=== PATIENT | female | born 1975 | race Caucasian/White ===

== ENCOUNTER 2019-06-14 11:20 | Emergency (ER) | payer MEDICAID ==
--- NOTE | 2019-06-14 12:04 | EDM.PDOC ---
ED HPI GENERAL MEDICAL PROBLEM - General Chief Complaint: Fever Stated Complaint: COUGH,FEVER,RIGHT RIB PAIN Time Seen by Provider: 06/14/19 11:50 Source of Information: Reports: Patient, RN History Limitations: Reports: No Limitations - History of Present Illness INITIAL COMMENTS - FREE TEXT/NARRATIVE: 44 yo female presents with a cough and rib pain. Reports low grade fevers intermittently for about a week. Has clear rhinorrhea. Was given prednisone and azithromycin recently without much benefit. Has a nebulizer for her wheezing. Was apparently told by a small lot operator that she has asthma. Rib pain on R ant/ lateral chest catarina bad with coughing. Is currently taking acetaminophen and ibuprofen. Onset: Gradual Duration: Day(s):, Constant Location: Reports: Chest (R ant/lat.) Quality: Reports: Sharp, Stabbing Severity: Moderate Improves with: Reports: Rest (and not coughing or deep breathing.) Worsens with: Reports: Movement Context: Reports: Other (see HPI) Associated Symptoms: Reports: Cough, Fever/Chills. Denies: Shortness of Breath Treatments NURSING HOME ASSISTANT: Reports: Acetaminophen, NSAIDS Right Lower Chest Pain Score (Numeric/FACES): 9 - Related Data Allergies Allergy/AdvReac Type Severity Reaction Status Date / Time blue dye Allergy Anaphylactic Verified 06/14/19 11:38 Shock dofetilide Allergy Cannot Verified 06/14/19 11:38 Remember flecainide Allergy Anaphylactic Verified 06/14/19 11:38 Shock latex Allergy Hives Verified 06/14/19 11:38 Penicillins Allergy Anaphylactic Verified 06/14/19 11:38 Shock propafenone Allergy Anaphylactic Verified 06/14/19 11:38 Shock Sulfa (Sulfonamide Allergy Anaphylactic Verified 06/14/19 11:38 Antibiotics) Shock yellow dye Allergy Anaphylactic Verified 06/14/19 11:38 Shock codeine AdvReac Vomiting Verified 06/14/19 11:38 Home Meds: Home Meds Albuterol Sulfate 2.5 mg IH Q4HR 06/14/19 [History] Albuterol [Ventolin HFA] 1 puff .XX ASDIRECTED 06/14/19 [History] Estrogens, Conjugated [Premarin] 0.625 mg PO DAILY 06/14/19 [History] Fluticasone Propionate [Flovent HFA] 1 puff INH BID 06/14/19 [History] Levothyroxine Sodium [Synthroid] 175 mcg PO ACBREAKFAST 06/14/19 [History] Topiramate [Topamax] 50 mg PO DAILY 06/14/19 [History] buPROPion HCl [Bupropion Xl] 450 mg PO DAILY 06/14/19 [History] Past Medical History Cardiovascular History: Reports: Automatic Implantable Cardioverter Defibrillators, Pacemaker Other Cardiovascular History: chronic v-fib. 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: Endocrine/Metabolic History: Reports: Other (See Below) Other Endocrine/Metabolic History: thyroid cancer Oncologic (Cancer) History: Reports: Ovarian, Thyroid - Past Surgical History HEENT Surgical History: Reports: Adenoidectomy, Tonsillectomy Cardiovascular Surgical History: Reports: AICD, Other (See Below) Other Cardiovascular Surgeries/Procedures: cardiac surgery GI Surgical History: Reports: Appendectomy, Cholecystectomy Female Surgical History: Reports: Hysterectomy, Salpingo-Oophorectomy Social & Family History - Tobacco Use Smoking Status *Q: Never Smoker - Caffeine Use Caffeine Use: Reports: None - Recreational Drug Use Recreational Drug Use: No ED ROS GENERAL - Review of Systems Review Of Systems: See Below Constitutional: Reports: Fever, Chills HEENT: Reports: Rhinitis. Denies: Ear Pain, Throat Pain Respiratory: Reports: Wheezing, Pleuritic Chest Pain, Cough. Denies: Shortness of Breath, Sputum, Hemoptysis Cardiovascular: Reports: No Symptoms GI/Abdominal: Reports: No Symptoms : Reports: No Symptoms Skin: Reports: No Symptoms Neurological: Reports: No Symptoms Psychiatric: Reports: No Symptoms ED EXAM, GENERAL - Physical Exam Exam: See Below Exam Limited By: No Limitations General Appearance: Alert, WD/WN, No Apparent Distress Eye Exam: Bilateral Eye: Normal Inspection Ears: Normal External Exam, Normal Canal, Hearing Grossly Normal, Normal TMs Ear Exam: Bilateral Ear: Auricle Normal, Canal Normal, TM normal Nose: Clear Rhinorrhea Throat/Mouth: Normal Inspection, Normal Lips, Normal Oropharynx, Normal Voice, No Airway Compromise Head: Atraumatic, Normocephalic Neck: Normal Inspection Respiratory/Chest: No Respiratory Distress, No Accessory Muscle Use, Wheezing ( faint). No: Respiratory Distress, Crackles, Rales, Rhonchi, Retractions Cardiovascular: Regular Rate, Rhythm, No Edema Extremities: Normal Inspection Neurological: Alert, Oriented, CN II-XII Intact, Normal Cognition, No Motor/ Sensory Deficits Psychiatric: Normal Affect, Normal Mood Skin Exam: Warm, Dry, Intact, Normal Color, No Rash Course - Vital Signs Last Recorded V/S: Last Vital Signs Temp 36.9 C 06/14/19 11:48 Pulse 82 06/14/19 11:48 Resp 16 06/14/19 11:34 BP 133/80 06/14/19 11:48 Pulse Ox 96 06/14/19 11:48 - Orders/Labs/Meds Labs: Laboratory Tests 06/14/19 Range/Units 12:01 WBC 9.7 (4.5-11.0) K/uL RBC 4.56 (3.30-5.50) M/uL Hgb 14.0 (12.0-15.0) g/dL Hct 42.1 (36.0-48.0) % MCV 92 (80-98) fL MCH 31 (27-31) pg MCHC 33 (32-36) % Plt Count 326 (150-400) K/uL Departure - Departure Time of Disposition: 12:33 Disposition: Home, Self-Care 01 Condition: Good Clinical Impression: Bronchospasm, Rib pain on right side, Cough - Discharge Information *PRESCRIPTION DRUG MONITORING PROGRAM REVIEWED*: No *COPY OF PRESCRIPTION DRUG MONITORING REPORT IN PATIENT JAG: No Instructions: Chest Wall Pain, [id number] Referrals: PCP,None [Primary Care Provider] - Forms: ED Department Discharge Additional Instructions: Add budesonide twice daily to your nebulizer. Use your albuterol every 4 hrs until you are over your current illness. Continue acetaminophen up to 1000 mg every 6 hrs for pain relief. Add ibuprofen 600 mg every 6 hrs as needed for added relief. Use Delsym for cough, follow package instructions. Consider use of a rib belt for rib support. Seek our allergy testing if able to find out what is causing your wheezing, you may be able to get allergy shots to reduce your sensitivity to agents you have become allergic to. Recheck as needed.
== END 2019-06-14 12:55 | disposition home or self-care (01) ==
LOC: JP.ED 11:20
DX: J98.01 Acute bronchospasm (principal); R07.81 Pleurodynia; Z88.0 Allergy status to penicillin; Z88.2 Allergy status to sulfonamides; Z88.5 Allergy status to narcotic agent; Z88.8 Allergy status to other drugs, medicaments and biological substances; Z91.040 Latex allergy status; Z91.048 Other nonmedicinal substance allergy status; Z79.899 Other long term (current) drug therapy
CPT/HCPCS: 36415; 85027; 99283

== ENCOUNTER 2019-07-10 12:47 | Emergency (ER) | payer MEDICAID ==
--- NOTE | 2019-07-10 13:21 | EDM.PDOC ---
ED HPI GENERAL MEDICAL PROBLEM - General Chief Complaint: Allergic Reaction Stated Complaint: MED REACTION Time Seen by Provider: 07/10/19 13:15 Source of Information: Reports: Patient History Limitations: Reports: No Limitations - History of Present Illness INITIAL COMMENTS - FREE TEXT/NARRATIVE: 44-year-old female who has a history of multiple allergies, took her first dose of Macrobid this morning for a recently diagnosed UTI. Within 2 hours she had a widespread erythematous very itchy rash, nasal congestion and mild shortness of breath. She took an EpiPen dose, is feeling better but called her primary provider and they recommended she come in to be checked. She still has "numb lips", still has itchy arms and stomach but the rash has improved. Shortness of breath has improved as well. Onset: Sudden Duration: Hour(s): (2 hours ago) Location: Reports: Generalized Associated Symptoms: Reports: Shortness of Breath. Denies: Confusion, Chest Pain, Fever/Chills, Nausea/Vomiting - Related Data Allergies Allergy/AdvReac Type Severity Reaction Status Date / Time blue dye Allergy Anaphylactic Verified 07/10/19 13:02 Shock dofetilide Allergy Cannot Verified 07/10/19 13:02 Remember flecainide Allergy Anaphylactic Verified 07/10/19 13:02 Shock latex Allergy Hives Verified 07/10/19 13:02 nitrofurantoin Allergy Hives Verified 07/10/19 13:02 [From Macrobid] Penicillins Allergy Anaphylactic Verified 07/10/19 13:02 Shock propafenone Allergy Anaphylactic Verified 07/10/19 13:02 Shock Sulfa (Sulfonamide Allergy Anaphylactic Verified 07/10/19 13:02 Antibiotics) Shock yellow dye Allergy Anaphylactic Verified 07/10/19 13:02 Shock codeine AdvReac Vomiting Verified 07/10/19 13:02 Home Meds: Home Meds Albuterol Sulfate 2.5 mg IH Q4HR 06/14/19 [History] Albuterol [Ventolin HFA] 1 puff .XX ASDIRECTED 06/14/19 [History] Budesonide [Pulmicort] 0.25 mg .XX BID #60 neb 06/14/19 [Rx] Estrogens, Conjugated [Premarin] 0.625 mg PO DAILY 06/14/19 [History] Fluticasone Propionate [Flovent HFA] 1 puff INH BID 06/14/19 [History] Levothyroxine Sodium [Synthroid] 175 mcg PO ACBREAKFAST 06/14/19 [History] Topiramate [Topamax] 50 mg PO DAILY 06/14/19 [History] buPROPion HCl [Bupropion Xl] 450 mg PO DAILY 06/14/19 [History] Past Medical History Cardiovascular History: Reports: Automatic Implantable Cardioverter Defibrillators, Pacemaker Other Cardiovascular History: chronic v-fib. 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: Endocrine/Metabolic History: Reports: Other (See Below) Other Endocrine/Metabolic History: thyroid cancer Oncologic (Cancer) History: Reports: Ovarian, Thyroid - Past Surgical History HEENT Surgical History: Reports: Adenoidectomy, Tonsillectomy Cardiovascular Surgical History: Reports: AICD, Other (See Below) Other Cardiovascular Surgeries/Procedures: cardiac surgery GI Surgical History: Reports: Appendectomy, Cholecystectomy Female Surgical History: Reports: Hysterectomy, Salpingo-Oophorectomy Social & Family History - Tobacco Use Smoking Status *Q: Never Smoker - Caffeine Use Caffeine Use: Reports: None ED ROS ALLERGIC REACTION - Review of Systems Review Of Systems: See Below Constitutional: Reports: Malaise. Denies: Fever, Chills HEENT: Reports: Rhinitis Respiratory: Reports: Shortness of Breath, Wheezing Cardiovascular: Denies: Chest Pain GI/Abdominal: Denies: Abdominal Pain, Nausea, Vomiting Skin: Reports: Rash ED EXAM GENERAL NO PERIP PULSE - Physical Exam Exam: See Below Exam Limited By: No Limitations General Appearance: Alert, No Apparent Distress, Anxious Throat/Mouth: Normal Inspection Head: Atraumatic Respiratory/Chest: No Respiratory Distress, Lungs Clear Cardiovascular: Regular Rate, Rhythm. No: Tachycardia Extremities: No: Pedal Edema Neurological: Alert, Oriented Psychiatric: Anxious Skin Exam: Warm, Dry, Other (Some scattered blanching erythema on the chest, cheeks and upper arms, no urticaria) Course - Vital Signs Last Recorded V/S: Last Vital Signs Temp 95.7 F 07/10/19 13:07 Pulse 91 07/10/19 13:07 Resp 17 07/10/19 13:07 BP 150/65 H 07/10/19 13:07 Pulse Ox 96 07/10/19 13:07 - Orders/Labs/Meds Meds: Medications Discontinued Medications Generic Name Dose Route Start Last Admin Trade Name [place] PRN Reason Stop Dose Admin Diphenhydramine HCl 50 mg 07/10/19 13:27 07/10/19 13:44 Benadryl IM 07/10/19 13:28 50 mg ONETIME ONE Administration - Re-Assessments/Exams Free Text/Narrative Re-Assessment/Exam: 07/10/19 13:51 Patient was given 50 mg of IM Benadryl and will be observed. 07/10/19 14:09 Patient continued to improve and stabilize. She'll be continued on 40 mg of prednisone daily for the next 2-5 days, and she can start cephalexin tomorrow 3 times daily for the UTI. I also refilled her prescription for EpiPen's for future use. She can return anytime if worsening despite treatment. Departure - Departure Time of Disposition: 14:16 Disposition: Home, Self-Care 01 Clinical Impression: Allergic reaction caused by a drug Qualifiers: Encounter type: initial encounter Qualified Code(s): T78.40XA - Allergy, unspecified, initial encounter - Discharge Information Instructions: Allergies, Adult, [id number] Referrals: PCP,None [Primary Care Provider] - Forms: ED Department Discharge Care Plan Goals: Take 4 pills of prednisone with food daily for the next 2-5 days. Start antibiotic tomorrow, take 3 times daily for 10 doses. Continue with Benadryl as needed for rash and itching, and felt EpiPen prescription for further use. Return anytime if worsening despite treatment. Inform your primary doctor of the allergic reaction to Macrobid.
[2019-07-10] MEDS: diphenhydrAMINE 50 MG/ML SDV IM ONE (13:44)
== END 2019-07-10 14:16 | disposition home or self-care (01) ==
LOC: JP.ED 12:47
DX: L29.9 Pruritus, unspecified (principal); T37.8X5A Adverse effect of other specified systemic anti-infectives and antiparasitics, initial encounter; J45.909 Unspecified asthma, uncomplicated; Z91.041 Radiographic dye allergy status; Z91.040 Latex allergy status; Z88.8 Allergy status to other drugs, medicaments and biological substances; Z88.0 Allergy status to penicillin; Z88.2 Allergy status to sulfonamides; Z88.5 Allergy status to narcotic agent; Z79.899 Other long term (current) drug therapy
CPT/HCPCS: 96372; 99284-25; J1200

== ENCOUNTER 2019-10-13 18:26 | Emergency (ER) | payer MEDICAID, OTHER ==
--- NOTE | 2019-10-13 19:08 | EDM.PDOC ---
ED HPI GENERAL MEDICAL PROBLEM - General Chief Complaint: ENT Problem Stated Complaint: PAIN POST SURGERY Time Seen by Provider: 10/13/19 18:58 Source of Information: Reports: Patient History Limitations: Reports: No Limitations - History of Present Illness INITIAL COMMENTS - FREE TEXT/NARRATIVE: Patient presents for evaluation of retro-ocular pain which has come up and stayed over the last 2 days. On Thursday, 11 October, she underwent bilateral septoplasty and sinus surgery with ENT surgeons at the [facility]. Surgery originally was scheduled for approximately 2.5 hours but ended up going 5 hours because of difficulties completing the procedure. She has a plastic splint in place in the nostrils since the surgery. She is doing irrigation of the nostrils and sinus region. She gets some blood in the irrigant fluid but no hai bleeding. A forehead thermometer at home read 102. She has taken a couple doses of Tylenol in the last 24 hours but the retro-ocular pain, which is bilateral, is unchanged. No new symptoms apart from this area she was given a prescription for hydrocodone but does not like how narcotics make her feel and hasn't used anything for pain apart from Tylenol. 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: Acetaminophen - Related Data Allergies Allergy/AdvReac Type Severity Reaction Status Date / Time blue dye Allergy Anaphylactic Verified 10/13/19 19:03 Shock dofetilide Allergy Cannot Verified 10/13/19 19:03 Remember flecainide Allergy Anaphylactic Verified 10/13/19 19:03 Shock latex Allergy Hives Verified 10/13/19 19:03 nitrofurantoin Allergy Hives Verified 10/13/19 19:03 [From Macrobid] Penicillins Allergy Anaphylactic Verified 10/13/19 19:03 Shock propafenone Allergy Anaphylactic Verified 10/13/19 19:03 Shock Sulfa (Sulfonamide Allergy Anaphylactic Verified 10/13/19 19:03 Antibiotics) Shock yellow dye Allergy Anaphylactic Verified 10/13/19 19:03 Shock codeine AdvReac Vomiting Verified 10/13/19 19:03 Home Meds: Home Meds Albuterol Sulfate 2.5 mg IH Q4HR 06/14/19 [History] Albuterol [Ventolin HFA] 1 puff .XX ASDIRECTED 06/14/19 [History] Budesonide [Pulmicort] 0.25 mg .XX BID #60 neb 06/14/19 [Rx] Estrogens, Conjugated [Premarin] 0.625 mg PO DAILY 06/14/19 [History] Fluticasone Propionate [Flovent HFA] 1 puff INH BID 06/14/19 [History] Levothyroxine Sodium [Synthroid] 175 mcg PO ACBREAKFAST 06/14/19 [History] buPROPion HCl [Bupropion Xl] 450 mg PO DAILY 06/14/19 [History] Acetaminophen [Tylenol] 325 mg PO DAILY 10/13/19 [History] Aspirin [Halfprin] 81 mg PO DAILY 10/13/19 [History] EPINEPHrine [Epinephrine] 0.3 mg IM ASDIRECTED 10/13/19 [History] Fluticasone Propion/Salmeterol [Wixela 250-50 Inhub] 1 dose IN ASDIRECTED [History] Ibuprofen 800 mg PO DAILY 10/13/19 [History] Omeprazole 40 mg PO DAILY 10/13/19 [History] Past Medical History Cardiovascular History: Reports: Automatic Implantable Cardioverter Defibrillators, Pacemaker Other Cardiovascular History: chronic v-fib. 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: Endocrine/Metabolic History: Reports: Other (See Below) Other Endocrine/Metabolic History: thyroid cancer Oncologic (Cancer) History: Reports: Ovarian, Thyroid - Past Surgical History HEENT Surgical History: Reports: Adenoidectomy, Naso-Sinus Surgery, Tonsillectomy Cardiovascular Surgical History: Reports: AICD, Other (See Below) Other Cardiovascular Surgeries/Procedures: cardiac surgery GI Surgical History: Reports: Appendectomy, Cholecystectomy Female Surgical History: Reports: Hysterectomy, Salpingo-Oophorectomy Social & Family History - Caffeine Use Caffeine Use: Reports: None ED ROS ENT - Review of Systems Review Of Systems: Comprehensive ROS is negative, except as noted in HPI. ED EXAM, ENT - Physical Exam Exam: See Below Exam Limited By: No Limitations General Appearance: Alert, Moderate Distress Nose: Clear Rhinorrhea, Nasal Swelling, Nasal Tenderness, Other (There is a translucent nasal splint in place in each of the nostrils.). No: Septal Hematoma, Active Bleeding, Dried Blood Neck: Normal Inspection Respiratory/Chest: No Respiratory Distress, Lungs Clear Course - Vital Signs Last Recorded V/S: Last Vital Signs Temp 35.2 C 10/13/19 19:02 Pulse 79 10/13/19 19:02 Resp 16 10/13/19 19:02 BP 113/66 10/13/19 19:02 Pulse Ox 96 10/13/19 19:02 - Re-Assessments/Exams Free Text/Narrative Re-Assessment/Exam: 10/13/19 19:30 I put a call into the answering service for her surgical group at [phone]. They will contact the on-call surgeon and have them contact us here. 10/13/19 19:52 I reviewed her case with Dr. Geronimo, the on-call surgeon from their group. He recommends using Afrin nasal spray as part of her irrigation regimen along with some stronger pain medication. When I discussed this with the patient, she is adamant against using hydrocodone as she has a daughter that was addicted to it. We settled in stand on using tramadol. A prescription was sent with her for tramadol 50 mg, 12 tablets; one half or 1 tablet up to 3 times a day as needed. She should contact her surgeon tomorrow and update them on how she did overnight. Departure - Departure Time of Disposition: 19:53 Disposition: Home, Self-Care 01 Condition: Good Clinical Impression: Sinus pain, H/O sinus surgery - Discharge Information *PRESCRIPTION DRUG MONITORING PROGRAM REVIEWED*: Not Applicable *COPY OF PRESCRIPTION DRUG MONITORING REPORT IN PATIENT JAG: Not Applicable Instructions: Tramadol tablets, Sinus Endoscopy, Care After, How to Perform a Sinus Rinse Referrals: Pat Funes PA-C [Primary Care Provider] - Forms: ED Department Discharge Additional Instructions: Pickup tramadol tablets and use as prescribed for your pain. Also get some Afrin (oxymetazoline) nasal spray to use as part of your irrigation plan. Contact your surgeon's office tomorrow and let them know how you feel with these changes. You should continue your antibiotic. Sepsis Event Note - Focused Exam Vital Signs: Vital Signs Temp Pulse Resp BP Pulse Ox 10/13/19 19:02 35.2 C 79 16 113/66 96 10/13/19 18:40 35.2 C 79 16 113/66 96 Date Exam was Performed: 10/13/19 Time Exam was Performed: 21:47
== END 2019-10-13 20:04 | disposition home or self-care (01) ==
LOC: JP.ED 18:26
DX: J34.89 Other specified disorders of nose and nasal sinuses (principal); J45.909 Unspecified asthma, uncomplicated; Z98.890 Other specified postprocedural states; Z91.041 Radiographic dye allergy status; Z91.040 Latex allergy status; Z88.1 Allergy status to other antibiotic agents; Z88.2 Allergy status to sulfonamides; Z88.5 Allergy status to narcotic agent; Z88.8 Allergy status to other drugs, medicaments and biological substances; Z79.51 Long term (current) use of inhaled steroids; Z79.82 Long term (current) use of aspirin
CPT/HCPCS: 99283

== ENCOUNTER 2019-11-06 10:58 | Emergency (ER) | payer MEDICAID ==
--- NOTE | 2019-11-06 12:08 | EDM.PDOC ---
ED HPI GENERAL MEDICAL PROBLEM - General Chief Complaint: Genitourinary Problem Stated Complaint: BLADDER INFECTION Time Seen by Provider: 11/06/19 12:09 Source of Information: Reports: Patient History Limitations: Reports: No Limitations - History of Present Illness INITIAL COMMENTS - FREE TEXT/NARRATIVE: pt has had 3 UTIs in the last 2 monthes. She was in Sep. She has also been off of her premarin due to insurance reasons. She is working to get back on this. She sees herself as mcfarlane and now she is having hot flashes Onset: Gradual, Other ( Her urine symptoms started about 1.5 weeks ago. ) Duration: Hour(s): Location: Reports: Generalized Left Flank Pain Score (Numeric/FACES): 5 - Related Data Allergies Allergy/AdvReac Type Severity Reaction Status Date / Time blue dye Allergy Anaphylactic Verified 11/06/19 11:23 Shock dofetilide Allergy Cannot Verified 11/06/19 11:23 Remember flecainide Allergy Anaphylactic Verified 11/06/19 11:23 Shock Penicillins Allergy Anaphylactic Verified 11/06/19 11:23 Shock propafenone Allergy Anaphylactic Verified 11/06/19 11:23 Shock Sulfa (Sulfonamide Allergy Anaphylactic Verified 11/06/19 11:23 Antibiotics) Shock yellow dye Allergy Anaphylactic Verified 11/06/19 11:23 Shock codeine AdvReac Vomiting Verified 11/06/19 11:23 Home Meds: Home Meds Albuterol Sulfate 2.5 mg IH Q4HR 06/14/19 [History] Albuterol [Ventolin HFA] 1 puff .XX ASDIRECTED 06/14/19 [History] Budesonide [Pulmicort] 0.25 mg .XX BID #60 neb 06/14/19 [Rx] Estrogens, Conjugated [Premarin] 0.625 mg PO DAILY 06/14/19 [History] Levothyroxine Sodium [Synthroid] 175 mcg PO ACBREAKFAST 06/14/19 [History] buPROPion HCl [Bupropion Xl] 450 mg PO DAILY 06/14/19 [History] Acetaminophen [Tylenol] 325 mg PO DAILY 10/13/19 [History] Aspirin [Halfprin] 81 mg PO DAILY 10/13/19 [History] EPINEPHrine [Epinephrine] 0.3 mg IM ASDIRECTED 01/30/20 [History] Fluticasone Propion/Salmeterol [Wixela 250-50 Inhub] 1 dose IN ASDIRECTED [History] Ibuprofen 800 mg PO DAILY 10/13/19 [History] Omeprazole 40 mg PO DAILY 10/13/19 [History] Past Medical History Cardiovascular History: Reports: [place], Pacemaker, Prior Cardiac Arrest Other Cardiovascular History: chronic v-fib. 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: Endocrine/Metabolic History: Reports: Other (See Below) Other Endocrine/Metabolic History: thyroid removed Oncologic (Cancer) History: Reports: Ovarian - Past Surgical History HEENT Surgical History: Reports: Adenoidectomy, Naso-Sinus Surgery, Tonsillectomy Cardiovascular Surgical History: Reports: Cardiac Ablation, Pacer, Other (See Below) Other Cardiovascular Surgeries/Procedures: cardiac surgery GI Surgical History: Reports: Appendectomy, Cholecystectomy Female Surgical History: Reports: Hysterectomy, Salpingo-Oophorectomy Social & Family History - Tobacco Use Smoking Status *Q: Never Smoker - Caffeine Use Caffeine Use: Reports: Soda Other Caffeine Use: 1 per day - Recreational Drug Use Recreational Drug Use: No ED ROS GENERAL - Review of Systems Review Of Systems: See Below Constitutional: Reports: Chills HEENT: Reports: No Symptoms Respiratory: Reports: No Symptoms Cardiovascular: Reports: No Symptoms Endocrine: Reports: No Symptoms GI/Abdominal: Reports: Other (pt does have some flank pain. ) : Reports: Dysuria, Frequency, Other ( urine is very foul in nature) Musculoskeletal: Reports: No Symptoms Neurological: Reports: No Symptoms ED EXAM, GI/ABD - Physical Exam Exam: See Below Text/Narrative:: pt arrived with a history of urionary frquency and foul smelling urione. She does drink alot of water. Exam Limited By: No Limitations General Appearance: Alert, Anxious Ears: Normal TMs Nose: Normal Inspection Throat/Mouth: Normal Inspection Head: Atraumatic Neck: Normal Inspection Respiratory/Chest: No Respiratory Distress Cardiovascular: Regular Rate, Rhythm GI/Abdominal Exam: Non-Tender Rectal (Female) Exam: Deferred Back Exam: Normal Inspection Extremities: Normal Inspection Neurological: Alert, Oriented, Normal Cognition Course - Vital Signs Last Recorded V/S: Last Vital Signs Temp 36.3 C 11/06/19 11:14 Pulse 79 11/06/19 11:14 Resp 16 11/06/19 11:14 BP 134/74 11/06/19 11:14 Pulse Ox 96 11/06/19 11:14 - Orders/Labs/Meds Orders: Active Orders 24 hr Category Date Time Status CULTURE URINE [RM] Stat Lab 11/06/19 11:55 Received Labs: Laboratory Tests 11/06/19 Range/Units 11:01 Urine Color Yellow (YELLOW) Urine Appearance Cloudy A (CLEAR) Urine pH 6.5 (5.0-8.0) Ur Specific [place] 1.020 (1.008-1.030) Urine Protein Negative (NEGATIVE) mg/dL Urine Glucose (UA) Negative (NEGATIVE) mg/dL Urine Ketones Negative (NEGATIVE) mg/dL Urine Occult Blood Negative (NEGATIVE) Urine Nitrite Positive H (NEGATIVE) Urine Bilirubin Negative (NEGATIVE) Urine Urobilinogen 0.2 (0.2-1.0) EU/dL Ur Leukocyte Esterase Trace H (NEGATIVE) Urine RBC 0-5 (0-5) Urine WBC 10-20 H (0-5) Ur Epithelial Cells Moderate Amorphous Sediment Not seen Urine Bacteria Many Urine Mucus Not seen - Re-Assessments/Exams Free Text/Narrative Re-Assessment/Exam: 11/06/19 12:14 urine has a positive nitrite, and does look infected. A culture was set up. Departure - Departure Time of Disposition: 12:04 Disposition: Home, Self-Care 01 Condition: Fair Clinical Impression: UTI (urinary tract infection) - Discharge Information Referrals: Pat Funes PA-C [Primary Care Provider] - Forms: ED Department Discharge Care Plan Goals: push fluids, cipro 500mg bid,--for 10 days, appt with regular provider to recheck urine to see if it completely clears. Also the provider need to help faciltate getting her back on her premarin and follow if she has had an acute kidney injury. Sepsis Event Note - Evaluation Sepsis Screening Result: No Definite Risk - Focused Exam Vital Signs: Vital Signs Temp Pulse Resp BP Pulse Ox 11/06/19 11:14 36.3 C 79 16 134/74 96 Date Exam was Performed: 11/06/19 Time Exam was Performed: 12:09 - My Orders Last 24 Hours: My Active Orders 11/06/19 11:55 CULTURE URINE [RM] Stat - Assessment/Plan Last 24 Hours: My Active Orders 11/06/19 11:55 CULTURE URINE [] Stat
== END 2019-11-06 12:15 | disposition home or self-care (01) ==
LOC: JP.ED 10:58
DX: N39.0 Urinary tract infection, site not specified (principal); J45.909 Unspecified asthma, uncomplicated; Z79.82 Long term (current) use of aspirin; Z79.899 Other long term (current) drug therapy; Z88.5 Allergy status to narcotic agent; Z88.2 Allergy status to sulfonamides; Z91.09 Other allergy status, other than to drugs and biological substances; Z88.0 Allergy status to penicillin; Z88.8 Allergy status to other drugs, medicaments and biological substances
CPT/HCPCS: 81001; 87086; 87088; 87186; 99283

== ENCOUNTER 2019-12-09 10:33 | Observation (INO) | payer MEDICAID ==
[2019-12-09] MEDS: Dextrose 5%-Lactated Ringers 1,000 ML IV SCH ×2 (12:18→19:46)
[2019-12-09] MEDS ORDERED: Lidocaine 2% Viscous Solution 15 ML Cup ONE (12:30)
[2019-12-09] MEDS ORDERED: Lidocaine 4% Top Soln 50 ML Bottle ONE (12:30)
[2019-12-09] MEDS ORDERED: Propofol 200 MG/20 ML SDV ONE (12:41)
[2019-12-09] MEDS ORDERED: fentaNYL 100 MCG/2 ML SDV ONE (12:42)
[2019-12-09] MEDS ORDERED: Midazolam 1 MG/ML 2 ML SDV ONE (12:42)
[2019-12-09] MEDS ORDERED: Lidocaine 4% Top Soln LTA 4 ML Syringe Kit ONE (12:43)
[2019-12-09] MEDS ORDERED: Albuterol 0.083% 2.5 MG/3 ML Neb Soln NEB ONE (16:21)
[2019-12-09] MEDS ORDERED: Ondansetron 4 MG Tab.DIS PO PRN (16:48)
[2019-12-09] MEDS ORDERED: Ondansetron 4 MG/2 ML SDV IV PRN (16:48)
[2019-12-09] MEDS ORDERED: LORazepam 2 MG/ML SDV IVPUSH PRN (16:48)
[2019-12-09] MEDS ORDERED: Magnesium Hydroxide 400 MG/5 ML Susp 30 ML Cup PO PRN (16:48)
[2019-12-09] MEDS ORDERED: Sodium Chloride 0.9% 10 ML Syringe FLUSH PRN (16:48)
[2019-12-09] MEDS ORDERED: Acetaminophen 325 MG Tab PO PRN (16:48)
[2019-12-09] MEDS ORDERED: Ibuprofen 600 MG Tab PO PRN (16:48)
[2019-12-09] MEDS ORDERED: Albuterol 0.083% 2.5 MG/3 ML Neb Soln NEB PRN (16:48)
[2019-12-09] MEDS ORDERED: Benzonatate 100 MG Cap PO PRN (16:50)
[2019-12-09] MEDS ORDERED: Pantoprazole 40 MG Tab.CR PO PRN (16:51)
--- NOTE | 2019-12-09 16:54 | PCM.HP.2 ---
H&P History of Present Illness - General Date of Service: 12/09/19 Admit Problem/Dx: Admission Diagnosis/Problem Admission Diagnosis/Problem Acute bronchitis Source of Information: Patient, Family, Provider History Limitations: Reports: No Limitations - History of Present Illness Initial Comments - Free Text/Narative: CC: I keep coughing HPI: Taisha presented to [facility] today for a bronchoscopy to help further diagnose a chronic cough and suspicion for pulmonary aspergillosis. After the bronchoscopy she has been hypoxic, coughing and wheezing. She reports that she has been dealing with a cough for about 1 year. She has seen multiple specialists and had an extensive work-up. Recently she had serology testing and was positive for Aspergillus. Treatment with itraconazole was recommended but this medication is quite expensive and she is unable to afford it. Over the past 3 days she has had an increase in her cough as well as some intermittent sputum production. She has had fevers to 102 at home but reports this has been going on almost daily for a year. She feels more short of breath than usual. She has some tightness in her chest with coughing. She does not have any pleuritic pain. Appetite and energy have been slightly decreased from baseline. She has been using a variety of different inhalers at home but none have provided much benefit. No complaints of nausea or abdominal pain. No change in bowel or bladder habits. No skin rashes. No recent travel and she has been sequestered at home for the past 2 weeks. Review of the microbiology from the bronchoscopy reveals no fungal elements were seen. Rare gram-positive cocci were noted on the Gram stain. She continues to require 1 L of supplemental oxygen and will be admitted for observation with the suspicion that she has an acute bronchitis on top of her chronic pulmonary aspergillosis. - Related Data Allergies/Adverse Reactions: Allergies Allergy/AdvReac Type Severity Reaction Status Date / Time blue dye Allergy Anaphylactic Verified 12/09/19 11:07 Shock dofetilide Allergy Cannot Verified 12/09/19 11:07 Remember flecainide Allergy Anaphylactic Verified 12/09/19 11:07 Shock Penicillins Allergy Anaphylactic Verified 12/09/19 11:07 Shock propafenone Allergy Anaphylactic Verified 12/09/19 11:07 Shock Sulfa (Sulfonamide Allergy Anaphylactic Verified 12/09/19 11:07 Antibiotics) Shock yellow dye Allergy Anaphylactic Verified 12/09/19 11:07 Shock codeine AdvReac Vomiting Verified 12/09/19 11:07 Home Medications: Home Meds Albuterol Sulfate 2.5 mg IH Q4HR 06/14/19 [History] Albuterol [Ventolin HFA] 1 puff .XX ASDIRECTED 06/14/19 [History] Budesonide [Pulmicort] 0.25 mg .XX BID #60 neb 06/14/19 [Rx] Estrogens, Conjugated [Premarin] 0.625 mg PO DAILY 06/14/19 [History] Levothyroxine Sodium [Synthroid] 175 mcg PO ACBREAKFAST 06/14/19 [History] buPROPion HCl [Bupropion Xl] 450 mg PO DAILY 06/14/19 [History] Acetaminophen [Tylenol] 325 mg PO DAILY 10/13/19 [History] Aspirin [Halfprin] 81 mg PO DAILY 10/13/19 [History] EPINEPHrine [Epinephrine] 0.3 mg IM ASDIRECTED 10/13/19 [History] Ibuprofen 800 mg PO DAILY 10/13/19 [History] Omeprazole 40 mg PO DAILY PRN 10/13/19 [History] Gabapentin [Neurontin] 300 mg PO DAILY 12/09/19 [History] Ipratropium [Atrovent] 1 inh INH DAILY 12/09/19 [History] Past Medical History HEENT History: Reports: None Cardiovascular History: Reports: Afib, [place], Pacemaker, Prior Cardiac Arrest Other Cardiovascular History: chronic v-fib. 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 - Past Surgical History HEENT Surgical History: Reports: Adenoidectomy, Naso-Sinus Surgery, Tonsillectomy Cardiovascular Surgical History: Reports: Cardiac Ablation, Pacer, Other (See Below) Other Cardiovascular Surgeries/Procedures: cardiac surgery Respiratory Surgical History: Reports: None GI Surgical History: Reports: Appendectomy, Cholecystectomy Female Surgical History: Reports: Hysterectomy, Salpingo-Oophorectomy Endocrine Surgical History: Reports: Thyroidectomy Neurological Surgical History: Reports: Lumbar Spine, Spinal Fusion Musculoskeletal Surgical History: Reports: Other (See Below) Other Musculoskeletal Surgeries/Procedures:: foot surgery Oncologic Surgical History: Reports: None Dermatological Surgical History: Reports: Other (See Below) Social & Family History - Family History Cardiac: Reports: CAD Oncologic: Reports: Lung - Tobacco Use Smoking Status *Q: Never Smoker Second Hand Smoke Exposure: No - Caffeine Use Caffeine Use: Reports: Soda Other Caffeine Use: 1 per day - Recreational Drug Use Recreational Drug Use: No H&P Review of Systems - Review of Systems: Review Of Systems: See Below Free Text/Narrative: A complete 12 point review of systems was obtained. Pertinent positives and negatives are noted in the history of present illness. All other systems were reviewed and were negative except as noted. Exam - Exam Exam: See Below - Vital Signs Vital Signs: Last Vital Signs Temp 37.2 C 12/09/19 13:30 Pulse 93 12/09/19 15:30 Resp 16 12/09/19 16:20 BP 138/78 12/09/19 15:30 Pulse Ox 95 12/09/19 16:20 Weight: 70.987 kg - Exam Quality Assessment: Supplemental Oxygen General: Alert, Oriented, Cooperative, Mild Distress HEENT: Conjunctiva Clear, Mucosa Moist & [place]. No: Scleral Icterus Neck: Supple, Trachea Midline. No: Lymphadenopathy Lungs: Wheezing (Mild to moderate diffuse expiratory). No: Normal Respiratory Effort (Increased work of breathing), Crackles, Rhonchi Cardiovascular: Regular Rate, Regular Rhythm GI/Abdominal Exam: Normal Bowel Sounds, Soft, Non-Tender, No Distention, No Mass Back Exam: Normal Inspection, Full Range of Motion Extremities: No Pedal Edema. No: Increased Warmth Peripheral Pulses: 2+: Dorsalis Pedis (L), Dorsalis Pedis (R) Skin: Warm, Dry. No: Rash Neuro Extensive - Mental Status: Alert, Oriented x3, Nl Response to Commands Neuro Extensive - Motor, Sensory, Reflexes: No: Dysarthria, Abnormal Motor, Tremor Psychiatric: Alert, Normal Affect - Patient Data Liam Results Last 24 hrs: Microbiology 12/09/19 12:56 LYNN Preparation - Final Other - Lung, Left 12/09/19 12:56 Gram Stain - Final Bronchial Alveolar Lavage - Left Upper Lobe 12/09/19 12:53 Gram Stain - Final Trachea 12/09/19 12:57 LYNN Preparation - Final Other - Lung, Left 12/09/19 12:57 Gram Stain - Final Bronchial Alveolar Lavage - Lung, Left 12/09/19 12:53 LYNN Preparation - Final Other - Lung, Unspecified Imaging Impressions Last 24 hrs: Chest x-ray-this was completed at the [facility] today but images are not available for review-report is that her lungs are clear with no mass, infiltrate or effusion. Sepsis Event Note - Focused Exam Vital Signs: Vital Signs Temp Pulse Resp BP Pulse Ox 12/09/19 16:20 16 95 12/09/19 15:30 93 16 138/78 93 L 12/09/19 15:00 91 16 118/73 91 L 12/09/19 14:30 91 16 132/57 L 91 L 12/09/19 14:00 87 16 94/49 L 91 L 12/09/19 13:45 87 16 119/78 91 L 12/09/19 13:30 37.2 C 87 16 129/70 92 L 12/09/19 13:20 36.3 C 84 18 117/83 95 12/09/19 13:15 88 18 118/86 95 12/09/19 13:10 86 18 117/70 94 L 12/09/19 13:05 93 18 125/78 97 12/09/19 13:00 36.1 C 92 18 124/74 96 12/09/19 11:05 35.0 C L 81 16 133/76 95 Date Exam was Performed: 12/09/19 Time Exam was Performed: 17:07 *Q Meaningful Use (ADM) - VTE Risk Assess *Q Each Risk Factor Represents 1 Point: Age 41 - 59 years, Serious lung disease including pneumonia Total Score 1 Point Risk Factors: 2 Each Risk Factor Represents 2 Points: Malignancy (present or previous) Total Score 2 Point Risk Factors: 2 Each Risk Factor Represents 3 Points: None Total Score 3 Point Risk Factors: 0 Each Risk Factor Represents 5 Points: None Total Score 5 Point Risk Factors: 0 Venous Thromboembolism Risk Factor Score *Q: 4 - Problem List (1) Acute bronchitis SNOMED Code(s): 82487382 ICD Code: J20.9 - ACUTE BRONCHITIS, UNSPECIFIED Status: Acute Current Visit: Yes Qualifiers: Bronchitis organism: unspecified organism Qualified Code(s): J20.9 - Acute bronchitis, unspecified (2) Acute respiratory failure with hypoxia SNOMED Code(s): 71017634, 328188930 ICD Code: J96.01 - ACUTE RESPIRATORY FAILURE WITH HYPOXIA Status: Acute Current Visit: Yes (3) Pulmonary aspergillosis SNOMED Code(s): 2052085 ICD Code: B44.1 - OTHER PULMONARY ASPERGILLOSIS Status: Acute Current Visit: Yes Problem List Initiated/Reviewed/Updated: Yes Orders Last 24hrs: Active Orders 24 hr Category Date Time Status Patient Status [ADT] Routine ADT 12/09/19 16:48 Ordered Antiembolic Devices [RC] .Routine Care 12/09/19 16:48 Ordered Intake and Output [RC] QSHIFT Care 12/09/19 16:48 Ordered Notify Provider Vital Signs [RC] ASDIRECTED Care 12/09/19 16:48 Ordered Oxygen Therapy [RC] PRN Care 12/09/19 16:48 Ordered RT Aerosol Therapy [RC] ASDIRECTED Care 12/09/19 16:21 Active RT Aerosol Therapy [RC] ASDIRECTED Care 12/09/19 16:50 Ordered Up ad Bertha [RC] ASDIRECTED Care 12/09/19 16:48 Ordered VTE/DVT Education [RC] Per Unit Routine Care 12/09/19 16:48 Ordered Vital Signs [RC] Q4H Care 12/09/19 16:48 Ordered Regular Diet [DIET] Diet 12/09/19 Dinner Ordered ACID FAST SMEAR+CULTURE W/RFLX Routine Lab 12/09/19 12:53 Received ACID FAST SMEAR+CULTURE W/RFLX Routine Lab 12/09/19 12:56 Received ACID FAST SMEAR+CULTURE W/RFLX Routine Lab 12/09/19 12:57 Received BASIC METABOLIC PANEL,BMP [CHEM] Routine Lab 12/09/19 16:48 Ordered CBC WITH AUTO DIFF [HEME] Routine Lab 12/09/19 16:48 Ordered CRP [C-REACTIVE PROTEIN] [CHEM] Routine Lab 12/09/19 16:51 Ordered CULTURE FUNGAL [MYC] Stat Lab 12/09/19 12:53 Received CULTURE FUNGAL [MYC] Stat Lab 12/09/19 12:56 Received CULTURE FUNGAL [MYC] Stat Lab 12/09/19 12:57 Received CULTURE RESPIRATORY + SMEAR [RM] Routine Lab 12/09/19 12:53 Results CULTURE RESPIRATORY + SMEAR [RM] Routine Lab 12/09/19 12:57 Results CULTURE RESPIRATORY + SMEAR [RM] Stat Lab 12/09/19 12:56 Results PROCALCITONIN [CHEM] Routine Lab 12/09/19 16:51 Ordered Acetaminophen [Tylenol] Med 12/09/19 16:48 Ordered 650 mg PO Q4H PRN Albuterol [Proventil Neb Soln] Med 12/09/19 16:48 Ordered 2.5 mg NEB Q4H PRN Albuterol/Ipratropium [DuoNeb 3.0-0.5 MG/3 ML] Med 12/09/19 22:00 Ordered 3 ml NEB QID Aspirin [Halfprin] Med 12/10/19 09:00 Ordered 81 mg PO DAILY Benzonatate [Tessalon Perles] Med 12/09/19 16:50 Ordered 100 mg PO TID PRN Budesonide [Pulmicort] Med 12/09/19 21:00 Ordered 0.25 mg INH BID Dextrose 5%-Lactated Ringers 1,000 ml Med 12/09/19 12:00 Active IV ASDIRECTED Docusate Sodium/Sennosides [Senna Plus] Med 12/09/19 16:48 Ordered 1 tab PO BID PRN Doxycycline [Vibramycin] 100 mg Med 12/09/19 18:00 Ordered Sodium Chloride 0.9% [Normal Saline] 100 ml IV Q12H Estrogens, Conjugated [Premarin] Med 12/10/19 09:00 Ordered 0.625 mg PO DAILY Gabapentin [Neurontin] Med 12/10/19 09:00 Ordered 300 mg PO DAILY Ibuprofen [Motrin] Med 12/09/19 16:48 Ordered 600 mg PO Q6H PRN LORazepam [Ativan] Med 12/09/19 16:48 Ordered 0.5 mg IVPUSH Q4H PRN Levothyroxine Sodium [Synthroid] Med 12/10/19 07:30 Ordered 175 mcg PO ACBREAKFAST Magnesium Hydroxide [Milk of Magnesia] Med 12/09/19 16:48 Ordered 30 ml PO Q12H PRN Omeprazole [Omeprazole] Med 12/09/19 16:51 Ordered 40 mg PO DAILY PRN Ondansetron [Zofran ODT] Med 12/09/19 16:48 Ordered 4 mg PO Q6H PRN Ondansetron [Zofran] Med 12/09/19 16:48 Ordered 4 mg IV Q6H PRN Sodium Chloride 0.9% [Saline Flush] Med 12/09/19 16:48 Ordered 10 ml FLUSH ASDIRECTED PRN buPROPion HCl [Bupropion Xl] Med 12/10/19 09:00 Ordered 450 mg PO DAILY Saline Lock Insert [OM.PC] Urgent Oth 12/09/19 16:48 Ordered Sequential Compression Device [OM.PC] Routine Oth 12/09/19 16:48 Ordered Resuscitation Status Routine Resus Stat 12/09/19 16:48 Ordered Medication Orders Dextrose/Lactated Ringer's (Dextrose 5%-Lactated Ringers) 1,000 mls @ 100 mls/ hr IV ASDIRECTED ALFREDO Last Admin: 12/09/19 12:18 Dose: 100 mls/hr Assessment/Plan Comment:: ASSESSMENT AND PLAN - Acute bronchitis, suspected-complicated by acute respiratory failure with hypoxia. She has had an increase in symptoms recently and gram-positive cocci were noted on the bronchoscopy. She does have fevers but this is chronic. Laboratory studies are pending. -CBC with differential and CRP as well as procalcitonin -Doxycycline -Supplement oxygen as needed -Scheduled and as needed nebulizers -Continue home inhalers -Follow-up culture from bronchoscopy Chronic pulmonary aspergillosis-recently diagnosed but unable to afford treatment. -I encouraged her to continue working with the clinic folks to see if they can find some way to make the medication affordable -Follow-up with Dr. Moss Maintenance issues - - DVT prophylaxis -mechanical - GI prophylaxis -PPI - Nutrition -regular - Pantoja catheter -not indicated CODE STATUS -full code Admission justification -patient will be referred observation status to initiate antibiotics Disposition -I would anticipate discharge home after the hospital stay Primary care physician - Pat Monaco M.D. - Mortality Measure Prognosis:: Good
[2019-12-09] MEDS ORDERED: Doxycycline 100 MG in Sodium Chloride 0.9% 100 ML IV SCH (18:00)
[2019-12-09] MEDS: Doxycycline 100 MG in Sodium Chloride 0.9% 100 ML IV SCH (19:42)
[2019-12-09] MEDS ORDERED: Gabapentin 300 MG Cap PO SCH (21:00)
[2019-12-09] MEDS ORDERED: ESTROGENS CONJUGATED 0.625 MG PO SCH (21:00)
[2019-12-09] MEDS: Budesonide 0.25 MG/2 ML Neb Susp INH SCH (21:04)
[2019-12-09] MEDS: Albuterol/Ipratropium 3.0-0.5 MG/3 ML Neb Soln NEB SCH (21:15)
[2019-12-10] MEDS: Dextrose 5%-Lactated Ringers 1,000 ML IV SCH (06:09)
[2019-12-10] MEDS: Doxycycline 100 MG in Sodium Chloride 0.9% 100 ML IV SCH (06:10)
[2019-12-10] MEDS: Albuterol/Ipratropium 3.0-0.5 MG/3 ML Neb Soln NEB SCH (06:42)
[2019-12-10] MEDS ORDERED: Albuterol/Ipratropium 3.0-0.5 MG/3 ML Neb Soln NEB SCH (07:15)
[2019-12-10] MEDS: Budesonide 0.25 MG/2 ML Neb Susp INH SCH (07:20)
[2019-12-10] MEDS ORDERED: Non-Formulary Medication 1 Each (Levothyroxine Sodium [Synthroid] 175 MCG) PO SCH (07:30)
[2019-12-10] MEDS ORDERED: Levothyroxine 100 MCG, Levothyroxine 50 MCG, Levothyroxine 25 MCG PO SCH ×3 (07:30)
[2019-12-10] MEDS ORDERED: buPROPion 150 MG Tab.ER PO SCH (09:00)
[2019-12-10] MEDS ORDERED: Aspirin 81 MG Tab.EC PO SCH (09:00)
[2019-12-10] MEDS ORDERED: Gabapentin 300 MG Cap PO SCH (09:00)
--- NOTE | 2019-12-10 11:23 | PCM.DCSUM1 ---
Discharge Summary - Hospital Course Brief History: With recent diagnosis of pulmonary aspergillosis who was in the wound care physician unit for a bronchoscopy. After the procedure she was hypoxic and had significant difficulty with coughing so she was admitted for observation. Diagnosis: Stroke: No - Discharge Data Discharge Date: 12/10/19 Discharge Disposition: Home, Self-Care 01 Condition: Good - Referral to Home Health Primary Care Physician: Pat Funes PA-C - Discharge Diagnosis/Problem(s) (1) Acute bronchitis SNOMED Code(s): 15253067 ICD Code: J20.9 - ACUTE BRONCHITIS, UNSPECIFIED Status: Acute Qualifiers: Bronchitis organism: unspecified organism Qualified Code(s): J20.9 - Acute bronchitis, unspecified (2) Acute respiratory failure with hypoxia SNOMED Code(s): 60867975, 532869570 ICD Code: J96.01 - ACUTE RESPIRATORY FAILURE WITH HYPOXIA Status: Acute (3) Pulmonary aspergillosis SNOMED Code(s): 1901377 ICD Code: B44.1 - OTHER PULMONARY ASPERGILLOSIS Status: Acute - Patient Summary/Data Hospital Course: Taisha presented initially for an outpatient bronchoscopy to further evaluate her suspected pulmonary aspergillosis with concern that there may be an acute infection on top of this with a decline over the past 72 hours prior to presentation. The bronchoscopy was completed without incident and fluid for cultures was obtained. The Gram stain did show some gram-positive cocci but there was no evidence for fungal elements on the fungal stains. With her persistent hypoxia and wheezing she was admitted to the hospital for observation overnight. I did elect to start her on doxycycline with the suspicion that she has a bacterial bronchitis complicating her chronic Aspergillus issue. Overnight following admission there were no acute issues. Her cough is a fair amount better and she is feeling better. She has not had any fevers. White blood cell count was only mildly elevated at 12,000. She has not had any fevers overnight. Her procalcitonin level was low but I am still suspicious enough that there is a bacterial infection that I did elect to treat for 5 additional days with the doxycycline. If her cultures returned negative we can discontinue the antibiotics at that point. She is stable, doing well and safe for discharge home at this point. The other confounding issue is her pulmonary aspergillosis. This was recently diagnosed. Treatment with itraconazole was recommended but unfortunately the patient cannot afford this medication as it cost more than $1000 per month. She has been working with the insurance [employer] to try to find a cheaper way to get the medication but so far has been unsuccessful. We did start a prior authorization for voriconazole during the hospital stay to see if this will be covered or cheaper. This prior authorization is pending at the time of discharge. - Patient Instructions Diet: Regular Diet as Tolerated Activity: As Tolerated Showering/Bathing: May Shower Notify Provider of: Fever Other/Special Instructions: 1. You were in the hospital for management of acute bronchitis that caused low oxygen levels following your bronchoscopy. Your culture from the bronchoscopy is pending at this time but I would recommend antibiotic therapy at least until culture results are available. Please take doxycycline 100 mg twice daily for 5 days. Your first dose will be due tonight. You will be contacted if your culture results are abnormal or if the bacteria is resistant to the doxycycline. You should take this antibiotic with food to help reduce gastrointestinal symptoms. 2. Continue your other home medications as previously prescribed. 3. We did start a prior authorization to help obtain an antifungal medication. You will be contacted with these results as soon as they are available. 4. Follow up as scheduled or return sooner if symptoms worsen in the meantime - Discharge Plan *PRESCRIPTION DRUG MONITORING PROGRAM REVIEWED*: Not Applicable *COPY OF PRESCRIPTION DRUG MONITORING REPORT IN PATIENT JAG: Not Applicable Prescriptions/Med Rec: Doxycycline Hyclate 100 mg PO BID #10 capsule Ondansetron [Zofran ODT] 4 mg PO Q6H PRN #20 tab.dis PRN Reason: Nausea Home Medications: Home Meds Albuterol Sulfate 2.5 mg IH Q4HR 06/14/19 [History] Albuterol [Ventolin HFA] 1 puff .XX ASDIRECTED 06/14/19 [History] Budesonide [Pulmicort] 0.25 mg .XX BID #60 neb 06/14/19 [Rx] Estrogens, Conjugated [Premarin] 2 tab PO BID 06/14/19 [History] Levothyroxine Sodium [Synthroid] 175 mcg PO ACBREAKFAST 06/14/19 [History] buPROPion HCl [Bupropion Xl] 450 mg PO DAILY 06/14/19 [History] Acetaminophen [Tylenol] 325 mg PO DAILY 10/13/19 [History] Aspirin [Halfprin] 81 mg PO DAILY 10/13/19 [History] EPINEPHrine [Epinephrine] 0.3 mg IM ASDIRECTED 10/13/19 [History] Ibuprofen 800 mg PO DAILY 10/13/19 [History] Omeprazole 40 mg PO DAILY PRN 10/13/19 [History] Gabapentin [Neurontin] 300 mg PO BEDTIME 12/09/19 [History] Ipratropium [Atrovent] 1 inh INH DAILY 12/09/19 [History] Doxycycline Hyclate 100 mg PO BID #10 capsule 12/10/19 [Rx] Ondansetron [Zofran ODT] 4 mg PO Q6H PRN #20 tab.dis 12/10/19 [Rx] Oxygen Therapy Mode: Room Air Patient Handouts: Acute Bronchitis, Adult - Discharge Summary/Plan Comment DC Time >30 min.: No - Patient Data Vitals - Most Recent: Last Vital Signs Temp 35.7 C L 12/10/19 08:10 Pulse 72 12/10/19 08:10 Resp 16 12/10/19 08:10 BP 105/60 12/10/19 08:10 Pulse Ox 97 12/10/19 08:10 Weight - Most Recent: 70.987 kg I&O - Last 24 hours: Intake & Output 12/09/19 12/10/19 12/10/19 22:59 06:59 14:59 Intake Total 1090 1059 Balance 1090 1059 Lab Results - Last 24 hrs: Laboratory Results - last 24 hr 12/09/19 12/09/19 12/09/19 Range/Units 17:39 17:39 17:39 WBC 12.6 H (4.5-11.0) K/uL RBC 4.29 (3.30-5.50) M/uL Hgb 13.0 (12.0-15.0) g/dL Hct 39.5 (36.0-48.0) % MCV 92 (80-98) fL MCH 30 (27-31) pg MCHC 33 (32-36) % Plt Count 213 (150-400) K/uL Neut % (Auto) 77 H (36-66) % Lymph % (Auto) 14 L (24-44) % [place] % (Auto) 6 (2-6) % Eos % (Auto) 3 (2-4) % Baso % (Auto) 0 (0-1) % Sodium 142 (140-148) mmol/L Potassium 3.3 L (3.6-5.2) mmol/L Chloride 104 (100-108) mmol/L Carbon Dioxide 27 (21-32) mmol/L Anion Gap 14.3 H (5.0-14.0) mmol/L BUN 7 (7-18) mg/dL Creatinine 1.0 (0.6-1.0) mg/dL Est Cr Clr Drug Dosing 74.24 mL/min Estimated GFR (MDRD) 60 (>60) Glucose 101 (74-106) mg/dL Calcium 9.1 (8.5-10.1) mg/dL C-Reactive Protein 0.30 (0.0-0.3) mg/dL Procalcitonin ng/mL 12/09/19 Range/Units 17:39 WBC (4.5-11.0) K/uL RBC (3.30-5.50) M/uL Hgb (12.0-15.0) g/dL Hct (36.0-48.0) % MCV (80-98) fL MCH (27-31) pg MCHC (32-36) % Plt Count (150-400) K/uL Neut % (Auto) (36-66) % Lymph % (Auto) (24-44) % [place] % (Auto) (2-6) % Eos % (Auto) (2-4) % Baso % (Auto) (0-1) % Sodium (140-148) mmol/L Potassium (3.6-5.2) mmol/L Chloride (100-108) mmol/L Carbon Dioxide (21-32) mmol/L Anion Gap (5.0-14.0) mmol/L BUN (7-18) mg/dL Creatinine (0.6-1.0) mg/dL Est Cr Clr Drug Dosing mL/min Estimated GFR (MDRD) (>60) Glucose (74-106) mg/dL Calcium (8.5-10.1) mg/dL C-Reactive Protein (0.0-0.3) mg/dL Procalcitonin < 0.05 ng/mL SUNG Results - Last 24 hrs: Microbiology 12/09/19 12:56 LYNN Preparation - Final Other - Lung, Left 12/09/19 12:56 Gram Stain - Final Bronchial Alveolar Lavage - Left Upper Lobe 12/09/19 12:53 Gram Stain - Final Trachea 12/09/19 12:57 LYNN Preparation - Final Other - Lung, Left 12/09/19 12:57 Gram Stain - Final Bronchial Alveolar Lavage - Lung, Left 12/09/19 12:53 LYNN Preparation - Final Other - Lung, Unspecified Med Orders - Current: Current Medications Acetaminophen (Tylenol) 650 mg PO Q4H PRN PRN Reason: Pain (Mild 1-3)/fever Albuterol (Proventil Neb Soln) 2.5 mg NEB Q4H PRN PRN Reason: Shortness Of Breath/wheezing Albuterol/Ipratropium (Duoneb 3.0-0.5 Mg/3 Ml) 3 ml NEB QIDRT [facility] Last Admin: 12/10/19 07:20 Dose: 3 ml Aspirin (Halfprin) 81 mg PO DAILY [facility] Last Admin: 12/10/19 09:39 Dose: Not Given Budesonide (Pulmicort) 0.25 mg INH BIDRT [facility] Last Admin: 12/10/19 07:20 Dose: 0.25 mg Bupropion HCl (Wellbutrin Xl) 450 mg PO DAILY [facility] Last Admin: 12/10/19 09:39 Dose: Not Given Gabapentin (Neurontin) 300 mg PO BEDTIME [facility] Last Admin: 12/09/19 21:04 Dose: 300 mg Dextrose/Lactated Ringer's (Dextrose 5%-Lactated Ringers) 1,000 mls @ 100 mls/ hr IV ASDIRECTED [facility] Last Admin: 12/10/19 06:09 Dose: 100 mls/hr Doxycycline Hyclate 100 mg/ (Sodium Chloride) 100 mls @ 100 mls/hr IV Q12H [facility] Last Admin: 12/10/19 06:10 Dose: 100 mls/hr Ibuprofen (Motrin) 600 mg PO Q6H PRN PRN Reason: Pain/Fever Levothyroxine Sodium 100 mcg/Levothyroxine Sodium 50 mcg/Levothyroxine Sodium 25 mcg 175 mcg PO ACBREAKFAST [facility] Last Admin: 12/10/19 09:38 Dose: Not Given Lorazepam (Ativan) 0.5 mg IVPUSH Q4H PRN PRN Reason: Nausea/Vomiting Magnesium Hydroxide (Milk Of Magnesia) 30 ml PO Q12H PRN PRN Reason: Constipation Non-Formulary Medication (Estrogens, Conjugated [Premarin]) 0.625 mg PO BID [facility] Ondansetron HCl (Zofran Odt) 4 mg PO Q6H PRN PRN Reason: Nausea able to take PO Ondansetron HCl (Zofran) 4 mg IV Q6H PRN PRN Reason: Nausea/Vomiting Pantoprazole Sodium (Protonix) 40 mg PO ACBREAKFAST PRN PRN Reason: acid reflux Sodium Chloride (Saline Flush) 10 ml FLUSH ASDIRECTED PRN PRN Reason: Keep Vein Open Discontinued Medications Albuterol (Proventil Neb Soln) 2.5 mg NEB ONETIME ONE Stop: 12/09/19 16:22 Last Admin: 12/09/19 16:37 Dose: 2.5 mg Albuterol/Ipratropium (Duoneb 3.0-0.5 Mg/3 Ml) 3 ml NEB QID [facility] Last Admin: 12/10/19 06:42 Dose: Not Given Fentanyl (Sublimaze) Confirm Administered Dose 100 mcg .ROUTE .STK-MED ONE Stop: 12/09/19 12:43 Gabapentin (Neurontin) 300 mg PO DAILY [facility] Doxycycline Hyclate 100 mg/ (Sodium Chloride) 100 mls @ 100 mls/hr IV Q12H [facility] Lidocaine (Lta 360 Kit Top Soln) Confirm Administered Dose 4 ml .ROUTE .STK-MED ONE Stop: 12/09/19 12:44 Lidocaine HCl (Xylocaine 2% Viscous) Confirm Administered Dose 15 ml .ROUTE .STK -MED ONE Stop: 12/09/19 12:31 Last Admin: 12/09/19 13:32 Dose: 15 ml Lidocaine HCl (Xylocaine 4% Top Soln) Confirm Administered Dose 50 ml .ROUTE .STK-MED ONE Stop: 12/09/19 12:31 Last Admin: 12/09/19 13:32 Dose: 50 ml Midazolam HCl (Versed 1 Mg/Ml) Confirm Administered Dose 2 mg .ROUTE .STK-MED ONE Stop: 12/09/19 12:43 Estrogens, Conjugated (Premarin ) 0.625 Mg 0.625 mg PO DAILY [facility] Propofol (Diprivan 20 Ml) Confirm Administered Dose 200 mg .ROUTE .STK-MED ONE Stop: 03/27/20 12:42 - Exam Quality Assessment: Denies: Supplemental Oxygen General: Reports: Alert, Oriented, Cooperative, No Acute Distress Lungs: Reports: Normal Respiratory Effort. Denies: Wheezing Extremities: No Pedal Edema Psy/Mental Status: Reports: Alert, Normal Affect
--- NOTE | 2019-12-12 12:48 | OR ---
DATE OF PROCEDURE: 12/09/2019 SURGEON: Manish Call MD PREOPERATIVE DIAGNOSIS: Chronic cough with clinical suspicion of fungal infection. POSTOPERATIVE DIAGNOSIS: Chronic cough with clinical suspicion of fungal infection. PROCEDURES: Flexible bronchoscopy with: 1. Tracheobronchial washings (21640). 2. Bronchoalveolar lavage to left upper lobe (40041). ANESTHESIA: Topical plus IV sedation. INDICATIONS FOR PROCEDURE: This is a 44-year-old with complex medical history, presenting with ongoing chronic cough that has been present for roughly a year. There is some clinical suspicion of aspergillosis infection, based on serology and the patient's history. Plan is to proceed with flexible bronchoscopy with biopsies and/or samplings as indicated. Potential risks including bleeding, infection, aspiration of gastric contents were reviewed, and the patient wishes to proceed. DETAILS OF PROCEDURE: The patient was taken to the operating room and placed in a supine position. IV sedation was administered, after which the olericulture teacher passed some transtracheal lidocaine. Flexible bronchoscope was then passed through the left side of the nose. Visualized nasopharynx, hypopharynx, and larynx were unremarkable. The cord motion was symmetrical. As one passed into the tracheobronchial tree, a diffuse examination was undertaken. There were no abnormal secretions noted and no significant areas of obvious mucosal inflammation within the trachea or bronchial tree. The anterior segment of the left upper lobe bronchus was somewhat narrowed, and after obtaining initially diffuse tracheobronchial washings, bronchoalveolar lavage was obtained in that area with injection of 200 mL of saline. The return was collected in 2 containers and sent for a full microbiologic and cytologic evaluation. Of note, the return near the end of the effluent draining from that area was slightly blood-tinged indicating some probable tree of inflammation in that portion of the lung peripherally. At that point, no further problems were noted. The patient was taken to the recovery room in satisfactory condition. Post procedure, the patient was noted to be somewhat more hypoxic, maintaining O2 sats only in 89% to 90% range on room air, and after some discussion with Internal Medicine staff, both at the clinic and at the hospital, Dr. Monaco saw the patient, and she will be admitted for observation overnight. Of note, the initial stains showed no fungal elements, and Gram stain showed some marked gram-positive cocci. The patient was started on doxycycline per Dr. Monaco. Manish Call MD /[id number]
== END 2019-12-10 11:53 | disposition home or self-care (01) ==
LOC: JP.SDS 10:33 → JP.MS 16:48
PROVIDERS: ADMIT Internal Medicine; ATTEND Surgery
DX: J20.9 Acute bronchitis, unspecified (principal); J96.01 Acute respiratory failure with hypoxia; B44.1 Other pulmonary aspergillosis; B95.8 Unspecified staphylococcus as the cause of diseases classified elsewhere; E89.0 Postprocedural hypothyroidism; J45.909 Unspecified asthma, uncomplicated; Z79.82 Long term (current) use of aspirin; Z79.890 Hormone replacement therapy; Z95.0 Presence of cardiac pacemaker; Z79.51 Long term (current) use of inhaled steroids; Z88.0 Allergy status to penicillin; Z88.2 Allergy status to sulfonamides; Z88.5 Allergy status to narcotic agent; Z91.018 Allergy to other foods; Z88.8 Allergy status to other drugs, medicaments and biological substances
CPT/HCPCS: 31624; 36415; 80048; 84145; 85025; 86140; 87015; 87070; 87102; 87116; 87205; 87206; 87220; 88112; 94640; 96361; 96365; 96366; A9270; G0378; J2250; J2704; J3010; J3490; J7050; J7121; J7620-GY

== ENCOUNTER 2019-12-11 15:01 | Observation (INO) | payer MEDICAID, OTHER ==
[2019-12-11] MEDS ORDERED: Albuterol/Ipratropium 3.0-0.5 MG/3 ML Neb Soln NEB ONE (15:33)
[2019-12-11] MEDS ORDERED: methylPREDNISolone Sodium Succinate 125 MG/2 ML SDV IVPUSH ONE (15:52)
--- NOTE | 2019-12-11 15:53 | EDM.PDOC ---
ED HPI GENERAL MEDICAL PROBLEM - General Chief Complaint: Respiratory Problem Stated Complaint: TROUBLE BREATHING Time Seen by Provider: 12/11/19 15:35 Source of Information: Reports: Patient History Limitations: Reports: No Limitations - History of Present Illness INITIAL COMMENTS - FREE TEXT/NARRATIVE: 44-year-old female with chronic bronchitis symptoms, reactive airways, wheezing and cough who was just discharged from the hospital yesterday is now just as bad as when she was admitted 3 days ago. She is having difficulty breathing especially when she is active. No fevers or chills, but she cannot stop coughing and wheezing. She has had a long work-up including a recent CT scan, pulmonary function studies, and has had several courses of antibiotics without significant effect. I think she has also been seen at consulting hospitals such as [facility] and [facility]. Onset: Gradual Associated Symptoms: Reports: Cough, Loss of Appetite, Malaise, Shortness of Breath, Weakness. Denies: Fever/Chills, Headaches Throat Pain Score (Numeric/FACES): 0 - Related Data Allergies Allergy/AdvReac Type Severity Reaction Status Date / Time blue dye Allergy Severe Anaphylactic Verified 12/10/19 07:09 Shock flecainide Allergy Severe Anaphylactic Verified 12/10/19 07:09 Shock Penicillins Allergy Severe Anaphylactic Verified 12/10/19 07:09 Shock propafenone Allergy Severe Anaphylactic Verified 12/10/19 07:09 Shock Sulfa (Sulfonamide Allergy Severe Anaphylactic Verified 12/10/19 07:09 Antibiotics) Shock yellow dye Allergy Severe Anaphylactic Verified 12/10/19 07:09 Shock dofetilide Allergy Cannot Verified 12/09/19 11:07 Remember codeine AdvReac Vomiting Verified 12/09/19 11:07 Home Meds: Home Meds Albuterol Sulfate 2.5 mg IH Q4HR 06/14/19 [History] Albuterol [Ventolin HFA] 1 puff .XX ASDIRECTED 06/14/19 [History] Budesonide [Pulmicort] 0.25 mg .XX BID #60 neb 06/14/19 [Rx] Estrogens, Conjugated [Premarin] 2 tab PO BID 06/14/19 [History] Levothyroxine Sodium [Synthroid] 175 mcg PO ACBREAKFAST 06/14/19 [History] buPROPion HCl [Bupropion Xl] 450 mg PO DAILY 06/14/19 [History] Acetaminophen [Tylenol] 325 mg PO DAILY 10/13/19 [History] Aspirin [Halfprin] 81 mg PO DAILY 10/13/19 [History] EPINEPHrine [Epinephrine] 0.3 mg IM ASDIRECTED 10/13/19 [History] Ibuprofen 800 mg PO DAILY 10/13/19 [History] Omeprazole 40 mg PO DAILY PRN 10/13/19 [History] Gabapentin [Neurontin] 300 mg PO BEDTIME 12/09/19 [History] Ipratropium [Atrovent] 1 inh INH DAILY 12/09/19 [History] Ondansetron [Zofran ODT] 4 mg PO Q6H PRN #20 tab.dis 12/10/19 [Rx] methylPREDNISolone [Methylprednisolone] 16 mg PO DAILY #4 tablet 12/13/19 [Rx] Past Medical History HEENT History: Reports: None Cardiovascular History: Reports: Afib, [place], Pacemaker, Prior Cardiac Arrest Other Cardiovascular History: chronic v-fib. 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 Gastrointestinal History: Reports: Cholelithiasis Genitourinary History: Reports: UTI, Recurrent [employer] History: Reports: Musculoskeletal History: Reports: Fracture Neurological History: Reports: None Endocrine/Metabolic History: Reports: Other (See Below) Other Endocrine/Metabolic History: thyroid removed Oncologic (Cancer) History: Reports: Ovarian, Squamous Cell Carcinoma, Thyroid Dermatologic History: Reports: Other (See Below) 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 - Past Surgical History HEENT Surgical History: Reports: Adenoidectomy, Naso-Sinus Surgery, Tonsillectomy Cardiovascular Surgical History: Reports: Cardiac Ablation, Pacer, Other (See Below) Other Cardiovascular Surgeries/Procedures: cardiac surgery Respiratory Surgical History: Reports: None GI Surgical History: Reports: Appendectomy, Cholecystectomy Female Surgical History: Reports: Hysterectomy, Salpingo-Oophorectomy Endocrine Surgical History: Reports: Thyroidectomy Neurological Surgical History: Reports: Lumbar Spine, Spinal Fusion Musculoskeletal Surgical History: Reports: Other (See Below) Other Musculoskeletal Surgeries/Procedures:: foot surgery Oncologic Surgical History: Reports: None Dermatological Surgical History: Reports: Other (See Below) Social & Family History - Family History Cardiac: Reports: CAD Oncologic: Reports: Lung - Tobacco Use Smoking Status *Q: Never Smoker - Caffeine Use Caffeine Use: Reports: Soda Other Caffeine Use: 1 per day - Recreational Drug Use Recreational Drug Use: No ED ROS GENERAL - Review of Systems Review Of Systems: See Below Constitutional: Reports: Malaise. Denies: Fever, Chills HEENT: Denies: Ear Pain, Throat Pain Respiratory: Reports: Shortness of Breath, Wheezing, Cough Cardiovascular: Reports: Chest Pain (Chest is hurting from coughing so much) GI/Abdominal: Denies: Abdominal Pain, Nausea, Vomiting : Reports: No Symptoms Skin: Reports: No Symptoms Neurological: Reports: Dizziness, Weakness. Denies: Headache ED EXAM, GENERAL - Physical Exam Exam: See Below Exam Limited By: No Limitations General Appearance: Alert, No Apparent Distress, Other (Patient has a very persistent dry cough) Throat/Mouth: Normal Inspection Head: Atraumatic Neck: Non-Tender Respiratory/Chest: No Respiratory Distress, Wheezing (Significant expiratory wheezes diffusely, especially when coughing) Cardiovascular: Regular Rate, Rhythm GI/Abdominal: Non-Tender Extremities: No Pedal Edema Neurological: Alert, Oriented Psychiatric: Normal Affect, Normal Mood Skin Exam: Warm, Dry Course - Vital Signs Last Recorded V/S: Last Vital Signs Temp 98.5 F 12/13/19 10:52 Pulse 85 12/13/19 10:55 Resp 16 12/13/19 10:52 BP 109/56 L 12/13/19 10:52 Pulse Ox 96 12/13/19 10:52 - Orders/Labs/Meds Labs: Laboratory Tests 12/11/19 12/11/19 Range/Units 15:55 15:55 WBC 15.7 H (4.5-11.0) K/uL RBC 4.30 (3.30-5.50) M/uL Hgb 13.3 (12.0-15.0) g/dL Hct 39.3 (36.0-48.0) % MCV 91 (80-98) fL MCH 31 (27-31) pg MCHC 34 (32-36) % Plt Count 246 (150-400) K/uL Neut % (Auto) 80 H (36-66) % Lymph % (Auto) 10 L (24-44) % [place] % (Auto) 8 H (2-6) % Eos % (Auto) 2 (2-4) % Baso % (Auto) 0 (0-1) % Sodium 140 (140-148) mmol/L Potassium 4.0 (3.6-5.2) mmol/L Chloride 103 (100-108) mmol/L Carbon Dioxide 23 (21-32) mmol/L Anion Gap 13.9 (5.0-14.0) mmol/L BUN 9 (7-18) mg/dL Creatinine 1.2 H (0.6-1.0) mg/dL Est Cr Clr Drug Dosing 61.87 mL/min Estimated GFR (MDRD) 49 L (>60) Glucose 109 H (74-106) mg/dL Calcium 8.8 (8.5-10.1) mg/dL Total Bilirubin 1.1 H (0.2-1.0) mg/dL AST 19 (15-37) U/L ALT 27 (12-78) U/L Alkaline Phosphatase 61 (46-116) U/L Total Protein 6.7 (6.4-8.2) g/dL Albumin 3.7 (3.4-5.0) g/dL Globulin 3.0 (2.3-3.5) g/dL Albumin/Globulin Ratio 1.2 (1.2-2.2) Meds: Medications Discontinued Medications Generic Name Dose Route Start Last Admin Trade Name Freq PRN Reason Stop Dose Admin Acetaminophen 650 mg 12/11/19 17:37 Tylenol PO Q4H PRN Pain (Mild 1-3)/fever Albuterol/Ipratropium 3 ml 12/11/19 15:33 12/11/19 15:39 Duoneb 3.0-0.5 Mg/3 Ml NEB 12/11/19 15:34 3 ml ONETIME ONE Administration Aspirin 81 mg 12/12/19 09:00 12/13/19 09:19 Halfprin PO 81 mg DAILY [facility] Administration Bupropion HCl 450 mg 12/12/19 09:00 12/13/19 09:20 Wellbutrin Xl PO 450 mg DAILY [facility] Administration Estrogens Conjugated 1.25 mg 12/12/19 15:15 12/13/19 09:19 Premarin PO 1.25 mg BID [facility] Administration Ibuprofen 600 mg 12/11/19 17:37 Motrin PO Q6H PRN Pain/Fever Levalbuterol HCl 1.25 mg 12/11/19 21:00 12/13/19 10:55 Xopenex NEB 1.25 mg QIDRT [facility] Administration Levalbuterol HCl 1.25 mg 12/11/19 17:37 Xopenex NEB Q4H PRN shortness of breath/wheezing Levothyroxine Sodium 175 mcg 12/12/19 07:30 12/12/19 08:47 Synthroid PO Not Given ACBREAKFAST [facility] Levothyroxine Sodium 175 mcg 12/12/19 08:00 12/13/19 06:36 Synthroid PO Not Given ACBREAKFAST [facility] Levothyroxine Sodium 175 mcg 12/14/19 07:30 Synthroid PO ACBREAKFAST [facility] Lorazepam 0.5 mg 12/11/19 17:37 Ativan IVPUSH Q4H PRN Nausea/Vomiting Magnesium Hydroxide 30 ml 12/11/19 17:37 Milk Of Magnesia PO Q12H PRN Constipation Methylprednisolone Sodium Succinate 125 mg 12/11/19 15:52 12/11/19 15:57 Solu-Medrol IVPUSH 12/11/19 15:53 125 mg ONETIME ONE Administration Methylprednisolone Sodium Succinate 62.5 mg 12/12/19 00:00 12/12/19 08:31 Solu-Medrol IVPUSH 62.5 mg Q8H [facility] Administration Methylprednisolone Sodium Succinate 40 mg 12/12/19 16:00 12/13/19 07:44 Solu-Medrol IVPUSH 40 mg Q8H [facility] Administration Morphine Sulfate 2 mg 12/11/19 17:37 12/11/19 19:30 Morphine IVPUSH 2 mg Q2H PRN Administration severe cough Non-Formulary Medication 4 mg 12/11/19 17:37 Ondansetron [Zofran Odt] PO Q6H PRN Nausea Ondansetron HCl 4 mg 12/11/19 17:37 Zofran Odt PO Q6H PRN Nausea able to take PO Ondansetron HCl 4 mg 12/11/19 17:37 Zofran IV Q6H PRN Nausea/Vomiting Pantoprazole Sodium 40 mg 12/11/19 17:50 Protonix PO DAILY PRN ACID REFLUX - Re-Assessments/Exams Free Text/Narrative Re-Assessment/Exam: 03/29/20 16:44 Patient was given a DuoNeb and then sent for two-view chest x-ray. The DuoNeb I thought provided objective improvement with less wheezing but her O2 sats stayed 92 to 95% and the patient felt no subjective improvement. An IV was started and she was given 125 mg of IV Solu-Medrol, CBC and BMP were obtained. Her creatinine is 1.2, GFR 49, otherwise labs were all normal and consistent with 2 days ago. Phone consultation with the hospitalist service here and in [place] revealed no beneficial reason to transfer at this time, so Dr. Monaco agreed to admit the patient for IV steroids for the next 24 to 48 hours. Departure - Departure Time of Disposition: 17:35 Disposition: Admitted As Inpatient 65 Clinical Impression: Reactive airway disease with wheezing Qualifiers: Asthma severity: moderate Asthma persistence: persistent Asthma complication type: with acute exacerbation Qualified Code(s): J45.41 - Moderate persistent asthma with (acute) exacerbation - Discharge Information Sepsis Event Note - Evaluation Sepsis Screening Result: No Definite Risk - Focused Exam Date Exam was Performed: 12/13/19 Time Exam was Performed: 17:37
--- NOTE | 2019-12-11 17:06 | PCM.HP.2 ---
H&P History of Present Illness - General Date of Service: 12/11/19 Admit Problem/Dx: Admission Diagnosis/Problem Admission Diagnosis/Problem Reactive airway disease Source of Information: Patient, Provider History Limitations: Reports: No Limitations - History of Present Illness Initial Comments - Free Text/Narative: CC: I can't stop coughing HPI: Taisha presents to the emergency room today with persistent coughing and shortness of breath. She had a bronchoscopy on Thursday, 2 days ago and was in the hospital overnight secondary to hypoxia following the bronchoscopy. She felt well yesterday morning after discharge from the hospital and the initial portion of her time at home was unremarkable. Overnight she had increasing cough. She did not sleep much last night because she was coughing. She feels relatively comfortable at rest but gets short of breath with any exertion. She has noted wheezing at home. Albuterol inhalers or nebulizers do not help with her shortness of breath or wheezing. She has not had any fevers. She says that she does not feel much worse than usual but is not as good as she has been over the last few weeks. She feels weak and "wobbly". Appetite has been good and fluid intake has been good. No abdominal pain, nausea or diarrhea. She has not had any known exposures to allergens or chemicals that she is aware of. I did question her further about staying at a different residence in the last 6 to 12 months wondering if maybe she has some sort of trigger at home since she had a good night in the hospital 2 nights ago. She has not stayed anywhere other than in her home over the past few months. She is not sure if staying somewhere else would lead to improvement in her symptoms or not. Work-up in the emergency room revealed a clear chest x-ray and mild elevation in her white blood cell count. She is not hypoxic at this time but does have significant wheezing and is especially short of breath with activity. She will be admitted for observation with initiation of IV steroids. - Related Data Allergies/Adverse Reactions: Allergies Allergy/AdvReac Type Severity Reaction Status Date / Time blue dye Allergy Severe Anaphylactic Verified 12/10/19 07:09 Shock flecainide Allergy Severe Anaphylactic Verified 12/10/19 07:09 Shock Penicillins Allergy Severe Anaphylactic Verified 12/10/19 07:09 Shock propafenone Allergy Severe Anaphylactic Verified 12/10/19 07:09 Shock Sulfa (Sulfonamide Allergy Severe Anaphylactic Verified 12/10/19 07:09 Antibiotics) Shock yellow dye Allergy Severe Anaphylactic Verified 12/10/19 07:09 Shock dofetilide Allergy Cannot Verified 12/09/19 11:07 Remember codeine AdvReac Vomiting Verified 12/09/19 11:07 Home Medications: Home Meds Albuterol Sulfate 2.5 mg IH Q4HR 06/14/19 [History] Albuterol [Ventolin HFA] 1 puff .XX ASDIRECTED 06/14/19 [History] Budesonide [Pulmicort] 0.25 mg .XX BID #60 neb 06/14/19 [Rx] Estrogens, Conjugated [Premarin] 2 tab PO BID 06/14/19 [History] Levothyroxine Sodium [Synthroid] 175 mcg PO ACBREAKFAST 06/14/19 [History] buPROPion HCl [Bupropion Xl] 450 mg PO DAILY 06/14/19 [History] Acetaminophen [Tylenol] 325 mg PO DAILY 10/13/19 [History] Aspirin [Halfprin] 81 mg PO DAILY 10/13/19 [History] EPINEPHrine [Epinephrine] 0.3 mg IM ASDIRECTED 10/13/19 [History] Ibuprofen 800 mg PO DAILY 10/13/19 [History] Omeprazole 40 mg PO DAILY PRN 10/13/19 [History] Gabapentin [Neurontin] 300 mg PO BEDTIME 12/09/19 [History] Ipratropium [Atrovent] 1 inh INH DAILY 12/09/19 [History] Doxycycline Hyclate 100 mg PO BID #10 capsule 12/10/19 [Rx] Ondansetron [Zofran ODT] 4 mg PO Q6H PRN #20 tab.dis 12/10/19 [Rx] Past Medical History HEENT History: Reports: None Cardiovascular History: Reports: Afib, CO, Pacemaker, Prior Cardiac Arrest Other Cardiovascular History: chronic v-fib. 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 Gastrointestinal History: Reports: Cholelithiasis Genitourinary History: Reports: UTI, Recurrent DEVELOPMENT EDUCATOR History: Reports: Musculoskeletal History: Reports: Fracture Neurological History: Reports: None Endocrine/Metabolic History: Reports: Other (See Below) Other Endocrine/Metabolic History: thyroid removed Oncologic (Cancer) History: Reports: Ovarian, Squamous Cell Carcinoma, Thyroid Dermatologic History: Reports: Other (See Below) 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 - Past Surgical History HEENT Surgical History: Reports: Adenoidectomy, Naso-Sinus Surgery, Tonsillectomy Cardiovascular Surgical History: Reports: Cardiac Ablation, Pacer, Other (See Below) Other Cardiovascular Surgeries/Procedures: cardiac surgery Respiratory Surgical History: Reports: None GI Surgical History: Reports: Appendectomy, Cholecystectomy Female Surgical History: Reports: Hysterectomy, Salpingo-Oophorectomy Endocrine Surgical History: Reports: Thyroidectomy Neurological Surgical History: Reports: Lumbar Spine, Spinal Fusion Musculoskeletal Surgical History: Reports: Other (See Below) Other Musculoskeletal Surgeries/Procedures:: foot surgery Oncologic Surgical History: Reports: None Dermatological Surgical History: Reports: Other (See Below) Social & Family History - Family History Cardiac: Reports: CAD Oncologic: Reports: Lung - Tobacco Use Smoking Status *Q: Never Smoker - Caffeine Use Caffeine Use: Reports: Soda Other Caffeine Use: 1 per day - Recreational Drug Use Recreational Drug Use: No H&P Review of Systems - Review of Systems: Review Of Systems: See Below Free Text/Narrative: A complete 12 point review of systems was obtained. Pertinent positives and negatives are noted in the history of present illness. All other systems were reviewed and were negative except as noted. Exam - Exam Exam: See Below - Vital Signs Vital Signs: Last Vital Signs Temp 35.7 C L 12/11/19 15:09 Pulse 56 L 12/11/19 16:18 Resp 20 12/11/19 16:18 BP 130/69 12/11/19 16:18 Pulse Ox 92 L 12/11/19 16:18 Weight: 69.853 kg - Exam Quality Assessment: No: Supplemental Oxygen General: Alert, Oriented, Cooperative, Mild Distress HEENT: Conjunctiva Clear. No: Mucosa Moist & [place] (dry), Scleral Icterus Neck: Supple, Trachea Midline. No: Lymphadenopathy Lungs: Normal Respiratory Effort, Wheezing (moderate diffuse exp wheezing ). No : Crackles Cardiovascular: Regular Rate, Regular Rhythm, Systolic Murmur GI/Abdominal Exam: Soft, No Distention Back Exam: Normal Inspection, Full Range of Motion Extremities: No Pedal Edema. No: Increased Warmth Peripheral Pulses: 2+: Dorsalis Pedis (L), Dorsalis Pedis (R) Skin: Warm, Dry Neuro Extensive - Mental Status: Alert, Oriented x3, Nl Response to Commands Neuro Extensive - Motor, Sensory, Reflexes: No: Dysarthria, Abnormal Motor, Tremor Psychiatric: Alert, Normal Affect - Patient Data Lab Results Last 24 hrs: Laboratory Results - last 24 hr 12/11/19 12/11/19 Range/Units 15:55 15:55 WBC 15.7 H (4.5-11.0) K/uL RBC 4.30 (3.30-5.50) M/uL Hgb 13.3 (12.0-15.0) g/dL Hct 39.3 (36.0-48.0) % MCV 91 (80-98) fL MCH 31 (27-31) pg MCHC 34 (32-36) % Plt Count 246 (150-400) K/uL Neut % (Auto) 80 H (36-66) % Lymph % (Auto) 10 L (24-44) % [place] % (Auto) 8 H (2-6) % Eos % (Auto) 2 (2-4) % Baso % (Auto) 0 (0-1) % Sodium 140 (140-148) mmol/L Potassium 4.0 (3.6-5.2) mmol/L Chloride 103 (100-108) mmol/L Carbon Dioxide 23 (21-32) mmol/L Anion Gap 13.9 (5.0-14.0) mmol/L BUN 9 (7-18) mg/dL Creatinine 1.2 H (0.6-1.0) mg/dL Est Cr Clr Drug Dosing 61.87 mL/min Estimated GFR (MDRD) 49 L (>60) Glucose 109 H (74-106) mg/dL Calcium 8.8 (8.5-10.1) mg/dL Total Bilirubin 1.1 H (0.2-1.0) mg/dL AST 19 (15-37) U/L ALT 27 (12-78) U/L Alkaline Phosphatase 61 (46-116) U/L Total Protein 6.7 (6.4-8.2) g/dL Albumin 3.7 (3.4-5.0) g/dL Globulin 3.0 (2.3-3.5) g/dL Albumin/Globulin Ratio 1.2 (1.2-2.2) Result Diagrams: 12/11/19 15:55 12/11/19 15:55 Imaging Impressions Last 24 hrs: CXR-images personally reviewed-lungs clear with mass, infiltrate or effusion. Heart size is normal. Dual chamber pacer in place. Sepsis Event Note - Evaluation Sepsis Screening Result: No Definite Risk - Focused Exam Vital Signs: Vital Signs Temp Pulse Resp BP Pulse Ox 12/11/19 16:18 56 L 20 130/69 92 L 12/11/19 15:30 59 L 20 138/69 93 L 12/11/19 15:09 35.7 C L 59 L 20 136/47 L 94 L 12/11/19 15:06 35.7 C L 59 L 20 136/47 L 94 L Date Exam was Performed: 12/11/19 Time Exam was Performed: 17:14 *Q Meaningful Use (ADM) - VTE Risk Assess *Q Each Risk Factor Represents 1 Point: Age 41 - 59 years, Abnormal Pulmonary Function (COPD) Total Score 1 Point Risk Factors: 2 Each Risk Factor Represents 2 Points: Malignancy (present or previous) Total Score 2 Point Risk Factors: 2 Each Risk Factor Represents 3 Points: None Total Score 3 Point Risk Factors: 0 Each Risk Factor Represents 5 Points: None Total Score 5 Point Risk Factors: 0 Venous Thromboembolism Risk Factor Score *Q: 4 - Problem List (1) Reactive airway disease with wheezing SNOMED Code(s): 821236988618, 897250178264 ICD Code: J45.909 - UNSPECIFIED ASTHMA, UNCOMPLICATED Status: Acute Current Visit: Yes Qualifiers: Asthma severity: moderate Asthma persistence: persistent Asthma complication type: with acute exacerbation Qualified Code(s): J45.41 - Moderate persistent asthma with (acute) exacerbation (2) Pulmonary aspergillosis SNOMED Code(s): 5012351 ICD Code: B44.1 - OTHER PULMONARY ASPERGILLOSIS Status: Acute Current Visit: No Problem List Initiated/Reviewed/Updated: Yes Orders Last 24hrs: Active Orders 24 hr Category Date Time Status Patient Status Manage Transfer [TRANSFER] Routine ADT 12/11/19 16:57 Ordered RT Aerosol Therapy [RC] ASDIRECTED Care 12/11/19 15:33 Active Chest 2V [CR] Routine Exams 12/11/19 15:51 Taken Resuscitation Status Routine Resus Stat 12/11/19 16:59 Ordered Assessment/Plan Comment:: ASSESSMENT AND PLAN - Reactive airway disease-significant wheezing and increased work of breathing noted. She does have a mild leukocytosis but no fever or obvious evidence for acute infection. She did have a recent bronchoscopy with a normal bacterial culture. The fungal portion of the culture still pending. No fevers. No obvious exposures. Unclear if this is related to her suspected pulmonary aspergillosis or if there is a different etiology causing her chronic cough. She has had an extensive work-up including pulmonary function testing, CT scans and has seen several different automobile technician in consultation. Recent serologic testing suggested a pulmonary aspergillosis and treatment with itraconazole was recommended but she has not started this because of cost. -IV steroids overnight -Trial of leave albuterol nebulizers -Supplement oxygen if needed -Recheck inflammatory markers in the morning -Consider trial of spending several nights at a different house to see if there is some sort of allergen/irritant at her home Suspected pulmonary aspergillosis-recent serological testing was positive for aspergillosis but negative for other etiologies. Bronchoscopy did not reveal any obvious lesions. CT scan 2 weeks ago did not show any concerning findings. She is unable to afford her medication at this time. She is requesting that we place a PICC line and administer IV antifungals. Prior authorization for oral voriconazole was started this weekend. -Follow-up prior authorization for voriconazole -Consider infectious disease consultation Maintenance issues - - DVT prophylaxis -mechanical - GI prophylaxis -PPI - Nutrition -regular diet - Pantoja catheter -not indicated CODE STATUS -full code Admission justification -patient will be referred observation status for initiation of treatment for reactive airway disease Disposition -I would anticipate discharge home after the hospital stay Primary care physician -TINO Freiats M.D. - Mortality Measure Prognosis:: Good
[2019-12-11] MEDS ORDERED: Magnesium Hydroxide 400 MG/5 ML Susp 30 ML Cup PO PRN (17:37)
[2019-12-11] MEDS ORDERED: Levalbuterol HCl 1.25 MG/3 ML Neb NEB PRN (17:37)
[2019-12-11] MEDS ORDERED: LORazepam 2 MG/ML SDV IVPUSH PRN (17:37)
[2019-12-11] MEDS ORDERED: Ondansetron 4 MG Tab.DIS PO PRN (17:37)
[2019-12-11] MEDS ORDERED: Acetaminophen 325 MG Tab PO PRN (17:37)
[2019-12-11] MEDS ORDERED: Non-Formulary Medication 1 Each (Ondansetron [Zofran Odt] 4 MG) PO PRN (17:37)
[2019-12-11] MEDS ORDERED: Ibuprofen 600 MG Tab PO PRN (17:37)
[2019-12-11] MEDS ORDERED: Morphine 2 MG/ML Syringe IVPUSH PRN (17:37)
[2019-12-11] MEDS ORDERED: Ondansetron 4 MG/2 ML SDV IV PRN (17:37)
[2019-12-11] MEDS ORDERED: Pantoprazole 40 MG Tab.CR PO PRN (17:50)
[2019-12-11] MEDS: Levalbuterol HCl 1.25 MG/3 ML Neb NEB SCH (20:52)
[2019-12-11] MEDS: methylPREDNISolone Sodium Succinate 125 MG/2 ML SDV IVPUSH SCH (23:20)
[2019-12-12] MEDS: Levalbuterol HCl 1.25 MG/3 ML Neb NEB SCH ×4 (07:02→21:09)
[2019-12-12] MEDS ORDERED: Levothyroxine 50 MCG Tab PO SCH (07:30)
[2019-12-12] MEDS: Levothyroxine 50 MCG Tab PO SCH (08:23)
[2019-12-12] MEDS: methylPREDNISolone Sodium Succinate 125 MG/2 ML SDV IVPUSH SCH (08:31)
[2019-12-12] MEDS: buPROPion 150 MG Tab.ER PO SCH (08:39)
[2019-12-12] MEDS: Aspirin 81 MG Tab.EC PO SCH (08:39)
--- NOTE | 2019-12-12 10:46 | CR ---
CHEST: 2 view CLINICAL HISTORY:Dyspnea COMPARISON:CT chest 11/28/2019 FINDINGS: Heart size and pulmonary vascularity are normal. Patient has a permanent cardiac pacer. There is an implanted monitor in the lower mediastinum. No infiltrate or effusion is seen. There is a subcentimeter nodular density on the right lower lateral lung field. This is felt to be a nipple shadow. IMPRESSION: No acute cardiopulmonary process From a cardiac pacer. Nodular density in the right lower lateral lung field is likely a nipple shadow. The repeat PA chest with nipple markers recommended on a nonacute basis.
--- NOTE | 2019-12-12 15:36 | PCM.PN ---
- General Info Date of Service: 12/12/19 Subjective Update: Ms. Woods is shown some improvement since admission yesterday with less shortness of breath. She continues to experience a dry nonproductive cough and intermittently does still get short of breath. Vital signs have remained stable and she has been afebrile. White blood cell count modestly elevated on admission, now has normalized. Functional Status: Reports: Tolerating Diet, Ambulating, Urinating - Review of Systems General: Reports: Weakness. Denies: Fever, Chills Pulmonary: Reports: Shortness of Breath, Cough, Sputum, Wheezing. Denies: Pleuritic Chest Pain, Hemoptysis Cardiovascular: Reports: Dyspnea on Exertion, Lightheadedness. Denies: Chest Pain, Palpitations, Orthopnea, PND, Edema Gastrointestinal: Reports: No Symptoms - Patient Data Vitals - Most Recent: Last Vital Signs Temp 96.5 F L 12/12/19 14:43 Pulse 102 H 12/12/19 14:43 Resp 18 12/12/19 14:43 BP 124/86 12/12/19 14:43 Pulse Ox 96 12/12/19 14:43 Weight - Most Recent: 153 lb 14.122 oz I&O - Last 24 Hours: Intake & Output 12/12/19 12/12/19 12/12/19 06:59 14:59 22:59 Intake Total 120 200 Balance 120 200 Lab Results Last 24 Hours: Laboratory Results - last 24 hr 12/11/19 12/11/19 12/12/19 Range/Units 15:55 15:55 05:10 WBC 15.7 H (4.5-11.0) K/uL RBC 4.30 (3.30-5.50) M/uL Hgb 13.3 (12.0-15.0) g/dL Hct 39.3 (36.0-48.0) % MCV 91 (80-98) fL MCH 31 (27-31) pg MCHC 34 (32-36) % Plt Count 246 (150-400) K/uL Neut % (Auto) 80 H (36-66) % Lymph % (Auto) 10 L (24-44) % [place] % (Auto) 8 H (2-6) % Eos % (Auto) 2 (2-4) % Baso % (Auto) 0 (0-1) % ESR (0-25) mm/hr Sodium 140 139 L (140-148) mmol/L Potassium 4.0 4.3 (3.6-5.2) mmol/L Chloride 103 103 (100-108) mmol/L Carbon Dioxide 23 25 (21-32) mmol/L Anion Gap 13.9 15.3 H (5.0-14.0) mmol/L BUN 9 10 (7-18) mg/dL Creatinine 1.2 H 1.1 H (0.6-1.0) mg/dL Est Cr Clr Drug Dosing 61.87 67.25 mL/min Estimated GFR (MDRD) 49 L 54 L (>60) Glucose 109 H 197 H (74-106) mg/dL Calcium 8.8 8.9 (8.5-10.1) mg/dL Total Bilirubin 1.1 H (0.2-1.0) mg/dL AST 19 (15-37) U/L ALT 27 (12-78) U/L Alkaline Phosphatase 61 (46-116) U/L C-Reactive Protein 1.81 H (0.0-0.3) mg/dL Total Protein 6.7 (6.4-8.2) g/dL Albumin 3.7 (3.4-5.0) g/dL Globulin 3.0 (2.3-3.5) g/dL Albumin/Globulin Ratio 1.2 (1.2-2.2) 12/12/19 Range/Units 05:11 WBC 9.5 (4.5-11.0) K/uL RBC 4.19 (3.30-5.50) M/uL Hgb 12.7 (12.0-15.0) g/dL Hct 38.5 (36.0-48.0) % MCV 92 (80-98) fL MCH 30 (27-31) pg MCHC 33 (32-36) % Plt Count 234 (150-400) K/uL Neut % (Auto) (36-66) % Lymph % (Auto) (24-44) % [place] % (Auto) (2-6) % Eos % (Auto) (2-4) % Baso % (Auto) (0-1) % ESR 10 (0-25) mm/hr Sodium (140-148) mmol/L Potassium (3.6-5.2) mmol/L Chloride (100-108) mmol/L Carbon Dioxide (21-32) mmol/L Anion Gap (5.0-14.0) mmol/L BUN (7-18) mg/dL Creatinine (0.6-1.0) mg/dL Est Cr Clr Drug Dosing mL/min Estimated GFR (MDRD) (>60) Glucose (74-106) mg/dL Calcium (8.5-10.1) mg/dL Total Bilirubin (0.2-1.0) mg/dL AST (15-37) U/L ALT (12-78) U/L Alkaline Phosphatase (46-116) U/L C-Reactive Protein (0.0-0.3) mg/dL Total Protein (6.4-8.2) g/dL Albumin (3.4-5.0) g/dL Globulin (2.3-3.5) g/dL Albumin/Globulin Ratio (1.2-2.2) Med Orders - Current: Current Medications Acetaminophen (Tylenol) 650 mg PO Q4H PRN PRN Reason: Pain (Mild 1-3)/fever Aspirin (Halfprin) 81 mg PO DAILY [facility] Last Admin: 12/12/19 08:39 Dose: 81 mg Bupropion HCl (Wellbutrin Xl) 450 mg PO DAILY [facility] Last Admin: 12/12/19 08:39 Dose: 450 mg Estrogens Conjugated (Premarin) 1.25 mg PO BID [facility] Ibuprofen (Motrin) 600 mg PO Q6H PRN PRN Reason: Pain/Fever Levalbuterol HCl (Xopenex) 1.25 mg NEB QIDRT [facility] Last Admin: 12/12/19 14:41 Dose: 1.25 mg Levalbuterol HCl (Xopenex) 1.25 mg NEB Q4H PRN PRN Reason: shortness of breath/wheezing Levothyroxine Sodium (Synthroid) 175 mcg PO ACBREAKFAST [facility] Last Admin: 12/12/19 08:23 Dose: Not Given Lorazepam (Ativan) 0.5 mg IVPUSH Q4H PRN PRN Reason: Nausea/Vomiting Magnesium Hydroxide (Milk Of Magnesia) 30 ml PO Q12H PRN PRN Reason: Constipation Methylprednisolone Sodium Succinate (Solu-Medrol) 40 mg IVPUSH Q8H [facility] Morphine Sulfate (Morphine) 2 mg IVPUSH Q2H PRN PRN Reason: severe cough Last Admin: 12/11/19 19:30 Dose: 2 mg Ondansetron HCl (Zofran Odt) 4 mg PO Q6H PRN PRN Reason: Nausea able to take PO Ondansetron HCl (Zofran) 4 mg IV Q6H PRN PRN Reason: Nausea/Vomiting Pantoprazole Sodium (Protonix) 40 mg PO DAILY PRN PRN Reason: ACID REFLUX Discontinued Medications Albuterol/Ipratropium (Duoneb 3.0-0.5 Mg/3 Ml) 3 ml NEB ONETIME ONE Stop: 12/11/19 15:34 Last Admin: 12/11/19 15:39 Dose: 3 ml Levothyroxine Sodium (Synthroid) 175 mcg PO ACBREAKFAST [facility] Last Admin: 12/12/19 08:47 Dose: Not Given Methylprednisolone Sodium Succinate (Solu-Medrol) 125 mg IVPUSH ONETIME ONE Stop: 12/11/19 15:53 Last Admin: 12/11/19 15:57 Dose: 125 mg Methylprednisolone Sodium Succinate (Solu-Medrol) 62.5 mg IVPUSH Q8H [facility] Last Admin: 12/12/19 08:31 Dose: 62.5 mg Non-Formulary Medication (Ondansetron [Zofran Odt]) 4 mg PO Q6H PRN PRN Reason: Nausea - Exam Quality Assessment: Supplemental Oxygen, DVT Prophylaxis General: Alert, Oriented, Cooperative, Mild Distress Lungs: Normal Respiratory Effort, Decreased Breath Sounds. No: Rales, Rhonchi, Rub, Wheezing Cardiovascular: Regular Rate, Regular Rhythm, No Murmurs GI/Abdominal Exam: Soft, Non-Tender, No Organomegaly, No Distention Extremities: Non-Tender, No Pedal Edema Sepsis Event Note - Evaluation Sepsis Screening Result: No Definite Risk - Focused Exam Vital Signs: Vital Signs Temp Pulse Resp BP Pulse Ox 12/12/19 14:43 96.5 F L 102 H 18 124/86 96 12/12/19 10:54 97.8 F 79 18 112/62 98 12/12/19 10:39 86 12/12/19 07:02 78 12/12/19 07:00 96.5 F L 84 18 124/68 99 Date Exam was Performed: 12/12/19 Time Exam was Performed: 15:33 - Problem List Review Problem List Initiated/Reviewed/Updated: Yes - My Orders Last 24 Hours: My Active Orders 12/12/19 15:32 methylPREDNISolone Sod Succ [Solu-MEDROL] 40 mg IVPUSH Q8H 12/13/19 05:00 BASIC METABOLIC PANEL,BMP [CHEM] Timed - Plan Plan:: ASSESSMENT AND PLAN Reactive airway disease-improvement from admission with less shortness of breath , persistent dry cough -Solu-Medrol 40 mg IV every 8 hours -Trial of leave albuterol nebulizers -Supplement oxygen if needed Suspected pulmonary aspergillosis-recent serological testing was positive for aspergillosis but negative for other etiologies. Bronchoscopy did not reveal any obvious lesions. CT scan 2 weeks ago did not show any concerning findings. She is unable to afford her medication at this time. She is requesting that we place a PICC line and administer IV antifungals. Prior authorization for oral voriconazole was started this weekend. -Follow-up prior authorization for voriconazole -Consider infectious disease consultation Maintenance issues - - DVT prophylaxis -mechanical - GI prophylaxis -PPI - Nutrition -regular diet - Pantoja catheter -not indicated CODE STATUS -full code Admission justification -patient will be referred observation status for initiation of treatment for reactive airway disease Disposition -I would anticipate discharge home after the hospital stay Primary care physician -TINO Freitas
[2019-12-12] MEDS: methylPREDNISolone Sodium Succinate 40 MG/1 ML SDV IVPUSH SCH (16:33)
[2019-12-13] MEDS: methylPREDNISolone Sodium Succinate 40 MG/1 ML SDV IVPUSH SCH ×2 (00:33→07:44)
[2019-12-13] MEDS: Levothyroxine 50 MCG Tab PO SCH ×2 (06:24→06:36)
[2019-12-13] MEDS: Levalbuterol HCl 1.25 MG/3 ML Neb NEB SCH ×2 (07:02→10:55)
[2019-12-13] MEDS: Aspirin 81 MG Tab.EC PO SCH (09:19)
[2019-12-13] MEDS: buPROPion 150 MG Tab.ER PO SCH (09:20)
--- NOTE | 2019-12-13 12:43 | PCM.DCSUM1 ---
Discharge Summary - Hospital Course Brief History: Ms. Woods is a 44-year-old woman who was admitted through the emergency department with shortness of breath and cough secondary to asthma exacerbation. - Discharge Data Discharge Date: 12/13/19 Discharge Disposition: Home, Self-Care 01 Condition: Fair - Referral to Home Health Primary Care Physician: PCP None - Discharge Diagnosis/Problem(s) (1) Acute respiratory failure with hypoxia SNOMED Code(s): 17338883, [id number] ICD Code: J96.01 - ACUTE RESPIRATORY FAILURE WITH HYPOXIA Status: Acute Current Visit: No (2) Reactive airway disease with wheezing SNOMED Code(s): 815875190553, 283398153619 ICD Code: J45.909 - UNSPECIFIED ASTHMA, UNCOMPLICATED Status: Acute Current Visit: Yes Qualifiers: Asthma severity: moderate Asthma persistence: persistent Asthma complication type: with acute exacerbation Qualified Code(s): J45.41 - Moderate persistent asthma with (acute) exacerbation - Patient Summary/Data Hospital Course: Ms. Woods presented to the emergency room with persistent coughing and shortness of breath. She had a bronchoscopy on Thursday, 2 days ago and was in the hospital overnight secondary to hypoxia following the bronchoscopy. She felt well yesterday morning after discharge from the hospital and the initial portion of her time at home was unremarkable. Overnight she had increasing cough. She did not sleep much last night because she was coughing. She feels relatively comfortable at rest but gets short of breath with any exertion. She has noted wheezing at home. Albuterol inhalers or nebulizers do not help with her shortness of breath or wheezing. She has not had any fevers. She says that she does not feel much worse than usual but is not as good as she has been over the last few weeks. She feels weak and "wobbly". Appetite has been good and fluid intake has been good. No abdominal pain, nausea or diarrhea. She has not had any known exposures to allergens or chemicals that she is aware of. I did question her further about staying at a different residence in the last 6 to 12 months wondering if maybe she has some sort of trigger at home since she had a good night in the hospital 2 nights ago. She has not stayed anywhere other than in her home over the past few months. She is not sure if staying somewhere else would lead to improvement in her symptoms or not. Work-up in the emergency room revealed a clear chest x-ray and mild elevation in her white blood cell count. She is not hypoxic, but does have significant wheezing and is especially short of breath with activity. She will be admitted for observation with initiation of IV steroids. Her the next 2 days of her hospital stay respiratory status improved. At the time of discharge she had been able to be up and active without supplemental oxygen, although she continued to experience a dry nonproductive cough. She will be transitioned to an additional 4 days of oral methyl prednisolone. Follow-up appointment has been scheduled with Dr. Moss for December 14. She has had a recent positive serology for aspergillosis and will follow-up with Dr. Moss concerning that and possible treatment. Activity will be as tolerated and she will resume her usual diet. - Patient Instructions Diet: Usual Diet as Tolerated Activity: As Tolerated - Discharge Plan *PRESCRIPTION DRUG MONITORING PROGRAM REVIEWED*: Not Applicable *COPY OF PRESCRIPTION DRUG MONITORING REPORT IN PATIENT JAG: Not Applicable Prescriptions/Med Rec: methylPREDNISolone [Methylprednisolone] 16 mg PO DAILY #4 tablet Home Medications: Home Meds Albuterol Sulfate 2.5 mg IH Q4HR 06/14/19 [History] Albuterol [Ventolin HFA] 1 puff .XX ASDIRECTED 06/14/19 [History] Budesonide [Pulmicort] 0.25 mg .XX BID #60 neb 06/14/19 [Rx] Estrogens, Conjugated [Premarin] 2 tab PO BID 06/14/19 [History] Levothyroxine Sodium [Synthroid] 175 mcg PO ACBREAKFAST 06/14/19 [History] buPROPion HCl [Bupropion Xl] 450 mg PO DAILY 06/14/19 [History] Acetaminophen [Tylenol] 325 mg PO DAILY 10/13/19 [History] Aspirin [Halfprin] 81 mg PO DAILY 10/13/19 [History] EPINEPHrine [Epinephrine] 0.3 mg IM ASDIRECTED 10/13/19 [History] Ibuprofen 800 mg PO DAILY 10/13/19 [History] Omeprazole 40 mg PO DAILY PRN 10/13/19 [History] Gabapentin [Neurontin] 300 mg PO BEDTIME 12/09/19 [History] Ipratropium [Atrovent] 1 inh INH DAILY 12/09/19 [History] Ondansetron [Zofran ODT] 4 mg PO Q6H PRN #20 tab.dis 12/10/19 [Rx] methylPREDNISolone [Methylprednisolone] 16 mg PO DAILY #4 tablet 12/13/19 [Rx] Referrals: Francisco Javier Moss MD [Physician] - 12/15/19 1:00 pm (please arrive 15 minutes early to register for your appointment.) - Discharge Summary/Plan Comment DC Time >30 min.: No - Patient Data Vitals - Most Recent: Last Vital Signs Temp 98.5 F 12/13/19 10:52 Pulse 85 12/13/19 10:55 Resp 16 12/13/19 10:52 BP 109/56 L 12/13/19 10:52 Pulse Ox 96 12/13/19 10:52 Weight - Most Recent: 153 lb 14.122 oz I&O - Last 24 hours: Intake & Output 12/12/19 12/13/19 12/13/19 22:59 06:59 14:59 Intake Total 600 Balance 600 Lab Results - Last 24 hrs: Laboratory Results - last 24 hr 12/13/19 Range/Units 05:03 Sodium 140 (140-148) mmol/L Potassium 4.2 (3.6-5.2) mmol/L Chloride 104 (100-108) mmol/L Carbon Dioxide 25 (21-32) mmol/L Anion Gap 10.9 (5.0-14.0) mmol/L BUN 12 (7-18) mg/dL Creatinine 0.9 (0.6-1.0) mg/dL Est Cr Clr Drug Dosing 82.20 mL/min Estimated GFR (MDRD) > 60 (>60) Glucose 132 H (74-106) mg/dL Calcium 9.0 (8.5-10.1) mg/dL Med Orders - Current: Current Medications Acetaminophen (Tylenol) 650 mg PO Q4H PRN PRN Reason: Pain (Mild 1-3)/fever Aspirin (Halfprin) 81 mg PO DAILY [facility] Last Admin: 12/13/19 09:19 Dose: 81 mg Bupropion HCl (Wellbutrin Xl) 450 mg PO DAILY [facility] Last Admin: 12/13/19 09:20 Dose: 450 mg Estrogens Conjugated (Premarin) 1.25 mg PO BID [facility] Last Admin: 12/13/19 09:19 Dose: 1.25 mg Ibuprofen (Motrin) 600 mg PO Q6H PRN PRN Reason: Pain/Fever Levalbuterol HCl (Xopenex) 1.25 mg NEB QIDRT [facility] Last Admin: 12/13/19 10:55 Dose: 1.25 mg Levalbuterol HCl (Xopenex) 1.25 mg NEB Q4H PRN PRN Reason: shortness of breath/wheezing Levothyroxine Sodium (Synthroid) 175 mcg PO ACBREAKFAST [facility] Lorazepam (Ativan) 0.5 mg IVPUSH Q4H PRN PRN Reason: Nausea/Vomiting Magnesium Hydroxide (Milk Of Magnesia) 30 ml PO Q12H PRN PRN Reason: Constipation Methylprednisolone Sodium Succinate (Solu-Medrol) 40 mg IVPUSH Q8H [facility] Last Admin: 12/13/19 07:44 Dose: 40 mg Morphine Sulfate (Morphine) 2 mg IVPUSH Q2H PRN PRN Reason: severe cough Last Admin: 12/11/19 19:30 Dose: 2 mg Ondansetron HCl (Zofran Odt) 4 mg PO Q6H PRN PRN Reason: Nausea able to take PO Ondansetron HCl (Zofran) 4 mg IV Q6H PRN PRN Reason: Nausea/Vomiting Pantoprazole Sodium (Protonix) 40 mg PO DAILY PRN PRN Reason: ACID REFLUX Discontinued Medications Albuterol/Ipratropium (Duoneb 3.0-0.5 Mg/3 Ml) 3 ml NEB ONETIME ONE Stop: 12/11/19 15:34 Last Admin: 12/11/19 15:39 Dose: 3 ml Levothyroxine Sodium (Synthroid) 175 mcg PO ACBREAKFAST [facility] Last Admin: 12/12/19 08:47 Dose: Not Given Levothyroxine Sodium (Synthroid) 175 mcg PO ACBREAKFAST [facility] Last Admin: 12/13/19 06:36 Dose: Not Given Methylprednisolone Sodium Succinate (Solu-Medrol) 125 mg IVPUSH ONETIME ONE Stop: 12/11/19 15:53 Last Admin: 12/11/19 15:57 Dose: 125 mg Methylprednisolone Sodium Succinate (Solu-Medrol) 62.5 mg IVPUSH Q8H [facility] Last Admin: 12/12/19 08:31 Dose: 62.5 mg Non-Formulary Medication (Ondansetron [Zofran Odt]) 4 mg PO Q6H PRN PRN Reason: Nausea - Exam General: Reports: Alert, Oriented, Cooperative, No Acute Distress Lungs: Reports: Clear to Auscultation, Normal Respiratory Effort Cardiovascular: Reports: Regular Rate, Regular Rhythm, No Murmurs GI/Abdominal Exam: Soft, Non-Tender, No Organomegaly, No Distention
[2019-12-14] MEDS ORDERED: Levothyroxine 50 MCG Tab PO SCH (07:30)
== END 2019-12-13 13:04 | disposition home or self-care (01) ==
LOC: JP.ED 15:01 → JP.MS 16:57
PROVIDERS: ADMIT Internal Medicine; ATTEND Internal Medicine
DX: J45.41 Moderate persistent asthma with (acute) exacerbation (principal); J96.01 Acute respiratory failure with hypoxia; B44.1 Other pulmonary aspergillosis; Z79.82 Long term (current) use of aspirin; Z79.899 Other long term (current) drug therapy; Z88.0 Allergy status to penicillin; Z88.2 Allergy status to sulfonamides; Z88.5 Allergy status to narcotic agent; Z88.8 Allergy status to other drugs, medicaments and biological substances; Z91.041 Radiographic dye allergy status
CPT/HCPCS: 36415; 71046; 80048; 80053; 85025; 85027; 85651; 86140; 94640; 96374; 96375; 99285; A9270; J2270; J2920; J2930; J7612; J7620-GY

== ENCOUNTER 2020-02-22 18:05 | Emergency (ER) | payer MEDICAID ==
--- NOTE | 2020-02-22 19:29 | EDM.PDOC ---
ED HPI GENERAL MEDICAL PROBLEM - General Chief Complaint: Skin Complaint Stated Complaint: BLISTERS Time Seen by Provider: 02/22/20 19:24 Source of Information: Reports: Patient History Limitations: Reports: No Limitations - History of Present Illness INITIAL COMMENTS - FREE TEXT/NARRATIVE: pt has taken nearly a full course of macrobid and 1-2 days after she started it she developed some blisters on her lips. She then developed 3 blisters on her hand and she has one blister on her foot. She does not feel ill. She is on 8 mg of predisone and she does have 2 more days of this. She is itchy but does not feel ill. She has been on the antifungal she is on for weeks and she has tolerated that well. Onset: Other ( started Thursday or Thursday. ) Duration: Hour(s): Location: Reports: Face, Upper Extremity, Left, Upper Extremity, Right Associated Symptoms: Reports: No Other Symptoms, Other (pt has a known history of a UTI) - Related Data Allergies Allergy/AdvReac Type Severity Reaction Status Date / Time blue dye Allergy Severe Anaphylactic Verified 02/22/20 18:33 Shock flecainide Allergy Severe Anaphylactic Verified 02/22/20 18:33 Shock Penicillins Allergy Severe Anaphylactic Verified 02/22/20 18:33 Shock propafenone Allergy Severe Anaphylactic Verified 02/22/20 18:33 Shock Sulfa (Sulfonamide Allergy Severe Anaphylactic Verified 02/22/20 18:33 Antibiotics) Shock yellow dye Allergy Severe Anaphylactic Verified 02/22/20 18:33 Shock dofetilide Allergy Cannot Verified 02/22/20 18:33 Remember codeine AdvReac Vomiting Verified 02/22/20 18:33 Home Meds: Home Meds Albuterol Sulfate 2.5 mg IH Q4HR 06/14/19 [History] Albuterol [Ventolin HFA] 1 puff .XX ASDIRECTED 06/14/19 [History] Budesonide [Pulmicort] 0.25 mg .XX BID #60 neb 06/14/19 [Rx] Estrogens, Conjugated [Premarin] 2 tab PO BID 06/14/19 [History] Levothyroxine Sodium [Synthroid] 175 mcg PO ACBREAKFAST 06/14/19 [History] buPROPion HCL [Bupropion Xl] 450 mg PO DAILY 10/01/19 [History] Acetaminophen [Tylenol] 325 mg PO DAILY 10/13/19 [History] Aspirin [Halfprin] 81 mg PO DAILY 10/13/19 [History] EPINEPHrine [Epinephrine] 0.3 mg IM ASDIRECTED 10/13/19 [History] Ibuprofen 800 mg PO DAILY 10/13/19 [History] Omeprazole 40 mg PO DAILY PRN 10/13/19 [History] Ipratropium [Atrovent] 1 inh INH DAILY 12/09/19 [History] Ondansetron [Zofran ODT] 4 mg PO Q6H PRN #20 tab.dis 12/10/19 [Rx] methylPREDNISolone [Methylprednisolone] 16 mg PO DAILY #4 tablet 12/13/19 [Rx] Voriconazole [Vfend IV] 200 mg IV BID 02/22/20 [History] nitrofurantoin macrocrystaL [Nitrofurantoin] 100 mg PO BID 02/22/20 [History] Past Medical History HEENT History: Reports: None Cardiovascular History: Reports: Afib, [place], Pacemaker, Prior Cardiac Arrest Other Cardiovascular History: chronic v-fib. 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: Reports: Musculoskeletal History: Reports: Fracture Neurological History: Reports: None Endocrine/Metabolic History: Reports: Other (See Below) Other Endocrine/Metabolic History: thyroid removed Oncologic (Cancer) History: Reports: Ovarian, Squamous Cell Carcinoma, Thyroid Dermatologic History: Reports: Other (See Below) 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 - Past Surgical History HEENT Surgical History: Reports: Adenoidectomy, Naso-Sinus Surgery, Tonsillectomy Cardiovascular Surgical History: Reports: Cardiac Ablation, Pacer, Other (See Below) Other Cardiovascular Surgeries/Procedures: cardiac surgery Respiratory Surgical History: Reports: None GI Surgical History: Reports: Appendectomy, Cholecystectomy Female Surgical History: Reports: Hysterectomy, Salpingo-Oophorectomy Endocrine Surgical History: Reports: Thyroidectomy Neurological Surgical History: Reports: Lumbar Spine, Spinal Fusion Musculoskeletal Surgical History: Reports: Other (See Below) Other Musculoskeletal Surgeries/Procedures:: foot surgery Oncologic Surgical History: Reports: None Dermatological Surgical History: Reports: Other (See Below) Social & Family History - Family History Cardiac: Reports: CAD Oncologic: Reports: Lung - Tobacco Use Smoking Status *Q: Never Smoker - Caffeine Use Caffeine Use: Reports: Soda Other Caffeine Use: 1 per day ED ROS GENERAL - Review of Systems Review Of Systems: See Below Constitutional: Reports: No Symptoms HEENT: Reports: No Symptoms Respiratory: Reports: No Symptoms Cardiovascular: Reports: No Symptoms Endocrine: Reports: No Symptoms GI/Abdominal: Reports: No Symptoms : Reports: No Symptoms Musculoskeletal: Reports: No Symptoms Skin: Reports: Pruritis Neurological: Reports: No Symptoms Psychiatric: Reports: No Symptoms ED EXAM, SKIN/RASH Exam: See Below Text/Narrative:: pt arrived with ahistory of blister like rash on hands and inside her mouth. She has been taking yellow tablets of macrobid. She has a known history of yellow dye,allergy. Exam Limited By: No Limitations General Appearance: Alert, Anxious, Mild Distress Ears: Normal TMs Nose: Normal Inspection Throat/Mouth: Normal Inspection Head: Atraumatic Neck: Normal Inspection Respiratory/Chest: No Respiratory Distress Cardiovascular: Regular Rate, Rhythm GI/Abdominal: Soft (Female) Exam: Deferred Rectal (Female) Exam: Deferred Back Exam: Normal Inspection Extremities: Normal Inspection Location, Skin: Other ( blister like rash on the hands and on the inner lower lip. ) Characteristics: Bullous, Other ( blister like rash total of 5 blisters, some are drying up. ) Course - Vital Signs Last Recorded V/S: Last Vital Signs Temp 36.3 C 02/22/20 18:22 Pulse 82 02/22/20 18:22 Resp 16 02/22/20 18:22 BP 131/81 02/22/20 18:22 Pulse Ox 97 02/22/20 18:22 - Orders/Labs/Meds Labs: Laboratory Tests 02/22/20 02/22/20 02/22/20 Range/Units 19:05 19:15 19:15 WBC 11.5 H (4.5-11.0) K/uL RBC 4.10 (3.30-5.50) M/uL Hgb 12.7 (12.0-15.0) g/dL Hct 39.3 (36.0-48.0) % MCV 96 (80-98) fL MCH 31 (27-31) pg MCHC 32 (32-36) % Plt Count 291 (150-400) K/uL Neut % (Auto) 88 H (36-66) % Lymph % (Auto) 8 L (24-44) % [place] % (Auto) 3 (2-6) % Eos % (Auto) 0 L (2-4) % Baso % (Auto) 0 (0-1) % Sodium (140-148) mmol/L Potassium (3.6-5.2) mmol/L Chloride (100-108) mmol/L Carbon Dioxide (21-32) mmol/L Anion Gap (5.0-14.0) mmol/L BUN (7-18) mg/dL Creatinine (0.6-1.0) mg/dL Est Cr Clr Drug Dosing mL/min Estimated GFR (MDRD) (>60) Glucose (74-106) mg/dL Calcium (8.5-10.1) mg/dL Total Bilirubin (0.2-1.0) mg/dL AST (15-37) U/L ALT (12-78) U/L Alkaline Phosphatase (46-116) U/L C-Reactive Protein 0.35 H (0.0-0.3) mg/dL Total Protein (6.4-8.2) g/dL Albumin (3.4-5.0) g/dL Globulin (2.3-3.5) g/dL Albumin/Globulin Ratio (1.2-2.2) Urine Color Yellow (YELLOW) Urine Appearance Clear (CLEAR) Urine pH 7.0 (5.0-8.0) Ur Specific [place] 1.020 (1.008-1.030) Urine Protein Negative (NEGATIVE) mg/dL Urine Glucose (UA) Negative (NEGATIVE) mg/dL Urine Ketones Negative (NEGATIVE) mg/dL Urine Occult Blood Negative (NEGATIVE) Urine Nitrite Negative (NEGATIVE) Urine Bilirubin Negative (NEGATIVE) Urine Urobilinogen 0.2 (0.2-1.0) EU/dL Ur Leukocyte Esterase Negative (NEGATIVE) Urine RBC Not seen (0-5) Urine WBC Not seen (0-5) Ur Epithelial Cells Few Amorphous Sediment Not seen Urine Bacteria Few Urine Mucus Not seen 02/22/20 Range/Units 19:15 WBC (4.5-11.0) K/uL RBC (3.30-5.50) M/uL Hgb (12.0-15.0) g/dL Hct (36.0-48.0) % MCV (80-98) fL MCH (27-31) pg MCHC (32-36) % Plt Count (150-400) K/uL Neut % (Auto) (36-66) % Lymph % (Auto) (24-44) % [place] % (Auto) (2-6) % Eos % (Auto) (2-4) % Baso % (Auto) (0-1) % Sodium 141 (140-148) mmol/L Potassium 3.6 (3.6-5.2) mmol/L Chloride 104 (100-108) mmol/L Carbon Dioxide 28 (21-32) mmol/L Anion Gap 8.7 (5.0-14.0) mmol/L BUN 15 D (7-18) mg/dL Creatinine 1.0 (0.6-1.0) mg/dL Est Cr Clr Drug Dosing 74.24 mL/min Estimated GFR (MDRD) 60 (>60) Glucose 110 H (74-106) mg/dL Calcium 8.5 (8.5-10.1) mg/dL Total Bilirubin 0.5 (0.2-1.0) mg/dL AST 14 L (15-37) U/L ALT 24 (12-78) U/L Alkaline Phosphatase 52 (46-116) U/L C-Reactive Protein (0.0-0.3) mg/dL Total Protein 7.0 (6.4-8.2) g/dL Albumin 3.8 (3.4-5.0) g/dL Globulin 3.2 (2.3-3.5) g/dL Albumin/Globulin Ratio 1.2 (1.2-2.2) Urine Color (YELLOW) Urine Appearance (CLEAR) Urine pH (5.0-8.0) Ur Specific [place] (1.008-1.030) Urine Protein (NEGATIVE) mg/dL Urine Glucose (UA) (NEGATIVE) mg/dL Urine Ketones (NEGATIVE) mg/dL Urine Occult Blood (NEGATIVE) Urine Nitrite (NEGATIVE) Urine Bilirubin (NEGATIVE) Urine Urobilinogen (0.2-1.0) EU/dL Ur Leukocyte Esterase (NEGATIVE) Urine RBC (0-5) Urine WBC (0-5) Ur Epithelial Cells Amorphous Sediment Urine Bacteria Urine Mucus Meds: Medications Discontinued Medications Generic Name Dose Route Start Last Admin Trade Name [place] PRN Reason Stop Dose Admin Triamcinolone Acetonide 60 mg 02/22/20 19:57 02/22/20 20:09 Kenalog-40 IM 02/22/20 19:58 60 mg ASDIRECTED ONE Administration - Re-Assessments/Exams Free Text/Narrative Re-Assessment/Exam: 02/22/20 20:04 pt has normal lab. Her urine looks clear at this point, no further antibiotic will be used. kenalog 60 mg im will be given. 02/23/20 18:37 Departure - Departure Time of Disposition: 19:58 Disposition: Home, Self-Care 01 Condition: Fair Clinical Impression: Allergic reaction caused by a drug - Discharge Information Instructions: Allergies, Adult, [id number] Referrals: Francisco Javier Moss MD [Primary Care Provider] - Forms: ED Department Discharge Care Plan Goals: rtc if pt develops alot more blisters suddenly. Pt may resume her antifuingal tomorrow evening, Pt may use benadryl for itching. Pt will contact Dr Moss tomorrow. stop macrodantin. Sepsis Event Note (ED) - Evaluation Sepsis Screening Result: No Definite Risk
[2020-02-22] MEDS ORDERED: Triamcinolone Acetonide 40 MG/ML 1 ML MDV IM ONE (19:57)
== END 2020-02-22 20:52 | disposition home or self-care (01) ==
LOC: JP.ED 18:05
DX: S00.521A Blister (nonthermal) of lip, initial encounter (principal); S60.522A Blister (nonthermal) of left hand, initial encounter; S60.521A Blister (nonthermal) of right hand, initial encounter; T37.8X5A Adverse effect of other specified systemic anti-infectives and antiparasitics, initial encounter; I48.91 Unspecified atrial fibrillation; I25.2 Old myocardial infarction; J45.909 Unspecified asthma, uncomplicated; Z87.440 Personal history of urinary (tract) infections; Z91.041 Radiographic dye allergy status; Z88.0 Allergy status to penicillin; Z88.8 Allergy status to other drugs, medicaments and biological substances; Z88.2 Allergy status to sulfonamides; Z88.5 Allergy status to narcotic agent; Z79.82 Long term (current) use of aspirin; Z79.899 Other long term (current) drug therapy
CPT/HCPCS: 36415; 80053; 81001; 85025; 86140; 96372; 99283; J3301

== ENCOUNTER 2020-02-27 21:28 | Emergency (ER) | payer MEDICAID ==
--- NOTE | 2020-02-27 22:18 | EDM.PDOC ---
ED HPI GENERAL MEDICAL PROBLEM - General Chief Complaint: General Stated Complaint: PIX LINE Time Seen by Provider: 02/27/20 22:00 Source of Information: Reports: Patient History Limitations: Reports: No Limitations - History of Present Illness INITIAL COMMENTS - FREE TEXT/NARRATIVE: chief complaint: PICC Line pulled out This is a 45 year old female present to the ER for evaluation of PICC Line. She had a PICC Line placed 3 months ago for treatment of fungal lung infection, has daily antibiotics therapy for 6 months. reports no other concerns. - Related Data Allergies Allergy/AdvReac Type Severity Reaction Status Date / Time blue dye Allergy Severe Anaphylactic Verified 02/27/20 21:37 Shock flecainide Allergy Severe Anaphylactic Verified 02/27/20 21:37 Shock Penicillins Allergy Severe Anaphylactic Verified 02/27/20 21:37 Shock propafenone Allergy Severe Anaphylactic Verified 02/27/20 21:37 Shock Sulfa (Sulfonamide Allergy Severe Anaphylactic Verified 02/27/20 21:37 Antibiotics) Shock yellow dye Allergy Severe Anaphylactic Verified 02/27/20 21:37 Shock dofetilide Allergy Cannot Verified 02/27/20 21:37 Remember codeine AdvReac Vomiting Verified 02/27/20 21:37 Home Meds: Home Meds Albuterol Sulfate 2.5 mg IH Q4HR 06/14/19 [History] Albuterol [Ventolin HFA] 1 puff .XX ASDIRECTED 06/14/19 [History] Budesonide [Pulmicort] 0.25 mg .XX BID #60 neb 06/14/19 [Rx] Estrogens, Conjugated [Premarin] 2 tab PO BID 06/14/19 [History] Levothyroxine Sodium [Synthroid] 175 mcg PO ACBREAKFAST 06/14/19 [History] buPROPion HCL [Bupropion Xl] 450 mg PO DAILY 06/14/19 [History] Acetaminophen [Tylenol] 325 mg PO DAILY 10/13/19 [History] Aspirin [Halfprin] 81 mg PO DAILY 10/13/19 [History] EPINEPHrine [Epinephrine] 0.3 mg IM ASDIRECTED 10/13/19 [History] Ibuprofen 800 mg PO DAILY 10/13/19 [History] Omeprazole 40 mg PO DAILY PRN 10/13/19 [History] Ipratropium [Atrovent] 1 inh INH DAILY 12/09/19 [History] Ondansetron [Zofran ODT] 4 mg PO Q6H PRN #20 tab.dis 12/10/19 [Rx] methylPREDNISolone [Methylprednisolone] 16 mg PO DAILY #4 tablet 12/13/19 [Rx] Voriconazole [Vfend IV] 200 mg IV BID 02/22/20 [History] nitrofurantoin macrocrystaL [Nitrofurantoin] 100 mg PO BID 02/22/20 [History] Past Medical History HEENT History: Reports: None Cardiovascular History: Reports: Afib, [place], Pacemaker, Prior Cardiac Arrest Other Cardiovascular History: chronic v-fib. 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: Musculoskeletal History: Reports: Fracture Neurological History: Reports: None Endocrine/Metabolic History: Reports: Other (See Below) Other Endocrine/Metabolic History: thyroid removed Oncologic (Cancer) History: Reports: Ovarian, Squamous Cell Carcinoma, Thyroid Dermatologic History: Reports: Other (See Below) 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 - Past Surgical History HEENT Surgical History: Reports: Adenoidectomy, Naso-Sinus Surgery, Tonsillectomy Cardiovascular Surgical History: Reports: Cardiac Ablation, Pacer, Other (See Below) Other Cardiovascular Surgeries/Procedures: cardiac surgery Respiratory Surgical History: Reports: None GI Surgical History: Reports: Appendectomy, Cholecystectomy Female Surgical History: Reports: Hysterectomy, Salpingo-Oophorectomy Endocrine Surgical History: Reports: Thyroidectomy Neurological Surgical History: Reports: Lumbar Spine, Spinal Fusion Musculoskeletal Surgical History: Reports: Other (See Below) Other Musculoskeletal Surgeries/Procedures:: foot surgery Oncologic Surgical History: Reports: None Dermatological Surgical History: Reports: Other (See Below) Social & Family History - Family History Cardiac: Reports: CAD Oncologic: Reports: Lung - Tobacco Use Smoking Status *Q: Never Smoker - Caffeine Use Caffeine Use: Reports: None Other Caffeine Use: 1 per day - Recreational Drug Use Recreational Drug Use: No ED ROS GENERAL - Review of Systems Review Of Systems: See Below Constitutional: Reports: No Symptoms, Other (PICC Line complications) Free Text/Narrative/Comment: PICC Line noted to right upper arm with 54 cm of line pulled out. no bleeding or pain. ED EXAM, GENERAL - Physical Exam Exam: See Below Exam Limited By: No Limitations General Appearance: Alert, WD/WN, No Apparent Distress Peripheral Pulses: 2+: Radial (R) Extremities: Other (PICC Line noted at 54 cm aye proximal to IV site. no bleeding, discharge or pain is noted.) ED GENERAL MEDICAL PROCEDURES - Additional/Other Procedure(s) Other (Free Text) Procedure(s): PICC Line removed by Nursing, pressure applied, then bandage. Ms. Woods tolerated removal without complication Departure - Departure Time of Disposition: 22:18 Disposition: Home, Self-Care 01 Condition: Good Clinical Impression: PIC line (peripherally inserted central catheter) removal - Discharge Information *PRESCRIPTION DRUG MONITORING PROGRAM REVIEWED*: Not Applicable Referrals: Francisco Javier Moss MD [Primary Care Provider] - Care Plan Goals: PICC Line removal -will place Outpatient Order for PICC Line placement tomorrow am. -Ms. Woods agrees with plan of care. Return to ER for any concerns. - Problem List & Annotations (1) PIC line (peripherally inserted central catheter) removal SNOMED Code(s): 2462088603016, [id number], [id number], [id number] Code(s): Z45.2 - ENCOUNTER FOR ADJUSTMENT AND MANAGEMENT OF VAD Status: Acute Priority: High Current Visit: Yes - Problem List Review Problem List Initiated/Reviewed/Updated: Yes - Assessment/Plan Plan: PICC Line removal -will place Outpatient Order for PICC Line placement tomorrow am. -Ms. Woods agrees with plan of care. Return to ER for any concerns.
== END 2020-02-27 22:23 | disposition home or self-care (01) ==
LOC: JP.ED 21:28
DX: Z45.2 Encounter for adjustment and management of vascular access device (principal); I48.91 Unspecified atrial fibrillation; I25.2 Old myocardial infarction; Z95.0 Presence of cardiac pacemaker; Z88.8 Allergy status to other drugs, medicaments and biological substances; Z88.0 Allergy status to penicillin; Z88.2 Allergy status to sulfonamides; Z88.5 Allergy status to narcotic agent; Z91.048 Other nonmedicinal substance allergy status; Z79.82 Long term (current) use of aspirin; Z79.899 Other long term (current) drug therapy
CPT/HCPCS: 99283

== ENCOUNTER 2020-04-09 06:54 | Day surgery (SDC) | payer MEDICAID ==
[~2020-04-09 06:54] MED LIST: Bupivacaine 0.5% 50 ML MDV ONE; Lidocaine 1% with EPINEPHrine 1:100,000 50 ML MDV ONE
[2020-04-09] MEDS ORDERED: fentaNYL 100 MCG/2 ML SDV ONE (07:26)
[2020-04-09] MEDS ORDERED: Midazolam 1 MG/ML 2 ML SDV ONE (07:26)
[2020-04-09] MEDS ORDERED: Propofol 200 MG/20 ML SDV ONE ×3 (07:27→09:05)
[2020-04-09] MEDS ORDERED: Sodium Chloride 0.9% 1,000 ML IV SCH (08:00)
[2020-04-09] MEDS ORDERED: Lactated Ringers 1,000 ML ONE (09:18)
--- NOTE | 2020-04-09 12:11 | CR ---
CHEST: Portable 04/09/2020 at 10:27 AM CLINICAL HISTORY: Right central venous catheter placement Checking for pneumothorax COMPARISON:03/23/2020 FINDINGS: Patient has had interval placement of an [id number] catheter from the right jugular approach. Patient also has a permanent cardiac pacer. The lungs are clear. There is no pneumothorax. Mediastinum is normal contour. Impression: Interval placement of a right jugular Chewtt-f-Eclr catheter No acute cardiopulmonary process.
--- NOTE | 2020-04-09 17:12 | OR ---
DATE OF PROCEDURE: 04/09/2020 SURGEON: Kashmir Nichols MD PROCEDURE: Tunneled internal jugular vein Port-A-Cath placement, right. COMPLICATIONS: None. SETTER JUICE PACKAGING MACHINES: None. ANESTHESIA: MAC. RISKS: Risks, benefits, alternatives, and limitations including, but not limited to, infection, bleeding, pneumothorax, chronic pain, hematoma, carotid artery injury and other risks not listed here were explained to the patient and she wished to proceed. We also discussed clotting, central venous thrombosis, pulmonary embolism, problems with the device such as rotation or clotting and other risks not listed here. The patient understands these risks and wishes to proceed. PROCEDURE IN DETAIL: The patient was placed in supine position. Due to the patient's pacemaker, the subclavian on the right was identified first. This was accessed on first pass. This was accessed using a micropuncture needle kit. During this process, attempts to change this out to a larger 35,000th wire was unsuccessful due to most likely scarring as the patient had a previous device in the subclavian vein on the right. Therefore, the procedure was then converted to an internal jugular vein access. This was accessed on the first pass without difficulty with a different micropuncture needle kit and exchanged for a 35,000th wire and subsequently dilated. The tubing was then advanced into the superior vena cava. The tunnel was then created down into the superior right chest. The tubing was placed through this. This was hooked to the Port-A-Cath reservoir. This was then sutured in 3 places. Careful attention was made not to pass a needle through any of the tubing or device inadvertently. This was checked for withdrawal and injection, no problems were noted. Fluoroscopy was used to ensure there was no twisting of the tubing, none was noted. The wound was closed with 3-0 Vicryl and 4-0 Vicryl in interrupted running fashion. A needle was then placed again after the skin was closed and checked again and good flow with respect to aspiration and injection was noted. The dressings were applied. The patient tolerated the procedure well. Kashmir Nichols MD /[id number]
== END 2020-04-09 10:51 | disposition home or self-care (01) ==
LOC: JP.SDS 06:54
PROVIDERS: ATTEND Surgery
DX: T82.898A Other specified complication of vascular prosthetic devices, implants and grafts, initial encounter (principal); J45.909 Unspecified asthma, uncomplicated; I50.32 Chronic diastolic (congestive) heart failure; Z95.0 Presence of cardiac pacemaker
CPT/HCPCS: 36561; 71045; 77001; C1776; C1788; C1894; J1642; J2250; J2704; J3010; J3490; J7030; J7120

== ENCOUNTER 2020-07-21 17:38 | Emergency (ER) | payer MEDICAID ==
[2020-07-21] MEDS ORDERED: Ketorolac 60 MG/2 ML SDV IM ONE (18:20)
--- NOTE | 2020-07-21 18:24 | EDM.PDOC ---
ED HPI GENERAL MEDICAL PROBLEM - General Chief Complaint: Abdominal Pain Stated Complaint: PAIN ON RIGHT SIDE RIB Time Seen by Provider: 07/21/20 18:10 Source of Information: Reports: Patient, RN Notes Reviewed History Limitations: Reports: No Limitations - History of Present Illness INITIAL COMMENTS - FREE TEXT/NARRATIVE: Taisha presents today with complaints of right lower rib/RUQ pain off and on for 7 days. The pain is dull and aching. At times she has hot sweats from the pain. She reports OTC medications have not helped the pain. She denies any triggers to pain. She denies fever, chills, nausea, vomiting, change in bowel/bladder or other concerns. Currently undergoing treatment for aspergillis infection. Right Upper Abdomen Pain Score (Numeric/FACES): 8 - Related Data Allergies Allergy/AdvReac Type Severity Reaction Status Date / Time blue dye Allergy Severe Anaphylactic Verified 07/21/20 17:55 Shock flecainide Allergy Severe Anaphylactic Verified 07/21/20 17:55 Shock Penicillins Allergy Severe Anaphylactic Verified 07/21/20 17:55 Shock propafenone Allergy Severe Anaphylactic Verified 07/21/20 17:55 Shock Sulfa (Sulfonamide Allergy Severe Anaphylactic Verified 07/21/20 17:55 Antibiotics) Shock yellow dye Allergy Severe Anaphylactic Verified 07/21/20 17:55 Shock dofetilide Allergy Cannot Verified 07/21/20 17:55 Remember latex Allergy Rash Verified 07/21/20 17:55 nitrofurantoin Allergy Rash Verified 07/21/20 17:55 [From Macrobid] codeine AdvReac Vomiting Verified 07/21/20 17:55 Home Meds: Home Meds Estrogens, Conjugated [Premarin] 2 tab PO BID 06/14/19 [History] Levothyroxine Sodium [Synthroid] 175 mcg PO ACBREAKFAST 06/14/19 [History] buPROPion HCL [Bupropion Xl] 450 mg PO DAILY 06/14/19 [History] Acetaminophen [Tylenol] 325 mg PO DAILY 10/13/19 [History] Aspirin [Halfprin] 81 mg PO DAILY 10/13/19 [History] EPINEPHrine [Epinephrine] 0.3 mg IM ASDIRECTED PRN 10/13/19 [History] Ibuprofen 800 mg PO DAILY PRN 10/13/19 [History] Omeprazole 40 mg PO DAILY PRN 10/13/19 [History] Voriconazole [Vfend IV] 250 mg IV BID 02/22/20 [History] Past Medical History HEENT History: Reports: Allergic Rhinitis, Impaired Vision Cardiovascular History: Reports: Afib, Heart Failure, [place], Pacemaker, Prior Cardiac Arrest Other Cardiovascular History: chronic v-fib complete heart block, paroxysmal atrial tachycardia, hx SVT. 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: Reports: Musculoskeletal History: Reports: Fracture Neurological History: Reports: Headaches, Chronic Psychiatric History: Reports: Mood Swings, OCD Endocrine/Metabolic History: Reports: Other (See Below) Other Endocrine/Metabolic History: thyroid removed, hypoglycemia Oncologic (Cancer) History: Reports: Ovarian, Squamous Cell Carcinoma, Thyroid Dermatologic History: Reports: Other (See Below) 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 - Infectious Disease History Infectious Disease History: Reports: None Other Infectious Disease History: bronchopulmonary aspergilliosis - Past Surgical History HEENT Surgical History: Reports: Adenoidectomy, Naso-Sinus Surgery, Tonsillectomy Other HEENT Surgeries/Procedures: nasal polyps Cardiovascular Surgical History: Reports: Cardiac Ablation, Pacer, Other (See Be low) Other Cardiovascular Surgeries/Procedures: cardiac surgery Respiratory Surgical History: Reports: None GI Surgical History: Reports: Appendectomy, Cholecystectomy, EGD Female Surgical History: Reports: Hysterectomy, Salpingo-Oophorectomy Endocrine Surgical History: Reports: Thyroidectomy Neurological Surgical History: Reports: Lumbar Spine, Spinal Fusion Musculoskeletal Surgical History: Reports: Other (See Below) Other Musculoskeletal Surgeries/Procedures:: foot surgery Oncologic Surgical History: Reports: None Dermatological Surgical History: Reports: Other (See Below) Social & Family History - Family History Family Medical History: Noncontributory Cardiac: Reports: CAD Oncologic: Reports: Lung - Tobacco Use Tobacco Use Status *Q: Never Tobacco User - Caffeine Use Caffeine Use: Reports: Soda Other Caffeine Use: 1 per day - Recreational Drug Use Recreational Drug Use: No ED ROS GENERAL - Review of Systems Review Of Systems: See Below Constitutional: Reports: No Symptoms HEENT: Reports: No Symptoms Respiratory: Reports: No Symptoms Cardiovascular: Reports: No Symptoms Endocrine: Reports: No Symptoms GI/Abdominal: Reports: Abdominal Pain (right upper quadrant, right lower rib pain) : Denies: Discharge, Dysuria, Flank Pain, Frequency, Hematuria, Urgency Musculoskeletal: Reports: Other (Pain to RUQ along rib area radiating to back, does not cross midline, no trauma or injury. ) Skin: Reports: No Symptoms Neurological: Reports: No Symptoms Psychiatric: Reports: No Symptoms Hematologic/Lymphatic: Reports: No Symptoms Immunologic: Reports: No Symptoms ED EXAM, GI/ABD - Physical Exam Exam: See Below Exam Limited By: No Limitations General Appearance: Alert, WD/WN, Mild Distress Eyes: Bilateral: Normal Appearance Ears: Normal External Exam, Normal Canal, Hearing Grossly Normal, Normal TMs Nose: Normal Inspection, Normal Mucosa, No Blood Throat/Mouth: Normal Inspection, Normal Lips, Normal Teeth, Normal Gums, Normal Voice, No Airway Compromise Head: Atraumatic, Normocephalic Neck: Normal Inspection, Supple, Non-Tender, Full Range of Motion. No: Lymphadenopathy (R), Lymphadenopathy (L) Respiratory/Chest: No Respiratory Distress, Lungs Clear, Normal Breath Sounds, No Accessory Muscle Use, Chest Non-Tender. No: Crackles, Rales, Rhonchi, Wheezing Cardiovascular: Normal Peripheral Pulses, Regular Rate, Rhythm, No Edema, No Gallop, No Murmur, No Rub GI/Abdominal Exam: Normal Bowel Sounds, Soft, No Organomegaly, No Distention, No Mass, Pelvis Stable, Tender (to RUQ). No: Guarding, Rigid, Rebound, Hernia Back Exam: Normal Inspection, Full Range of Motion, Other (tenderness to right lower ribs, pain to right lower ribs radiating to right posterior ribs along dermatome T10, does not cross midline, no rash). No: CVA Tenderness (R), CVA Tenderness (L), Decreased Range of Motion, Muscle Spasm, Paraspinal Tenderness, Vertebral Tenderness Extremities: Normal Inspection, Normal Range of Motion, Non-Tender, No Pedal Edema, Normal Capillary Refill Neurological: Alert, Oriented, Normal Cognition, Normal Gait, Normal Reflexes, No Motor/Sensory Deficits Psychiatric: Normal Affect, Normal Mood Skin Exam: Warm, Dry, Intact, Normal Color, No Rash Lymphatic: No Adenopathy #1 Interpretation EKG Date: 07/21/20 Time: 21:28 Rhythm: NSR Rate (Beats/Min): 71 ST-T: Other (elevated V1, V2, V3,depressed V5, V6) Comparison: NA - No Prior EKG EKG Interpretation Comments: BBB Course - Vital Signs Last Recorded V/S: Last Vital Signs Temp 35.6 C L 07/21/20 22:14 Pulse 70 07/21/20 22:14 Resp 16 07/21/20 22:14 BP 147/72 H 07/21/20 22:14 Pulse Ox 96 07/21/20 22:14 - Orders/Labs/Meds Orders: Active Orders 24 hr Category Date Time Status EKG 12 Lead [EK] Routine Ther 07/21/20 21:32 Ordered Labs: Laboratory Tests 07/21/20 07/21/20 07/21/20 Range/Units 18:37 18:37 20:20 WBC 8.5 (4.5-11.0) K/uL RBC 4.34 (3.30-5.50) M/uL Hgb 13.2 (12.0-15.0) g/dL Hct 41.5 (36.0-48.0) % MCV 96 (80-98) fL MCH 30 (27-31) pg MCHC 32 (32-36) % Plt Count 338 (150-400) K/uL Neut % (Auto) 80 H (36-66) % Lymph % (Auto) 13 L (24-44) % [place] % (Auto) 7 H (2-6) % Eos % (Auto) 0 L (2-4) % Baso % (Auto) 0 (0-1) % Sodium 139 L (140-148) mmol/L Potassium 4.2 (3.6-5.2) mmol/L Chloride 102 (100-108) mmol/L Carbon Dioxide 26 (21-32) mmol/L Anion Gap 15.2 H (5.0-14.0) mmol/L BUN 20 H (7-18) mg/dL Creatinine 1.1 H (0.6-1.0) mg/dL Est Cr Clr Drug Dosing 66.78 mL/min Estimated GFR (MDRD) 53 L (>60) Glucose 133 H (74-106) mg/dL Calcium 8.9 (8.5-10.1) mg/dL Total Bilirubin 0.7 (0.2-1.0) mg/dL AST 12 L (15-37) U/L ALT 26 (12-78) U/L Alkaline Phosphatase 83 (46-116) U/L Troponin I (0.000-0.056) ng/mL C-Reactive Protein (0.0-0.3) mg/dL Total Protein 7.1 (6.4-8.2) g/dL Albumin 3.9 (3.4-5.0) g/dL Globulin 3.2 (2.3-3.5) g/dL Albumin/Globulin Ratio 1.2 (1.2-2.2) Urine Color Yellow (YELLOW) Urine Appearance Clear (CLEAR) Urine pH 6.0 (5.0-8.0) Ur Specific [place] >= 1.030 (1.008-1.030) Urine Protein Negative (NEGATIVE) mg/dL Urine Glucose (UA) Negative (NEGATIVE) mg/dL Urine Ketones Negative (NEGATIVE) mg/dL Urine Occult Blood Negative (NEGATIVE) Urine Nitrite Negative (NEGATIVE) Urine Bilirubin Negative (NEGATIVE) Urine Urobilinogen 0.2 (0.2-1.0) EU/dL Ur Leukocyte Esterase Negative (NEGATIVE) Urine RBC Not seen (0-5) Urine WBC 0-5 (0-5) Ur Epithelial Cells Many Urine Bacteria Few Urine Mucus Few 07/21/20 Range/Units 21:19 WBC (4.5-11.0) K/uL RBC (3.30-5.50) M/uL Hgb (12.0-15.0) g/dL Hct (36.0-48.0) % MCV (80-98) fL MCH (27-31) pg MCHC (32-36) % Plt Count (150-400) K/uL Neut % (Auto) (36-66) % Lymph % (Auto) (24-44) % [place] % (Auto) (2-6) % Eos % (Auto) (2-4) % Baso % (Auto) (0-1) % Sodium (140-148) mmol/L Potassium (3.6-5.2) mmol/L Chloride (100-108) mmol/L Carbon Dioxide (21-32) mmol/L Anion Gap (5.0-14.0) mmol/L BUN (7-18) mg/dL Creatinine (0.6-1.0) mg/dL Est Cr Clr Drug Dosing mL/min Estimated GFR (MDRD) (>60) Glucose (74-106) mg/dL Calcium (8.5-10.1) mg/dL Total Bilirubin (0.2-1.0) mg/dL AST (15-37) U/L ALT (12-78) U/L Alkaline Phosphatase (46-116) U/L Troponin I < 0.017 (0.000-0.056) ng/mL C-Reactive Protein 0.23 (0.0-0.3) mg/dL Total Protein (6.4-8.2) g/dL Albumin (3.4-5.0) g/dL Globulin (2.3-3.5) g/dL Albumin/Globulin Ratio (1.2-2.2) Urine Color (YELLOW) Urine Appearance (CLEAR) Urine pH (5.0-8.0) Ur Specific [place] (1.008-1.030) Urine Protein (NEGATIVE) mg/dL Urine Glucose (UA) (NEGATIVE) mg/dL Urine Ketones (NEGATIVE) mg/dL Urine Occult Blood (NEGATIVE) Urine Nitrite (NEGATIVE) Urine Bilirubin (NEGATIVE) Urine Urobilinogen (0.2-1.0) EU/dL Ur Leukocyte Esterase (NEGATIVE) Urine RBC (0-5) Urine WBC (0-5) Ur Epithelial Cells Urine Bacteria Urine Mucus Patient lab work, CT, EKG reviewed with Dr. Cerrato, Dr. Jha hospitalist contacted. Patient will be discharged to home. No significant findings other then small pericardial effusion, unknown length of presence without SOB, chest pain, elevation of troponin, injury or trauma. Pain follows along dermatome T10, does not cross midline - will start antiviral and have patient follow up with Dr. Moss. Advised to continue her fdc IV antibiotics. Meds: Medications Discontinued Medications Generic Name Dose Route Start Last Admin Trade Name [place] PRN Reason Stop Dose Admin Hydrocodone Bitart/Acetaminophen 1 tab 07/21/20 22:07 07/21/20 22:15 Peetz 325-5 Mg PO 07/21/20 22:08 Not Given ONETIME ONE Ketorolac Tromethamine 60 mg 07/21/20 18:20 07/21/20 18:29 Toradol IM 07/21/20 18:21 60 mg ONETIME ONE Administration Valacyclovir HCl 1,000 mg 07/21/20 23:00 07/21/20 23:04 Valtrex PO 1,000 mg DAILY ALFREDO Administration - Re-Assessments/Exams Free Text/Narrative Re-Assessment/Exam: No significant improvement in pain after toradol IM. Hydrocodone offered, patient declined. 07/21/20 22:42 Patient assessment, labs, CT scan discussed with Dr. Jha. He is in agreement with plan. Patient will be started on antiviral, NSAIDs-no acute findings on CT scan, no sign of acute infection or myocardial process. Noted small pericardial effusion with no untoward symptoms. Will start antiviral in case shingles is culprit. Return for any SOB or chest pain. Follow up with Dr. Moss on Thursday. Departure - Departure Time of Disposition: 22:55 Disposition: Home, Self-Care 01 Condition: Good Clinical Impression: Shingles, Left sided abdominal pain, Pericardial effusion - Discharge Information Instructions: Sree, [id number] Referrals: Pat Funes PA-C [Primary Care Provider] - Forms: ED Department Discharge Additional Instructions: You have been evaluated and treated for right sided pain at T10, does not cross mid-line. 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 CT scan shows no abnormalities other then a small pericardial effusion. Troponin negative. Take valacyclovir as directed. Take ibuprofen 600mg by mouth four times a day for pain. Take tramadol as needed for uncontrolled pain up to three times a day. Return to the emergency room for any shortness of breath or chest pain. Follow up with Dr. Moss on Thursday for recheck. Return for any worsening, issues or concerns. Sepsis Event Note (ED) - Evaluation Sepsis Screening Result: Possible Sepsis Risk - Focused Exam Vital Signs: Vital Signs Temp Pulse Resp BP Pulse Ox 07/21/20 22:14 35.6 C L 70 16 147/72 H 96 07/21/20 17:50 35.9 C L 92 16 117/77 96 - My Orders Last 24 Hours: My Active Orders 07/21/20 21:32 EKG 12 Lead [EK] Routine - Assessment/Plan Last 24 Hours: My Active Orders 07/21/20 21:32 EKG 12 Lead [EK] Routine Assessment:: Shingles, Left sided abdominal pain, Pericardial effusion Plan: Patient valuated and treated for right sided pain at T10, does not cross mid- line. FPC treatment with antibiotics. CT scan shows no abnormalities other then a small pericardial effusion. Troponin negative. Take valacyclovir as directed. Take ibuprofen 600mg by mouth four times a day for pain. Take tramadol as needed for uncontrolled pain up to three times a day. Return to the emergency room for any shortness of breath or chest pain. Follow up with Dr. Moss on Thursday for recheck. Return for any worsening, issues or concerns.
--- NOTE | 2020-07-21 20:24 | CRLCT ---
INDICATION: Right lower rib pain. Right upper quadrant abdominal pain. TECHNIQUE: CT chest, abdomen and pelvis acquired without contrast. COMPARISON: 04/09/2020 chest x-ray. FINDINGS: CHEST: Cardiovascular structures: Heart is normal in size. Small pericardial effusion. Thoracic aorta and main pulmonary artery are normal in caliber. Mediastinum and macarena: No mass or adenopathy. Lungs and pleura: No focal lung consolidation, pleural effusion or pneumothorax. No suspicious nodule or mass. Chest wall and axilla: Right chest port tip is at the cavoatrial junction. Left chest wall pacemaker leads in the right atrium and right ventricle. Bilateral breast reconstructions. Bones: Healed right 6th and 7th rib fractures are again noted. ABDOMEN AND PELVIS: Liver: Unremarkable. Gallbladder and bile ducts: Cholecystectomy. Pancreas: Unremarkable. Spleen: Unremarkable. Adrenal glands: Unremarkable. Kidneys: Unremarkable. GI tract: Unremarkable. Appendectomy. Vascular structures: Unremarkable. Lymph nodes: Unremarkable. Miscellaneous: Unremarkable. No free air or significant free fluid. Pelvic Organs: Uterus is absent or atrophic. Urinary bladder is unremarkable. Bones: L5-S1 posterior fusion. IMPRESSION: 1. Chronic healed right 6th and 7th rib fracture deformities, similar to prior. 2. Small pericardial effusion. 3. Otherwise no specific findings to account for patient`s symptoms. Please note that all CT scans at this facility use dose modulation, iterative reconstruction, and/or weight-based dosing when appropriate to reduce radiation dose to as low as reasonably achievable. Dictated by Ruben Pittman MD @ Jul 21 2020 8:12PM Signed by Dr. Ruben Pittman @ Jul 21 2020 8:23PM
[2020-07-21] MEDS ORDERED: Acetaminophen/HYDROcodone 325-5 MG Tab PO ONE (22:07)
[2020-07-21] MEDS ORDERED: valACYclovir 1,000 MG Tab PO SCH (23:00)
== END 2020-07-21 23:10 | disposition home or self-care (01) ==
LOC: JP.ED 17:38
DX: I31.3 Pericardial effusion (noninflammatory) (principal); R10.11 Right upper quadrant pain; B02.9 Zoster without complications; I48.91 Unspecified atrial fibrillation; I50.9 Heart failure, unspecified; I25.2 Old myocardial infarction; J45.909 Unspecified asthma, uncomplicated; Z91.041 Radiographic dye allergy status; Z88.0 Allergy status to penicillin; Z88.8 Allergy status to other drugs, medicaments and biological substances; Z88.2 Allergy status to sulfonamides; Z91.040 Latex allergy status; Z88.1 Allergy status to other antibiotic agents; Z88.5 Allergy status to narcotic agent; Z79.82 Long term (current) use of aspirin; Z79.899 Other long term (current) drug therapy
CPT/HCPCS: 36415; 71250; 74176; 80053; 81001; 84484; 85025; 86140; 93005; 96372; 99284; A9270; J1885; 93010

== ENCOUNTER 2020-09-18 06:43 | Day surgery (SDC) | payer MEDICAID ==
[2020-09-18] MEDS ORDERED: Sodium Chloride 0.9% 1,000 ML IV SCH (07:00)
[2020-09-18] MEDS ORDERED: Propofol 200 MG/20 ML SDV ONE (07:21)
[2020-09-18] MEDS ORDERED: fentaNYL 100 MCG/2 ML SDV ONE (07:21)
[2020-09-18] MEDS ORDERED: Midazolam 1 MG/ML 2 ML SDV ONE (07:21)
[2020-09-18] MEDS ORDERED: Ondansetron 4 MG/2 ML SDV ONE (07:40)
--- NOTE | 2020-09-18 11:31 | OR ---
DATE OF PROCEDURE: 09/18/2020 SURGEON: Kashmir Nichols MD PROCEDURE: Esophagogastroduodenoscopy. FINDINGS: Gastritis, mild. COMPLICATIONS: None. CELL SUPPORT OPERATOR: None. PREOPERATIVE DIAGNOSIS: Abdominal pain. POSTOPERATIVE DIAGNOSIS: Abdominal pain. RISKS: Risks, benefits, alternatives, and limitations including, but not limited to infection, bleeding, perforation, false positives, and false negatives were explained to the patient, and they wished to proceed. DESCRIPTION OF PROCEDURE: The patient was placed in left lateral decubitus position. The EGD scope was introduced and advanced atraumatically to the 2nd part of the duodenum. No evidence of duodenitis or ulceration was noted. Within the stomach itself, no ulceration. The patient did have gastritis, would be described as mild to moderate without any evidence of active bleeding. The GE junction was normal. No hiatal hernia. The esophagus was also normal. The air was removed from the stomach. The patient tolerated the procedure well. Kashmir Nichols MD /[id number]
== END 2020-09-18 08:48 | disposition home or self-care (01) ==
LOC: JP.SDS 06:43
PROVIDERS: ATTEND Surgery
DX: K29.70 Gastritis, unspecified, without bleeding (principal); J45.909 Unspecified asthma, uncomplicated; I50.9 Heart failure, unspecified; I44.2 Atrioventricular block, complete
CPT/HCPCS: 43235; J1642; J2250; J2405; J2704; J3010; J7030

== ENCOUNTER 2021-01-07 20:08 | Emergency (ER) | payer MEDICAID ==
[2021-01-07] MEDS ORDERED: diphenhydrAMINE 25 MG Cap PO ONE (20:22)
[2021-01-07] MEDS ORDERED: EPINEPHrine 1 MG/ML SDV SUBCUT ONE (20:22)
[2021-01-07] MEDS ORDERED: diphenhydrAMINE 50 MG/ML SDV IVPUSH ONE (20:22)
[2021-01-07] MEDS ORDERED: methylPREDNISolone Sodium Succinate 125 MG/2 ML SDV IVPUSH ONE (20:23)
[2021-01-07] MEDS ORDERED: Sodium Chloride 0.9% 1,000 ML IV SCH (20:30)
--- NOTE | 2021-01-07 20:41 | EDM.PDOC ---
ED HPI GENERAL MEDICAL PROBLEM - General Chief Complaint: Allergic Reaction Stated Complaint: hives from injection, wheezy Time Seen by Provider: 01/07/21 20:49 Source of Information: Reports: Patient History Limitations: Reports: No Limitations - History of Present Illness INITIAL COMMENTS - FREE TEXT/NARRATIVE: pt arrived very sob. red all over. She has had the swelling around the site of the xolair injection that she received today. Pt has not had swelling around the injection site in the past. Onset: Today, Sudden Duration: Minutes:, Other (pt became more and more sob. ) Location: Reports: Generalized, Other (pt was red all over. Sob and she had alot of swelling around the injection site. ) Associated Symptoms: Reports: Cough, Rash, Shortness of Breath, Weakness - Related Data Allergies Allergy/AdvReac Type Severity Reaction Status Date / Time blue dye Allergy Severe Anaphylactic Verified 01/07/21 20:38 Shock flecainide Allergy Severe Anaphylactic Verified 01/07/21 20:38 Shock Penicillins Allergy Severe Anaphylactic Verified 01/07/21 20:38 Shock propafenone Allergy Severe Anaphylactic Verified 01/07/21 20:38 Shock Sulfa (Sulfonamide Allergy Severe Anaphylactic Verified 01/07/21 20:38 Antibiotics) Shock yellow dye Allergy Severe Anaphylactic Verified 01/07/21 20:38 Shock dofetilide Allergy Cannot Verified 01/07/21 20:38 Remember latex Allergy Rash Verified 01/07/21 20:38 nitrofurantoin Allergy Rash Verified 01/07/21 20:38 [From Macrobid] codeine AdvReac Vomiting Verified 01/07/21 20:38 Home Meds: Home Meds Estrogens, Conjugated [Premarin] 2 tab PO BID 06/14/19 [History] Levothyroxine Sodium [Synthroid] 200 mcg PO ACBREAKFAST 06/14/19 [History] buPROPion HCL [Bupropion Xl] 300 mg PO DAILY 06/14/19 [History] Acetaminophen [Tylenol] 325 mg PO DAILY PRN 10/13/19 [History] EPINEPHrine [Epinephrine] 0.3 mg IM ASDIRECTED PRN 10/13/19 [History] Omeprazole 40 mg PO DAILY PRN 10/13/19 [History] Voriconazole [Vfend IV] 250 mg IV BID 02/22/20 [History] Albuterol Sulfate [Proair Hfa] 2 puff IH Q4HR PRN 09/17/20 [History] Albuterol [Proventil Neb Soln] 0.63 mg NEB Q6H PRN 09/17/20 [History] Budesonide 1 mg IH BID PRN 09/17/20 [History] Ibuprofen 800 mg PO Q6HR PRN 09/17/20 [History] Montelukast [Singulair] 10 mg PO BEDTIME 09/17/20 [History] Arformoterol [Brovana] 2 ml INH BID 01/07/21 [History] Phentermine HCl 1 cap PO DAILY 01/07/21 [History] Rivaroxaban [Xarelto] 20 mg PO DAILY 01/07/21 [History] Tiotropium [place] [Spiriva Respimat] 2 puff INH ONETIME 01/07/21 [History] Past Medical History HEENT History: Reports: Allergic Rhinitis, Impaired Vision Cardiovascular History: Reports: Afib, Heart Failure, [place], Pacemaker, Prior Car diac Arrest Other Cardiovascular History: chronic v-fib complete heart block, paroxysmal atrial tachycardia, hx SVT. 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: Musculoskeletal History: Reports: Fracture Neurological History: Reports: Headaches, Chronic Psychiatric History: Reports: Mood Swings, OCD Endocrine/Metabolic History: Reports: Other (See Below) Other Endocrine/Metabolic History: thyroid removed, hypoglycemia Oncologic (Cancer) History: Reports: Ovarian, Squamous Cell Carcinoma, Thyroid Dermatologic History: Reports: Other (See Below) 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 - Infectious Disease History Infectious Disease History: Reports: MRSA, Shingles Other Infectious Disease History: bronchopulmonary aspergilliosis - Past Surgical History HEENT Surgical History: Reports: Adenoidectomy, Naso-Sinus Surgery, Tonsillectomy Other HEENT Surgeries/Procedures: nasal polyps Cardiovascular Surgical History: Reports: Cardiac Ablation, Pacer, Other (See Below) Other Cardiovascular Surgeries/Procedures: cardiac surgery Respiratory Surgical History: Reports: None GI Surgical History: Reports: Appendectomy, Cholecystectomy, EGD Female Surgical History: Reports: Hysterectomy, Salpingo-Oophorectomy Endocrine Surgical History: Reports: Thyroidectomy Neurological Surgical History: Reports: Lumbar Spine, Spinal Fusion Musculoskeletal Surgical History: Reports: Other (See Below) Other Musculoskeletal Surgeries/Procedures:: foot surgery Oncologic Surgical History: Reports: None Dermatological Surgical History: Reports: Other (See Below) Social & Family History - Family History Family Medical History: No Pertinent Family History Cardiac: Reports: CAD Oncologic: Reports: Lung - Caffeine Use Caffeine Use: Reports: Soda Other Caffeine Use: 1 per day ED ROS ALLERGIC REACTION - Review of Systems Review Of Systems: See Below Constitutional: Reports: Weakness HEENT: Reports: No Symptoms Respiratory: Reports: Shortness of Breath, Wheezing, Cough Cardiovascular: Reports: No Symptoms Endocrine: Reports: No Symptoms GI/Abdominal: Reports: No Symptoms : Reports: No Symptoms Musculoskeletal: Reports: No Symptoms Skin: Reports: Other ( redness over the entire body. ) Neurological: Reports: No Symptoms Psychiatric: Reports: Anxiety ED EXAM GENERAL NO PERIP PULSE - Physical Exam Exam: See Below Text/Narrative:: pt arrived with sob, total body rash and very anxious. She had received the xolair shot today. She had swelling around the site of injection. Exam Limited By: No Limitations General Appearance: Alert, Anxious, Moderate Distress Ears: Normal TMs Nose: Normal Inspection Throat/Mouth: Normal Inspection Head: Atraumatic Neck: Normal Inspection Respiratory/Chest: Decreased Breath Sounds, Wheezing Cardiovascular: Regular Rate, Rhythm, Tachycardia GI/Abdominal: Soft, Non-Tender Rectal (Female) Exam: Deferred Back Exam: Normal Inspection Extremities: Normal Inspection Neurological: Alert, Oriented, Normal Cognition Psychiatric: Anxious Course - Vital Signs Last Recorded V/S: Last Vital Signs Temp 36.1 C 01/07/21 20:33 Pulse 76 01/07/21 20:54 Resp 12 01/07/21 20:54 BP 137/65 01/07/21 20:54 Pulse Ox 96 01/07/21 20:54 - Orders/Labs/Meds Orders: Active Orders 24 hr Category Date Time Status Sodium Chloride 0.9% [Normal Saline] 1,000 ml Med 01/07/21 20:30 Active IV ASDIRECTED Medication Orders Sodium Chloride (Normal Saline) 1,000 mls @ 500 mls/hr IV ASDIRECTED ALRFEDO Last Admin: 01/07/21 20:28 Dose: 500 mls/hr Documented by: HENDLIS Meds: Medications Generic Name Dose Route Start Last Admin Trade Name [place] PRN Reason Stop Dose Admin Sodium Chloride 1,000 mls @ 500 mls/hr 01/07/21 20:30 01/07/21 20:28 Normal Saline IV 500 mls/hr ASDIRECTED ALFREDO Administration Discontinued Medications Generic Name Dose Route Start Last Admin Trade Name [place] PRN Reason Stop Dose Admin Diphenhydramine HCl 25 mg 01/07/21 20:22 01/07/21 20:28 Diphenhydramine 25 Mg Cap PO 01/07/21 20:23 25 mg ONETIME ONE Administration Diphenhydramine HCl 25 mg 01/07/21 20:22 01/07/21 20:24 Diphenhydramine 50 Mg/Ml Sdv IVPUSH 01/07/21 20:23 25 mg ONETIME ONE Administration Epinephrine HCl 0.3 mg 01/07/21 20:22 01/07/21 20:24 Epinephrine 1 Mg/Ml Sdv SUBCUT 01/07/21 20:23 0.3 mg ONETIME ONE Administration Methylprednisolone Sodium Succinate 125 mg 01/07/21 20:23 01/07/21 20:25 Methylprednisolone Sodium Succinate 125 Mg/2 Ml Sdv IVPUSH 01/07/21 20:24 125 mg ONETIME ONE Administration - Re-Assessments/Exams Free Text/Narrative Re-Assessment/Exam: 01/07/21 20:54 pt was in the midst of a acute allergic reaction. She was given epi subq .3. solumedrol 125 iv, benadryl 25 iv, fluids. Pt did respond nicely to this. Departure - Departure Time of Disposition: 21:01 Disposition: Home, Self-Care 01 Condition: Fair Clinical Impression: Allergic reaction caused by a drug - Discharge Information Referrals: Chepe Cleveland Sr, MD [Primary Care Provider] - Forms: ED Department Discharge Care Plan Goals: no further xolair injections because of the acute reaction, benadryl 50 mg q6h for the next 24 hours, rtc if any increased problems. Sepsis Event Note (ED) - Evaluation Sepsis Screening Result: No Definite Risk - Focused Exam Vital Signs: Vital Signs Temp Pulse Resp BP Pulse Ox 01/07/21 20:54 76 12 137/65 96 01/07/21 20:33 36.1 C 105 H 20 147/54 H 94 L 01/07/21 20:16 36.1 C 105 H 20 147/54 H 94 L - My Orders Last 24 Hours: My Active Orders 01/07/21 20:30 Sodium Chloride 0.9% [Normal Saline] 1,000 ml IV ASDIRECTED - Assessment/Plan Last 24 Hours: My Active Orders 01/07/21 20:30 Sodium Chloride 0.9% [Normal Saline] 1,000 ml IV ASDIRECTED
== END 2021-01-07 21:31 | disposition home or self-care (01) ==
LOC: JP.ED 20:08
DX: L27.0 Generalized skin eruption due to drugs and medicaments taken internally (principal); T48.6X5A Adverse effect of antiasthmatics, initial encounter; I48.91 Unspecified atrial fibrillation; K21.9 Gastro-esophageal reflux disease without esophagitis; I50.9 Heart failure, unspecified; I25.2 Old myocardial infarction; J45.909 Unspecified asthma, uncomplicated; Z91.041 Radiographic dye allergy status; Z88.0 Allergy status to penicillin; Z88.8 Allergy status to other drugs, medicaments and biological substances; Z88.2 Allergy status to sulfonamides; Z91.040 Latex allergy status; Z88.1 Allergy status to other antibiotic agents; Z88.5 Allergy status to narcotic agent; Z79.01 Long term (current) use of anticoagulants; Z79.899 Other long term (current) drug therapy
CPT/HCPCS: 96372; 96374; 96375; 99284; A9270; J0171; J1200; J2930; J7030; 99283

== ENCOUNTER 2021-01-08 19:38 | Emergency (ER) | payer MEDICAID ==
[2021-01-08] MEDS ORDERED: Sodium Chloride 0.9% Inhalation Soln 3 ML Neb INH PRN (19:49)
[2021-01-08] MEDS ORDERED: Racepinephrine 2.25% 0.5 ML Neb Soln NEB ONE (19:49)
--- NOTE | 2021-01-08 20:33 | EDM.PDOC ---
ED HPI GENERAL MEDICAL PROBLEM - General Chief Complaint: Allergic Reaction Stated Complaint: ALLERGIC REACTION, WHEEZY Time Seen by Provider: 01/08/21 19:50 Source of Information: Reports: Patient, Family History Limitations: Reports: No Limitations - History of Present Illness INITIAL COMMENTS - FREE TEXT/NARRATIVE: 45-year-old female with chronic pulmonary issues including aspergillosis, asthma, chronic reactive airways and numerous allergies received his Xolair injection within the last 48 hours and was seen last night in the emergency room with "an acute allergic reaction". She responded well to an EpiPen, Benadryl, and was eventually given 125 mg of Solu-Medrol. Tonight she was exposed to some vaping at home and she felt like she was starting to have another reaction with hoarseness, shortness of breath, and erythema of the skin. She gave herself an EpiPen and took some Benadryl and came in to be seen. On arrival she still had some diffuse erythema of the trunk and extremities but no significant hives, some scattered expiratory wheezes and slight stridorous sounds but vitals were stable. No fever. She is concerned she may have had a reaction to the Solu- Medrol but she was also exposed for the first time today to some vaping solution from her visiting mother. Onset: Sudden (Symptoms became worse fairly suddenly within the last hour) Associated Symptoms: Reports: Cough, Malaise, Shortness of Breath. Denies: Confusion, Chest Pain, Fever/Chills, Nausea/Vomiting - Related Data Allergies Allergy/AdvReac Type Severity Reaction Status Date / Time blue dye Allergy Severe Anaphylactic Verified 01/08/21 19:50 Shock flecainide Allergy Severe Anaphylactic Verified 01/08/21 19:50 Shock Penicillins Allergy Severe Anaphylactic Verified 01/08/21 19:50 Shock propafenone Allergy Severe Anaphylactic Verified 01/08/21 19:50 Shock Sulfa (Sulfonamide Allergy Severe Anaphylactic Verified 01/08/21 19:50 Antibiotics) Shock yellow dye Allergy Severe Anaphylactic Verified 01/08/21 19:50 Shock dofetilide Allergy Cannot Verified 01/08/21 19:50 Remember latex Allergy Rash Verified 01/08/21 19:50 nitrofurantoin Allergy Rash Verified 01/08/21 19:50 [From Macrobid] omalizumab [From Xolair] Allergy Anaphylactic Verified 01/08/21 19:50 Shock codeine AdvReac Vomiting Verified 01/08/21 19:50 Home Meds: Home Meds Estrogens, Conjugated [Premarin] 2 tab PO BID 06/14/19 [History] Levothyroxine Sodium [Synthroid] 200 mcg PO ACBREAKFAST 06/14/19 [History] buPROPion HCL [Bupropion Xl] 300 mg PO DAILY 06/14/19 [History] Acetaminophen [Tylenol] 325 mg PO DAILY PRN 10/13/19 [History] EPINEPHrine [Epinephrine] 0.3 mg IM ASDIRECTED PRN 10/13/19 [History] Omeprazole 40 mg PO DAILY PRN 10/13/19 [History] Voriconazole [Vfend IV] 250 mg IV BID 02/22/20 [History] Albuterol Sulfate [Proair Hfa] 2 puff IH Q4HR PRN 09/17/20 [History] Albuterol [Proventil Neb Soln] 0.63 mg NEB Q6H PRN 09/17/20 [History] Budesonide 1 mg IH BID PRN 09/17/20 [History] Ibuprofen 800 mg PO Q6HR PRN 09/17/20 [History] Montelukast [Singulair] 10 mg PO BEDTIME 09/17/20 [History] Arformoterol [Brovana] 2 ml INH BID 01/07/21 [History] Phentermine HCl 1 cap PO DAILY 01/07/21 [History] Rivaroxaban [Xarelto] 20 mg PO DAILY 01/07/21 [History] Tiotropium [place] [Spiriva Respimat] 2 puff INH ONETIME 01/07/21 [History] Past Medical History HEENT History: Reports: Allergic Rhinitis, Impaired Vision Cardiovascular History: Reports: Afib, Heart Failure, [place], Pacemaker, Prior Cardiac Arrest Other Cardiovascular History: chronic v-fib complete heart block, paroxysmal atrial tachycardia, hx SVT. 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: Musculoskeletal History: Reports: Fracture Neurological History: Reports: Headaches, Chronic Psychiatric History: Reports: Mood Swings, OCD Endocrine/Metabolic History: Reports: Other (See Below) Other Endocrine/Metabolic History: thyroid removed, hypoglycemia Oncologic (Cancer) History: Reports: Ovarian, Squamous Cell Carcinoma, Thyroid Dermatologic History: Reports: Other (See Below) 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 - Infectious Disease History Infectious Disease History: Reports: MRSA, Shingles Other Infectious Disease History: bronchopulmonary aspergilliosis - Past Surgical History HEENT Surgical History: Reports: Adenoidectomy, Naso-Sinus Surgery, Tonsillectomy Other HEENT Surgeries/Procedures: nasal polyps Cardiovascular Surgical History: Reports: Cardiac Ablation, Pacer, Other (See Below) Other Cardiovascular Surgeries/Procedures: cardiac surgery Respiratory Surgical History: Reports: None GI Surgical History: Reports: Appendectomy, Cholecystectomy, EGD Female Surgical History: Reports: Hysterectomy, Salpingo-Oophorectomy Endocrine Surgical History: Reports: Thyroidectomy Neurological Surgical History: Reports: Lumbar Spine, Spinal Fusion Musculoskeletal Surgical History: Reports: Other (See Below) Other Musculoskeletal Surgeries/Procedures:: foot surgery Oncologic Surgical History: Reports: None Dermatological Surgical History: Reports: Other (See Below) Social & Family History - Family History Family Medical History: No Pertinent Family History Cardiac: Reports: CAD Oncologic: Reports: Lung - Tobacco Use Tobacco Use Status *Q: Never Tobacco User - Caffeine Use Caffeine Use: Reports: Soda Other Caffeine Use: 1 per day - Recreational Drug Use Recreational Drug Use: No ED ROS ALLERGIC REACTION - Review of Systems Review Of Systems: See Below Constitutional: Reports: Malaise. Denies: Fever, Chills HEENT: Reports: Other (Feels like her throat is closing, hoarse) Respiratory: Reports: Shortness of Breath, Wheezing, Cough. Denies: Sputum Cardiovascular: Denies: Chest Pain GI/Abdominal: Denies: Abdominal Pain, Nausea, Vomiting Skin: Reports: Erythema (Diffuse erythema) Neurological: Reports: No Symptoms Psychiatric: Reports: No Symptoms ED EXAM GENERAL NO PERIP PULSE - Physical Exam Exam: See Below Text/Narrative:: Initially the patient looks stable but very anxious and did appear she was probably having some systemic allergic-like symptoms with some diffuse mild erythema of the extremities and trunk, a persistent dry cough and some slight hoarseness in her voice. O2 saturations however were 92 to 96%, respirations were normal. Blood pressure was normal. Exam Limited By: No Limitations General Appearance: Alert, No Apparent Distress (Uncomfortable but not acutely distressed) Throat/Mouth: Normal Oropharynx (Visual inspection of the oropharynx was normal, there was no uvular or soft tissue swelling) Respiratory/Chest: No Respiratory Distress, Other (There is a few scattered expiratory wheezes but overall excellent air movement) Cardiovascular: Regular Rate, Rhythm. No: Tachycardia Extremities: Normal Inspection (No edema or significant swelling) Neurological: Alert, Oriented Skin Exam: Warm, Dry, Erythema (There was some very mild erythema still present on the upper back, chest, upper extremities but no hives or lesions) Course - Vital Signs Last Recorded V/S: Last Vital Signs Temp 95.4 F L 01/08/21 19:44 Pulse 59 L 01/08/21 19:44 Resp 16 01/08/21 19:44 BP 124/54 L 01/08/21 19:44 Pulse Ox 97 01/08/21 19:44 - Orders/Labs/Meds Meds: Medications Discontinued Medications Generic Name Dose Route Start Last Admin Trade Name Freq PRN Reason Stop Dose Admin Racepinephrine 0.5 ml 01/08/21 19:49 01/08/21 19:55 Racepinephrine 2.25% 0.5 Ml Neb Soln NEB 01/08/21 19:50 0.5 ml ONETIME ONE Administration Sodium Chloride 3 ml 01/08/21 19:49 01/08/21 19:55 Sodium Chloride 0.9% Inhalation Soln 3 Ml Neb INH 3 ml ASDIRECTED PRN Administration mix with racepinephrine neb - Re-Assessments/Exams Free Text/Narrative Re-Assessment/Exam: 01/08/21 20:40 Patient was observed and given a racemic epinephrine nebulizer. Within 30 minutes she continued to improve, O2 sats are 96%, lungs were clear and the swelling sensation in her throat felt like it was resolved. 01/08/21 21:02 After 1-1/2 hours the patient remained comfortable, still some erythema of the upper chest and face but no hives. This still may be an effect from the epinephrine as well. She will continue her regular medications and return if needed, avoid any of the vaping discharge in the future. Departure - Departure Time of Disposition: 21:11 Disposition: Home, Self-Care 01 Clinical Impression: Allergic reaction caused by a drug Qualifiers: Encounter type: initial encounter Qualified Code(s): T78.40XA - Allergy, unspecified, initial encounter - Discharge Information Instructions: Allergies, Adult, [id number] Referrals: Chepe Cleveland Sr, MD [Primary Care Provider] - Forms: ED Department Discharge Care Plan Goals: Continue your regular medications, repeat Benadryl as needed and return anytime if symptoms are worsening, especially difficulty breathing. Sepsis Event Note (ED) - Evaluation Sepsis Screening Result: No Definite Risk - Focused Exam Vital Signs: Vital Signs Temp Pulse Resp BP Pulse Ox 01/08/21 19:44 95.4 F L 59 L 16 124/54 L 97
== END 2021-01-08 21:11 | disposition home or self-care (01) ==
LOC: JP.ED 19:38
DX: R21 Rash and other nonspecific skin eruption (principal); T48.6X5A Adverse effect of antiasthmatics, initial encounter; I25.2 Old myocardial infarction; Z88.0 Allergy status to penicillin; Z88.5 Allergy status to narcotic agent; Z91.040 Latex allergy status; Z91.09 Other allergy status, other than to drugs and biological substances; Z88.2 Allergy status to sulfonamides; Z88.1 Allergy status to other antibiotic agents; Z88.8 Allergy status to other drugs, medicaments and biological substances; Z95.0 Presence of cardiac pacemaker
CPT/HCPCS: 94640; 99284-25

== ENCOUNTER 2021-05-30 16:47 | Emergency (ER) | payer MEDICAID ==
[2021-05-30] MEDS ORDERED: Levalbuterol HCl 1.25 MG/3 ML Neb NEB ONE (18:41)
--- NOTE | 2021-05-30 18:45 | EDM.PDOC ---
ED HPI GENERAL MEDICAL PROBLEM - General Chief Complaint: Respiratory Problem Stated Complaint: SOB Time Seen by Provider: 05/30/21 18:20 Source of Information: Reports: Patient, RN Notes Reviewed History Limitations: Reports: No Limitations - History of Present Illness INITIAL COMMENTS - FREE TEXT/NARRATIVE: 46-year-old female presents emergency department day complaint shortness of breath, she has a known history of chronic aspergillosis pneumonia is followed by pulmonary medicine [facility]. She states over the last couple days she has been more more short of breath she recently completed her course of antifungal medication. She states after completing the course she has noticed more wheezing she does have a variety of inhalers that she uses with without giving much relief. She did contact her player services representative recommend report to the emergency department for further evaluation. She denies any fevers chest pain no nausea vomiting - Related Data Allergies Allergy/AdvReac Type Severity Reaction Status Date / Time blue dye Allergy Severe Anaphylactic Verified 01/08/21 19:50 Shock flecainide Allergy Severe Anaphylactic Verified 01/08/21 19:50 Shock Penicillins Allergy Severe Anaphylactic Verified 01/08/21 19:50 Shock propafenone Allergy Severe Anaphylactic Verified 01/08/21 19:50 Shock Sulfa (Sulfonamide Allergy Severe Anaphylactic Verified 01/08/21 19:50 Antibiotics) Shock yellow dye Allergy Severe Anaphylactic Verified 01/08/21 19:50 Shock dofetilide Allergy Cannot Verified 01/08/21 19:50 Remember latex Allergy Rash Verified 01/08/21 19:50 nitrofurantoin Allergy Rash Verified 01/08/21 19:50 [From Macrobid] omalizumab [From Xolair] Allergy Anaphylactic Verified 01/08/21 19:50 Shock codeine AdvReac Vomiting Verified 01/08/21 19:50 Home Meds: Home Meds Estrogens, Conjugated [Premarin] 2 tab PO BID 06/14/19 [History] Levothyroxine Sodium [Synthroid] 200 mcg PO ACBREAKFAST 06/14/19 [History] buPROPion HCL [Bupropion Xl] 300 mg PO DAILY 06/14/19 [History] Acetaminophen [Tylenol] 325 mg PO DAILY PRN 10/13/19 [History] EPINEPHrine [Epinephrine] 0.3 mg IM ASDIRECTED PRN 10/13/19 [History] Omeprazole 40 mg PO DAILY PRN 10/13/19 [History] Voriconazole [Vfend IV] 250 mg IV BID 02/22/20 [History] Albuterol Sulfate [Proair Hfa] 2 puff IH Q4HR PRN 09/17/20 [History] Albuterol [Proventil Neb Soln] 0.63 mg NEB Q6H PRN 09/17/20 [History] Budesonide 1 mg IH BID PRN 09/17/20 [History] Ibuprofen 800 mg PO Q6HR PRN 09/17/20 [History] Montelukast [Singulair] 10 mg PO BEDTIME 09/17/20 [History] Arformoterol [Brovana] 2 ml INH BID 01/07/21 [History] Phentermine HCl 1 cap PO DAILY 01/07/21 [History] Rivaroxaban [Xarelto] 20 mg PO DAILY 01/07/21 [History] Tiotropium [place] [Spiriva Respimat] 2 puff INH ONETIME 01/07/21 [History] Arformoterol [Brovana] 1 ampule INH BID 05/30/21 [History] Levalbuterol Tartrate [Xopenex HFA] 1 puff INH Q6H #1 ea 05/30/21 [Rx] Past Medical History HEENT History: Reports: Allergic Rhinitis, Impaired Vision Cardiovascular History: Reports: Afib, CAD, Heart Failure, [place], Pacemaker, Prior Cardiac Arrest Other Cardiovascular History: chronic v-fib complete heart block, paroxysmal atrial tachycardia, hx SVT. 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: Musculoskeletal History: Reports: Fracture Neurological History: Reports: Headaches, Chronic Psychiatric History: Reports: Mood Swings, OCD Endocrine/Metabolic History: Reports: Other (See Below) Other Endocrine/Metabolic History: thyroid removed, hypoglycemia Oncologic (Cancer) History: Reports: Ovarian, Squamous Cell Carcinoma, Thyroid Dermatologic History: Reports: Other (See Below) 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 - Infectious Disease History Infectious Disease History: Reports: MRSA, Shingles Other Infectious Disease History: bronchopulmonary aspergilliosis - Past Surgical History HEENT Surgical History: Reports: Adenoidectomy, Naso-Sinus Surgery, Tonsillectomy Other HEENT Surgeries/Procedures: nasal polyps Cardiovascular Surgical History: Reports: Cardiac Ablation, Pacer, Other (See Below) Other Cardiovascular Surgeries/Procedures: cardiac surgery Respiratory Surgical History: Reports: None GI Surgical History: Reports: Appendectomy, Cholecystectomy, EGD Female Surgical History: Reports: Hysterectomy, Salpingo-Oophorectomy Endocrine Surgical History: Reports: Thyroidectomy Neurological Surgical History: Reports: Lumbar Spine, Spinal Fusion Musculoskeletal Surgical History: Reports: Other (See Below) Other Musculoskeletal Surgeries/Procedures:: foot surgery Oncologic Surgical History: Reports: None Dermatological Surgical History: Reports: Other (See Below) Social & Family History - Family History Family Medical History: No Pertinent Family History Cardiac: Reports: CAD Oncologic: Reports: Lung - Tobacco Use Tobacco Use Status *Q: Never Tobacco User Second Hand Smoke Exposure: No - Caffeine Use Caffeine Use: Reports: None Other Caffeine Use: 1 per day - Recreational Drug Use Recreational Drug Use: No ED ROS GENERAL - Review of Systems Review Of Systems: See Below Constitutional: Denies: Fever, Chills HEENT: Reports: No Symptoms Respiratory: Reports: Shortness of Breath, Wheezing (Today), Cough. Denies: Sputum Cardiovascular: Reports: No Symptoms GI/Abdominal: Reports: No Symptoms ED EXAM, GENERAL - Physical Exam Exam: See Below Exam Limited By: No Limitations General Appearance: Alert, WD/WN, No Apparent Distress Respiratory/Chest: No Respiratory Distress, Chest Non-Tender, Decreased Breath Sounds, Wheezing Cardiovascular: Regular Rate, Rhythm, No Murmur Course - Vital Signs Last Recorded V/S: Last Vital Signs Temp 97 F 05/30/21 17:03 Pulse 94 05/30/21 18:24 Resp 22 H 05/30/21 17:03 BP 113/73 05/30/21 18:24 Pulse Ox 96 05/30/21 18:24 - Orders/Labs/Meds Orders: Active Orders 24 hr Category Date Time Status RT Aerosol Therapy [RC] ASDIRECTED Care 05/30/21 18:41 Active Labs: Laboratory Tests 05/30/21 Range/Units 17:55 SARS CoV-2 RNA Rapid PEPITO Negative Meds: Medications Discontinued Medications Generic Name Dose Route Start Last Admin Trade Name Freq PRN Reason Stop Dose Admin Levalbuterol HCl 1.25 mg 05/30/21 18:41 05/30/21 19:03 Levalbuterol Hcl 1.25 Mg/3 Ml Neb NEB 05/30/21 18:42 1.25 mg ONETIME ONE Administration Departure - Departure Time of Disposition: 19:20 Disposition: Home, Self-Care 01 Condition: Fair Clinical Impression: Dyspnea Qualifiers: Dyspnea type: shortness of breath Qualified Code(s): R06.02 - Shortness of breath; R06.00 - Dyspnea, unspecified; R06.01 - Orthopnea - Discharge Information Prescriptions: Levalbuterol Tartrate [Xopenex HFA] 1 puff INH Q6H #1 ea Referrals: Chepe Cleveland Sr, MD [Primary Care Provider] - Forms: ED Department Discharge Additional Instructions: Please contact your player services representative in the morning, your Xopenex prescription has been faxed to [facility], recommend start your prednisone taper, call return to the emergency department worsening of symptoms Sepsis Event Note (ED) - Evaluation Sepsis Screening Result: No Definite Risk - Focused Exam Vital Signs: Vital Signs Temp Pulse Resp BP Pulse Ox 05/30/21 18:24 94 113/73 96 05/30/21 17:03 97 F 98 22 H 108/65 99 - My Orders Last 24 Hours: My Active Orders 05/30/21 18:41 RT Aerosol Therapy [RC] ASDIRECTED - Assessment/Plan Last 24 Hours: My Active Orders 05/30/21 18:41 RT Aerosol Therapy [RC] ASDIRECTED Plan: Assessment Acuity = acute Site and laterality = dyspnea complicated patient with history of chronic aspergillosis infection Etiology = reactive airway disease Manifestations = none Location of injury = Home Lab values = Covid negative Plan Did not try treatment Xopenex which provided some relief she was able to breathe better she does have steroids at home which she will initiate she is to contact her player services representative in the morning prescription sent to [facility] This note was dictated using [employer] voice recognition software please call with any questions on syntax or grammar.
== END 2021-05-30 19:50 | disposition home or self-care (01) ==
LOC: JP.ED 16:47
DX: R06.02 Shortness of breath (principal); R06.01 Orthopnea; I48.91 Unspecified atrial fibrillation; I25.2 Old myocardial infarction; I50.9 Heart failure, unspecified; E78.00 Pure hypercholesterolemia, unspecified; K21.9 Gastro-esophageal reflux disease without esophagitis; Z95.0 Presence of cardiac pacemaker; Z88.0 Allergy status to penicillin; Z91.09 Other allergy status, other than to drugs and biological substances; Z88.8 Allergy status to other drugs, medicaments and biological substances; Z88.2 Allergy status to sulfonamides; Z88.5 Allergy status to narcotic agent; Z91.040 Latex allergy status; Z88.1 Allergy status to other antibiotic agents; Z20.822 Contact with and (suspected) exposure to COVID-19
CPT/HCPCS: 87635; 94640; 99285; J7612; U0002

== ENCOUNTER 2021-07-01 09:15 | Day surgery (SDC) | payer MEDICAID ==
[2021-07-01] MEDS ORDERED: Dextrose 5%-Lactated Ringers 1,000 ML IV SCH (11:00)
[2021-07-01] MEDS ORDERED: fentaNYL 100 MCG/2 ML SDV ONE (11:11)
[2021-07-01] MEDS ORDERED: Propofol 200 MG/20 ML SDV ONE ×2 (11:12→12:23)
[2021-07-01] MEDS ORDERED: Midazolam 1 MG/ML 2 ML SDV ONE (11:12)
[2021-07-01] MEDS ORDERED: Levofloxacin/Dextrose 5%-Water 500 MG in Premix Bag 1 BAG IV ONE (12:15)
[2021-07-01] MEDS ORDERED: Ondansetron 4 MG/2 ML SDV ONE (12:36)
[2021-07-01] MEDS ORDERED: Dexamethasone 4 MG/ML SDV ONE (12:36)
--- NOTE | 2021-07-13 17:16 | OR ---
DATE OF PROCEDURE: 07/01/2021 SURGEON: Manish Call MD PREOPERATIVE DIAGNOSIS: Bard port no longer in use. POSTOPERATIVE DIAGNOSIS: Bard port no longer in use. OPERATIVE PROCEDURE: Removal of Bard port. ANESTHESIA: Local plus IV sedation. INDICATION FOR PROCEDURE: This is a 46-year-old who has now completed chemotherapy and not requiring use of her Bard port anymore. It is located in the right subclavian area and she wishes to have it removed. Potential risks including bleeding and infection were reviewed and the patient wishes to proceed. DETAILS OF PROCEDURE: The patient was taken to the operating room and placed in a supine position. After IV sedation was administered, the upper chest and neck areas were prepped and draped, and the skin and subcutaneous tissue over the port was then anesthetized with 1% lidocaine mixed with Marcaine. The incision was made over the port and dissected down. The port was then sequentially freed up from the surrounding soft tissues as was the point where the catheter . Once that was freed up, pursestring stitch at the catheter exit site and the soft tissues around it placed with 3-0 Vicryl stitch. The catheter was withdrawn without difficulty as the pursestring stitch was drawn up to prevent bleeding or air embolism. As this was tied, the incision was then closed with 3-0 and 4-0 Vicryl stitch deep and a dressing applied. The patient was taken to the recovery room in satisfactory condition. Manish Call MD Job #: [id number]
== END 2021-07-01 13:51 | disposition home or self-care (01) ==
LOC: JP.SDS 09:15
PROVIDERS: ATTEND Surgery
DX: Z45.2 Encounter for adjustment and management of vascular access device (principal); J45.909 Unspecified asthma, uncomplicated
CPT/HCPCS: 36590; J1100; J1956; J2250; J2405; J2704; J3010; J3490; J7121

== ENCOUNTER 2021-07-22 07:45 | Day surgery (SDC) | payer MEDICAID ==
[2021-07-22] MEDS ORDERED: Midazolam 1 MG/ML 2 ML SDV ONE (07:52)
[2021-07-22] MEDS ORDERED: fentaNYL 100 MCG/2 ML SDV ONE (07:52)
[2021-07-22] MEDS ORDERED: Propofol 200 MG/20 ML SDV ONE (07:52)
[2021-07-22] MEDS ORDERED: Sodium Chloride 0.9% 1,000 ML IV SCH (08:30)
--- NOTE | 2021-07-22 10:13 | OR ---
DATE OF PROCEDURE: 07/22/2021 SURGEON: Kashmir Nichols MD PROCEDURE: Colonoscopy with hemorrhoid banding. COMPLICATIONS: None. SAND CASTER APPRENTICE: None. ANESTHESIA: MAC. PREOPERATIVE DIAGNOSIS: Gastrointestinal bleeding/screening colonoscopy. POSTOPERATIVE DIAGNOSIS: Gastrointestinal bleeding/screening colonoscopy. RISKS: Risks, benefits, alternatives, and limitations including, but not limited to infection, bleeding, perforation, false positives and false negatives were explained to the patient who wished to proceed. PROCEDURE IN DETAIL: The patient was placed in left lateral decubitus position. Digital rectal exam was performed without abnormality. Scope was introduced and advanced atraumatically to the ileocecal valve. Scope was brought back to the ascending, transverse, descending colon, and retroflexed. No evidence of old or new blood. No masses. No polyps. No diverticulosis. Greater than 8 minutes was spent removing the scope. Prep was acceptable, approximately 90% of the luminal surface could be seen. The hemorrhoid fireperson was then introduced and the largest area of hemorrhoid was identified and banded without difficulty. The patient tolerated the procedure well. Ksahmir Nichols MD /[id number]
== END 2021-07-22 10:27 | disposition home or self-care (01) ==
LOC: JP.SDS 07:45
PROVIDERS: ATTEND Surgery
DX: K64.9 Unspecified hemorrhoids (principal); K92.2 Gastrointestinal hemorrhage, unspecified; J45.909 Unspecified asthma, uncomplicated; Z88.8 Allergy status to other drugs, medicaments and biological substances
CPT/HCPCS: 45398; J2250; J2704; J3010; J7030

== ENCOUNTER 2021-08-15 03:05 | Emergency (ER) | payer MEDICAID ==
[2021-08-15] MEDS ORDERED: diphenhydrAMINE 25 MG Cap PO ONE (03:34)
[2021-08-15] MEDS ORDERED: Famotidine 20 MG Tab PO ONE (03:35)
--- NOTE | 2021-08-15 03:57 | EDM.PDOC ---
ED HPI GENERAL MEDICAL PROBLEM - General Chief Complaint: Allergic Reaction Stated Complaint: REACTION Time Seen by Provider: 08/15/21 03:45 Source of Information: Reports: Patient, Old Records, RN History Limitations: Reports: No Limitations - History of Present Illness INITIAL COMMENTS - FREE TEXT/NARRATIVE: 46 yo female is here with her for hives. Developed an allergic reaction ? to apples she had accidentally ingested in the form of juice earlier in the evening. She took her EPI Pen and got relief and then fell asleep. She says she doesn't have any Benedryl at home. When she awoke about 2 AM tonight her upper lip was swollen and she had scattered hives. She denies trouble breathing or swallowing. Onset: Sudden Onset Date: 08/14/21 Duration: Hour(s):, Waxing/Waning Location: Reports: Generalized Quality: Reports: Other (itchy) Severity: Mild Improves with: Reports: None Worsens with: Reports: Other (? apples) Context: Reports: Other (See HPI) Associated Symptoms: Reports: No Other Symptoms Treatments NUTRITION INTERN: Reports: Other (see below) (Epi hours ago) upper lip Pain Score (Numeric/FACES): 2 - Related Data Allergies Allergy/AdvReac Type Severity Reaction Status Date / Time blue dye Allergy Severe Anaphylactic Verified 08/15/21 03:59 Shock flecainide Allergy Severe Anaphylactic Verified 08/15/21 03:59 Shock omalizumab [From Xolair] Allergy Severe Anaphylactic Verified 08/15/21 03:59 Shock Penicillins Allergy Severe Anaphylactic Verified 08/15/21 03:59 Shock propafenone Allergy Severe Anaphylactic Verified 08/15/21 03:59 Shock Sulfa (Sulfonamide Allergy Severe Anaphylactic Verified 08/15/21 03:59 Antibiotics) Shock yellow dye Allergy Severe Anaphylactic Verified 08/15/21 03:59 Shock dofetilide Allergy Cannot Verified 08/15/21 03:59 Remember latex Allergy Rash Verified 08/15/21 03:59 nitrofurantoin Allergy Rash Verified 08/15/21 03:59 [From Macrobid] salmeterol [From Serevent] Allergy Swelling Verified 08/15/21 03:59 codeine AdvReac Vomiting Verified 08/15/21 03:59 Home Meds: Home Meds Estrogens, Conjugated [Premarin] 2 tab PO BID 06/14/19 [History] Levothyroxine Sodium [Synthroid] 175 mcg PO ACBREAKFAST 06/14/19 [History] buPROPion HCL [Bupropion Xl] 300 mg PO DAILY 06/14/19 [History] Acetaminophen [Tylenol] 650 mg PO Q4H PRN 10/13/19 [History] EPINEPHrine [Epinephrine] 0.3 mg IM ASDIRECTED PRN 10/13/19 [History] Omeprazole 40 mg PO DAILY PRN 10/13/19 [History] Albuterol Sulfate [Proair Hfa] 2 puff IH Q4HR PRN 09/17/20 [History] Albuterol [Proventil Neb Soln] 3 ml NEB Q6H PRN 09/17/20 [History] Budesonide 1 mg IH BID PRN 09/17/20 [History] Ibuprofen 800 mg PO Q6HR PRN 09/17/20 [History] Montelukast [Singulair] 10 mg PO BEDTIME 09/17/20 [History] Phentermine HCl 37.5 mg PO DAILY 01/07/21 [History] Arformoterol [Brovana] 2 ml INH BID 05/30/21 [History] Mepolizumab [Nucala] 100 mg SQ Q28D 06/11/21 [History] Tiotropium [place] [Spiriva Respimat] 2 inh INH DAILY 07/17/21 [History] Past Medical History HEENT History: Reports: Allergic Rhinitis, Impaired Vision Cardiovascular History: Reports: Afib, CAD, Heart Failure, [place], Pacemaker, Prior Cardiac Arrest, Other (See Below) Other Cardiovascular History: chronic v-fib complete heart block, paroxysmal atrial tachycardia, hx SVT. 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: Musculoskeletal History: Reports: Fracture, Other (See Below) Other Musculoskeletal History: left wrist fracture 1988 Neurological History: Reports: Headaches, Chronic Psychiatric History: Reports: OCD Endocrine/Metabolic History: Reports: Other (See Below) Other Endocrine/Metabolic History: thyroid removed, hypoglycemia Oncologic (Cancer) History: Reports: Ovarian, Squamous Cell Carcinoma, Thyroid Dermatologic History: Reports: Other (See Below) 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 - Infectious Disease History Infectious Disease History: Reports: MRSA, Shingles, Other (See Below) Other Infectious Disease History: bronchopulmonary aspergilliosis; Covid positive test with no symptoms - Past Surgical History HEENT Surgical History: Reports: Adenoidectomy, Naso-Sinus Surgery, Tonsillectomy Other HEENT Surgeries/Procedures: nasal polyps Cardiovascular Surgical History: Reports: Cardiac Ablation, Pacer, Other (See Below) Other Cardiovascular Surgeries/Procedures: cardiac surgery Respiratory Surgical History: Reports: None GI Surgical History: Reports: Appendectomy, Cholecystectomy, EGD Female Surgical History: Reports: Hysterectomy, Salpingo-Oophorectomy Endocrine Surgical History: Reports: Thyroidectomy Neurological Surgical History: Reports: Lumbar Spine, Spinal Fusion Musculoskeletal Surgical History: Reports: Other (See Below) Other Musculoskeletal Surgeries/Procedures:: foot surgery Oncologic Surgical History: Reports: None Dermatological Surgical History: Reports: Other (See Below) Social & Family History - Family History Family Medical History: No Pertinent Family History Cardiac: Reports: CAD Oncologic: Reports: Lung - Caffeine Use Caffeine Use: Reports: Soda Other Caffeine Use: 1 per day ED ROS ALLERGIC REACTION - Review of Systems Review Of Systems: See Below Constitutional: Reports: No Symptoms HEENT: Reports: Other (upper lip swelling) Respiratory: Reports: No Symptoms Cardiovascular: Reports: No Symptoms Endocrine: Reports: No Symptoms GI/Abdominal: Reports: No Symptoms Musculoskeletal: Reports: No Symptoms Skin: Reports: Pruritis, Rash ED EXAM GENERAL NO PERIP PULSE - Physical Exam Exam: See Below Exam Limited By: No Limitations General Appearance: Alert, WD/WN, No Apparent Distress Eye Exam: Bilateral Eye: Normal Inspection Ears: Normal External Exam, Normal Canal, Hearing Grossly Normal, Normal TMs Nose: Normal Inspection, No Blood Throat/Mouth: Normal Inspection, Normal Oropharynx, Normal Voice, No Airway Compromise. No: Normal Lips (puffy upper lip) Head: Atraumatic, Normocephalic Neck: Normal Inspection Respiratory/Chest: No Respiratory Distress, Lungs Clear, Normal Breath Sounds, No Accessory Muscle Use Cardiovascular: Regular Rate, Rhythm, No Edema. No: Tachycardia Extremities: Normal Inspection Neurological: Alert, Oriented, CN II-XII Intact, Normal Cognition, No Motor/Sensory Deficits Psychiatric: Normal Affect, Normal Mood Skin Exam: Warm, Dry, Intact, Normal Color, Rash (hives, mostly on trunk). No: No Rash Course - Vital Signs Last Recorded V/S: Last Vital Signs Temp 36.7 C 08/15/21 04:05 Pulse 69 08/15/21 04:05 Resp 18 08/15/21 04:05 BP 125/76 08/15/21 04:05 Pulse Ox 98 08/15/21 04:05 - Orders/Labs/Meds Meds: Medications Discontinued Medications Generic Name Dose Route Start Last Admin Trade Name [place] PRN Reason Stop Dose Admin Diphenhydramine HCl 50 mg 08/15/21 03:34 08/15/21 04:02 Diphenhydramine 25 Mg Cap PO 08/15/21 03:35 50 mg ONETIME ONE Administration Famotidine 40 mg 08/15/21 03:35 08/15/21 04:02 Famotidine 20 Mg Tab PO 08/15/21 03:36 40 mg ONETIME ONE Administration - Re-Assessments/Exams Free Text/Narrative Re-Assessment/Exam: 08/15/21 04:41 rash nearly gone as well as itching Departure - Departure Time of Disposition: 04:41 Disposition: Home, Self-Care 01 Condition: Good Clinical Impression: Allergic urticaria - Discharge Information *PRESCRIPTION DRUG MONITORING PROGRAM REVIEWED*: Not Applicable *COPY OF PRESCRIPTION DRUG MONITORING REPORT IN PATIENT JAG: Not Applicable Instructions: Hives, [id number] Referrals: PCP,None [Primary Care Provider] - Forms: ED Department Discharge Additional Instructions: Take diphenhydramine 50 mg every 4 hrs as needed for hives/itching. Use your Epi Pen for severe potentially life threatening reactions. Return as needed. Sepsis Event Note (ED) - Focused Exam Vital Signs: Vital Signs Temp Pulse Resp BP Pulse Ox 08/15/21 04:05 36.7 C 69 18 125/76 98 08/15/21 03:46 36.7 C 69 18 125/76 98
== END 2021-08-15 04:46 | disposition home or self-care (01) ==
LOC: JP.ED 03:05
DX: L50.0 Allergic urticaria (principal); I48.91 Unspecified atrial fibrillation; I25.10 Atherosclerotic heart disease of native coronary artery without angina pectoris; I25.2 Old myocardial infarction; K21.9 Gastro-esophageal reflux disease without esophagitis; Z95.0 Presence of cardiac pacemaker; Z88.5 Allergy status to narcotic agent; Z91.040 Latex allergy status; Z88.2 Allergy status to sulfonamides; Z91.041 Radiographic dye allergy status; Z88.0 Allergy status to penicillin; Z88.8 Allergy status to other drugs, medicaments and biological substances; Z79.899 Other long term (current) drug therapy
CPT/HCPCS: 99283; A9270

== ENCOUNTER 2021-09-02 16:44 | Emergency (ER) | payer MEDICAID ==
--- NOTE | 2021-09-02 18:22 | EDM.PDOC ---
ED HPI GENERAL MEDICAL PROBLEM - General Chief Complaint: Cardiovascular Problem Stated Complaint: CHEST PAIN (HEART FAILURE) Time Seen by Provider: 09/02/21 18:05 Source of Information: Reports: Patient, Family History Limitations: Reports: No Limitations - History of Present Illness INITIAL COMMENTS - FREE TEXT/NARRATIVE: 46-year-old female comes in with intermittent left upper shoulder and back pain for the past 4 days. She is somewhat complicated as she has had a significant WA in the past and is pacemaker dependent. She did call her primary and they ran some studies on her pacemaker not. Day be some intermittent mild tachycardia but overall her pacemaker looks like it is functioning normally. She has no shortness of breath, no fevers or chills, no peripheral edema. The pain seems to be worse when she is being rubbed on her shoulder, but she cannot make it worse by movement. Her primary provider encouraged her to come in just to get a troponin for reassurance and that is all she is really looking for. It is not related to activity. Onset: Gradual Duration: Day(s): (4 days) Location: Reports: Upper Extremity, Left (Posterior left shoulder and neck) Quality: Reports: Ache, Burning Chest Pain Score (Numeric/FACES): 4 - Related Data Allergies Allergy/AdvReac Type Severity Reaction Status Date / Time blue dye Allergy Severe Anaphylactic Verified 09/02/21 17:20 Shock flecainide Allergy Severe Anaphylactic Verified 09/02/21 17:20 Shock omalizumab [From Xolair] Allergy Severe Anaphylactic Verified 09/02/21 17:20 Shock Penicillins Allergy Severe Anaphylactic Verified 09/02/21 17:20 Shock propafenone Allergy Severe Anaphylactic Verified 09/02/21 17:20 Shock Sulfa (Sulfonamide Allergy Severe Anaphylactic Verified 09/02/21 17:20 Antibiotics) Shock yellow dye Allergy Severe Anaphylactic Verified 08/15/21 03:59 Shock dofetilide Allergy Cannot Verified 09/02/21 17:20 Remember latex Allergy Rash Verified 09/02/21 17:20 nitrofurantoin Allergy Rash Verified 09/02/21 17:20 [From Macrobid] salmeterol [From Serevent] Allergy Swelling Verified 08/15/21 03:59 codeine AdvReac Vomiting Verified 08/15/21 03:59 Home Meds: Home Meds Estrogens, Conjugated [Premarin] 2 tab PO BID 06/14/19 [History] Levothyroxine Sodium [Synthroid] 175 mcg PO ACBREAKFAST 06/14/19 [History] buPROPion HCL [Bupropion Xl] 300 mg PO DAILY 06/14/19 [History] Acetaminophen [Tylenol] 650 mg PO Q4H PRN 10/13/19 [History] EPINEPHrine [Epinephrine] 0.3 mg IM ASDIRECTED PRN 10/13/19 [History] Omeprazole 40 mg PO DAILY PRN 10/13/19 [History] Albuterol Sulfate [Proair Hfa] 2 puff IH Q4HR PRN 09/17/20 [History] Albuterol [Proventil Neb Soln] 3 ml NEB Q6H PRN 09/17/20 [History] Budesonide 1 mg IH BID PRN 09/17/20 [History] Ibuprofen 800 mg PO Q6HR PRN 09/17/20 [History] Montelukast [Singulair] 10 mg PO BEDTIME 09/17/20 [History] Phentermine HCl 37.5 mg PO DAILY 01/07/21 [History] Arformoterol [Brovana] 2 ml INH BID 05/30/21 [History] Mepolizumab [Nucala] 100 mg SQ Q28D 06/11/21 [History] Tiotropium [place] [Spiriva Respimat] 2 inh INH DAILY 07/17/21 [History] Rivaroxaban [Xarelto] 20 mg PO BID 09/02/21 [History] Past Medical History HEENT History: Reports: Allergic Rhinitis, Impaired Vision Cardiovascular History: Reports: Afib, CAD, Heart Failure, WA, Pacemaker, Prior Cardiac Arrest, Other (See Below) Other Cardiovascular History: chronic v-fib complete heart block, paroxysmal atrial tachycardia, hx SVT. 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 - Infectious Disease History Infectious Disease History: Reports: MRSA, Shingles, Other (See Below) Other Infectious Disease History: bronchopulmonary aspergilliosis; Covid positive test with no symptoms - Past Surgical History HEENT Surgical History: Reports: Adenoidectomy, Naso-Sinus Surgery, Tonsillectomy Other HEENT Surgeries/Procedures: nasal polyps Cardiovascular Surgical History: Reports: Cardiac Ablation, Pacer, Other (See Below) Other Cardiovascular Surgeries/Procedures: cardiac surgery GI Surgical History: Reports: Appendectomy, Cholecystectomy, EGD Female Surgical History: Reports: Hysterectomy, Salpingo-Oophorectomy Endocrine Surgical History: Reports: Thyroidectomy Neurological Surgical History: Reports: Lumbar Spine, Spinal Fusion Musculoskeletal Surgical History: Reports: Other (See Below) Other Musculoskeletal Surgeries/Procedures:: foot surgery Oncologic Surgical History: Reports: None Dermatological Surgical History: Reports: Other (See Below) Social & Family History - Family History Family Medical History: No Pertinent Family History Cardiac: Reports: CAD Oncologic: Reports: Lung - Tobacco Use Tobacco Use Status *Q: Never Tobacco User - Caffeine Use Caffeine Use: Reports: Soda Other Caffeine Use: 1 per day - Recreational Drug Use Recreational Drug Use: No ED ROS GENERAL - Review of Systems Review Of Systems: See Below Constitutional: Denies: Fever, Chills, Malaise HEENT: Denies: Vision Change Respiratory: Reports: Pleuritic Chest Pain. Denies: Shortness of Breath Cardiovascular: Denies: Chest Pain GI/Abdominal: Denies: Abdominal Pain, Nausea, Vomiting Skin: Reports: No Symptoms Neurological: Reports: No Symptoms ED EXAM, GENERAL - Physical Exam Exam: See Below Exam Limited By: No Limitations General Appearance: Alert, No Apparent Distress Eye Exam: Bilateral Eye: Normal Inspection Head: Atraumatic Neck: Supple, Non-Tender, Other (I could not reproduce the tenderness with palpation of the paracervical muscles or shoulder) Respiratory/Chest: No Respiratory Distress, Lungs Clear Cardiovascular: Regular Rate, Rhythm, Extra Beats (Occasional ectopic beat), Other (Monitor shows normal paced rhythm) GI/Abdominal: Soft, Non-Tender Extremities: No Pedal Edema Neurological: Alert, Oriented Skin Exam: Warm, Dry Course - Vital Signs Last Recorded V/S: Last Vital Signs Temp 97.9 F 09/02/21 17:18 Pulse 80 09/02/21 17:18 Resp 16 09/02/21 17:18 BP 137/51 L 09/02/21 17:18 Pulse Ox 97 09/02/21 17:18 - Orders/Labs/Meds Orders: Active Orders 24 hr Category Date Time Status EKG 12 Lead [EK] Routine Ther 09/02/21 17:53 Ordered Labs: Laboratory Tests 09/02/21 Range/Units 18:22 Troponin I High Sens 5.3 (<=60.3) pg/mL - Re-Assessments/Exams Free Text/Narrative Re-Assessment/Exam: 09/02/21 19:43 A troponin was obtained and was basically 0. EKG showed a paced atrial rhythm. Patient just wanted reassurance that this was not a heart attack, with a negative troponin and symptoms over the last several days that has been ruled out. She will continue with localized massages, pain control, consider a physical therapy consultation or return anytime if worsening. Departure - Departure Time of Disposition: 19:33 Disposition: Home, Self-Care 01 Clinical Impression: Shoulder pain, left Qualifiers: Chronicity: acute Qualified Code(s): M25.512 - Pain in left shoulder Instructions: Musculoskeletal Pain Referrals: Dasha Brumfield MD [Primary Care Provider] - Forms: ED Department Discharge Care Plan Goals: Continue with massage, Tylenol or even ibuprofen or Aleve if your regular physician is comfortable with you taking anti-inflammatories on a short-term basis. Increase activity as tolerated and return anytime if worsening such as increased shortness of breath or more centralized chest pain. Sepsis Event Note (ED) - Evaluation Sepsis Screening Result: No Definite Risk - Focused Exam Vital Signs: Vital Signs Temp Pulse Resp BP Pulse Ox 09/02/21 17:18 97.9 F 80 16 137/51 L 97
== END 2021-09-02 19:33 | disposition home or self-care (01) ==
LOC: JP.ED 16:44
DX: M25.512 Pain in left shoulder (principal); I48.91 Unspecified atrial fibrillation; I25.10 Atherosclerotic heart disease of native coronary artery without angina pectoris; I50.9 Heart failure, unspecified; I25.2 Old myocardial infarction; J45.909 Unspecified asthma, uncomplicated; K21.9 Gastro-esophageal reflux disease without esophagitis; Z91.041 Radiographic dye allergy status; Z88.8 Allergy status to other drugs, medicaments and biological substances; Z88.0 Allergy status to penicillin; Z88.2 Allergy status to sulfonamides; Z91.040 Latex allergy status; Z88.1 Allergy status to other antibiotic agents; Z88.5 Allergy status to narcotic agent; Z79.01 Long term (current) use of anticoagulants; Z79.899 Other long term (current) drug therapy
CPT/HCPCS: 36415; 84484; 93005; 99283-25

== ENCOUNTER 2022-02-24 05:05 | Day surgery (SDC) | payer MEDICAID ==
[2022-02-24] MEDS ORDERED: Dextrose 5%-Lactated Ringers 1,000 ML IV SCH (06:13)
[2022-02-24] MEDS ORDERED: Albuterol/Ipratropium 3.0-0.5 MG/3 ML Neb Soln NEB ONE (06:15)
[2022-02-24] MEDS ORDERED: Bupivacaine 0.5% 50 ML MDV ONE (06:45)
[2022-02-24] MEDS ORDERED: Lidocaine 1% with EPINEPHrine 1:100,000 50 ML MDV ONE (06:45)
[2022-02-24] MEDS ORDERED: Rocuronium 50 MG/5 ML Vial ONE (06:55)
[2022-02-24] MEDS ORDERED: Dexamethasone 4 MG/ML SDV ONE (06:55)
[2022-02-24] MEDS ORDERED: Neostigmine Methylsulfate 1 MG/ML 5 ML Syringe ONE (06:55)
[2022-02-24] MEDS ORDERED: Propofol 200 MG/20 ML SDV ONE (06:55)
[2022-02-24] MEDS ORDERED: Glycopyrrolate 0.2 MG/ML 5 ML MDV ONE (06:55)
[2022-02-24] MEDS ORDERED: Ondansetron 4 MG/2 ML SDV ONE (06:55)
[2022-02-24] MEDS ORDERED: Succinylcholine 200 MG/10 ML MDV ONE (06:55)
[2022-02-24] MEDS ORDERED: Midazolam 1 MG/ML 2 ML SDV ONE (06:59)
[2022-02-24] MEDS ORDERED: fentaNYL 100 MCG/2 ML SDV ONE (06:59)
== END 2022-02-24 10:30 | disposition home or self-care (01) ==
LOC: JP.SDS 05:05
PROVIDERS: ATTEND Surgery
DX: K64.8 Other hemorrhoids (principal); F41.9 Anxiety disorder, unspecified; F32.A Depression, unspecified; E11.9 Type 2 diabetes mellitus without complications; E03.9 Hypothyroidism, unspecified; G43.909 Migraine, unspecified, not intractable, without status migrainosus; I25.2 Old myocardial infarction; J44.9 Chronic obstructive pulmonary disease, unspecified; Z79.899 Other long term (current) drug therapy; Z79.01 Long term (current) use of anticoagulants; Z91.041 Radiographic dye allergy status; Z88.0 Allergy status to penicillin; Z88.2 Allergy status to sulfonamides; Z88.8 Allergy status to other drugs, medicaments and biological substances; Z91.018 Allergy to other foods; Z91.040 Latex allergy status; Z88.5 Allergy status to narcotic agent
CPT/HCPCS: 94640; J0330; J1100; J2250; J2405; J2704; J2710; J3010; J3490; J7121; J7620

== ENCOUNTER 2022-02-26 20:44 | Emergency (ER) | payer MEDICAID ==
[2022-02-26] MEDS ORDERED: Lidocaine 1% with EPINEPHrine 1:100,000 50 ML MDV INFILT STA (21:48)
[2022-02-26] MEDS ORDERED: Bacitracin Oint 1 GM U/D Packet TOP ONE (21:48)
[2022-02-26] MEDS ORDERED: Bacitracin Oint 1 GM U/D Packet ONE (22:21)
== END 2022-02-26 22:52 | disposition home or self-care (01) ==
LOC: JP.ED 20:44
DX: S81.812A Laceration without foreign body, left lower leg, initial encounter (principal); I25.2 Old myocardial infarction; K21.9 Gastro-esophageal reflux disease without esophagitis; Z88.0 Allergy status to penicillin; Z88.2 Allergy status to sulfonamides; Z88.8 Allergy status to other drugs, medicaments and biological substances; W22.8XXA Striking against or struck by other objects, initial encounter
CPT/HCPCS: 12002; 99281; 99282-25

== ENCOUNTER 2022-04-04 06:27 | Observation (INO) | payer MEDICAID ==
[2022-04-04] MEDS ORDERED: SODIUM CHLORIDE 0.9% ONE ×2 (06:30)
[2022-04-04] MEDS ORDERED: MEROPENEM 500 MG ONE ×2 (06:30)
[2022-04-04] MEDS ORDERED: Acetaminophen 500 MG Tab PO ONE ×2 (06:45→15:10)
[2022-04-04] MEDS ORDERED: Dexamethasone 4 MG/ML SDV ONE (07:14)
[2022-04-04] MEDS ORDERED: Neostigmine Methylsulfate 1 MG/ML 5 ML Syringe ONE (07:14)
[2022-04-04] MEDS ORDERED: Propofol 200 MG/20 ML SDV ONE (07:14)
[2022-04-04] MEDS ORDERED: Midazolam 1 MG/ML 2 ML SDV ONE (07:14)
[2022-04-04] MEDS ORDERED: Glycopyrrolate 0.2 MG/ML 5 ML MDV ONE (07:14)
[2022-04-04] MEDS ORDERED: Ondansetron 4 MG/2 ML SDV ONE (07:14)
[2022-04-04] MEDS ORDERED: Rocuronium 50 MG/5 ML Vial ONE (07:14)
[2022-04-04] MEDS ORDERED: Dextrose 5%-Lactated Ringers 1,000 ML IV SCH (07:15)
[2022-04-04] MEDS ORDERED: fentaNYL 250 MCG/5 ML SDV ONE (07:16)
[2022-04-04 07:29] LABS: ESTIMATED GFR 79 mL/min (>60)
[2022-04-04] MEDS ORDERED: Albuterol/Ipratropium 3.0-0.5 MG/3 ML Neb Soln NEB ONE (07:30)
[2022-04-04] MEDS ORDERED: Ketamine 18 MG in Sodium Chloride 0.9% 19.82 ML IV SCH (07:30)
[2022-04-04] MEDS ORDERED: Meropenem 500 MG in Sodium Chloride 0.9% 50 ML IV ONE (07:30)
[2022-04-04] MEDS ORDERED: Ketamine 500 MG/5 ML MDV IV SCH (07:30)
[2022-04-04] MEDS ORDERED: Bupivacaine 0.5%/EPINEPHrine 1:200,000 50 ML MDV ONE (09:22)
[2022-04-04] MEDS ORDERED: Levofloxacin 500 MG Tab PO ONE (10:46)
[2022-04-04] MEDS ORDERED: Coagulation Factor VIIa Recombinant (per MCG) 2 MG Vial IVPUSH STA (12:30)
[2022-04-04] MEDS ORDERED: TRANEXAMIC ACID IV ONE ×4 (12:32→16:30)
[2022-04-04] MEDS ORDERED: SODIUM CHLORIDE 0.9% IV ONE ×4 (12:32→16:30)
[2022-04-04] MEDS ORDERED: Sodium Chloride 0.9% 10 ML SDV IV STA (12:57)
[2022-04-04] MEDS ORDERED: Sodium Chloride 0.9% 1,000 ML IV SCH (13:15)
[2022-04-04] MEDS ORDERED: Coagulation Factor VIIa Recombinant (per MCG) 2 MG Vial IVPUSH ONE (16:30)
[2022-04-04] MEDS ORDERED: Albuterol/Ipratropium 3.0-0.5 MG/3 ML Neb Soln INH PRN (17:32)
[2022-04-04] MEDS ORDERED: HYDROmorphone 2 MG Tab PO PRN (17:32)
[2022-04-04] MEDS: Meropenem 500 MG in Sodium Chloride 0.9% 50 ML IV SCH ×2 (17:36→22:11)
[2022-04-04] MEDS ORDERED: TIZANIDINE 2 MG PO PRN (17:42)
[2022-04-04] MEDS: Albuterol/Ipratropium 3.0-0.5 MG/3 ML Neb Soln INH SCH (22:03)
[2022-04-04] MEDS: Arformoterol 15 MCG/2 ML Neb Soln INH SCH (22:03)
[2022-04-04] MEDS: NORTRIPTYLINE 10 MG PO SCH (22:03)
[2022-04-04] MEDS: Montelukast 10 MG Tab (PTOM) PO SCH (22:03)
[2022-04-04] MEDS: Acetaminophen 500 MG Tab PO PRN (22:10)
[2022-04-05] MEDS: Dextrose 5%-Lactated Ringers 1,000 ML IV SCH ×2 (00:15→20:50)
[2022-04-05] MEDS: Meropenem 500 MG in Sodium Chloride 0.9% 50 ML IV SCH ×4 (04:21→22:58)
[2022-04-05] MEDS: Acetaminophen 500 MG Tab PO PRN ×3 (04:27→18:17)
[2022-04-05] MEDS: Arformoterol 15 MCG/2 ML Neb Soln INH SCH ×2 (07:25→21:50)
[2022-04-05] MEDS: Albuterol/Ipratropium 3.0-0.5 MG/3 ML Neb Soln INH SCH ×4 (07:25→21:50)
[2022-04-05] MEDS: Tiotropium Bromide 4 GM Inhalation Spray (2.5mcg/1 dose; 10 doses) INH SCH (07:26)
[2022-04-05] MEDS ORDERED: BUPROPION 150 MG PO SCH (09:00)
[2022-04-05] MEDS ORDERED: METHYLPREDNISOLONE 4 MG PO SCH (09:00)
[2022-04-05] MEDS ORDERED: ESTRADIOL 0.5 MG PO SCH (09:00)
[2022-04-05] MEDS: LEVOTHYROXINE 175 MCG PO SCH (11:37)
[2022-04-05] MEDS: BUPROPION 300 MG PO SCH (11:37)
[2022-04-05] MEDS: PHENTERMINE 37.5 MG PO SCH (11:38)
[2022-04-05] MEDS: ESTROGENS CONJUGATED 0.625 MG PO SCH ×2 (12:17→21:50)
[2022-04-05] MEDS: PRILOSEC 40 MG PO SCH (12:20)
[2022-04-05] MEDS: Fluticasone NASAL Spray 16 GM Bottle NAS SCH (12:52)
[2022-04-05] MEDS: Famotidine 20 MG Tab (PTOM) PO SCH (12:52)
[2022-04-05] MEDS: NORTRIPTYLINE 10 MG PO SCH (21:50)
[2022-04-05] MEDS: Montelukast 10 MG Tab (PTOM) PO SCH (21:50)
[2022-04-05] MEDS ORDERED: Ondansetron 4 MG/2 ML SDV IVPUSH PRN (23:57)
[2022-04-05] MEDS ORDERED: Metoclopramide 10 MG/2 ML SDV IVPUSH PRN (23:57)
[2022-04-06] MEDS: Meropenem 500 MG in Sodium Chloride 0.9% 50 ML IV SCH (05:01)
[2022-04-06 05:30] LABS: ESTIMATED GFR 91 mL/min (>60)
[2022-04-06] MEDS ORDERED: Metoclopramide 10 MG/2 ML SDV IVPUSH SCH ×3 (06:45→16:00)
[2022-04-06] MEDS: Arformoterol 15 MCG/2 ML Neb Soln INH SCH (07:21)
[2022-04-06] MEDS: Tiotropium Bromide 4 GM Inhalation Spray (2.5mcg/1 dose; 10 doses) INH SCH (07:21)
[2022-04-06] MEDS: Albuterol/Ipratropium 3.0-0.5 MG/3 ML Neb Soln INH SCH ×3 (07:22→14:23)
[2022-04-06] MEDS ORDERED: Azithromycin 125 MG in Sodium Chloride 0.9% 100 ML IV SCH (09:00)
[2022-04-06] MEDS: Acetaminophen 500 MG Tab PO PRN (12:33)
[2022-04-06] MEDS: LEVOTHYROXINE 175 MCG PO SCH (12:34)
[2022-04-06] MEDS: ESTROGENS CONJUGATED 0.625 MG PO SCH (12:34)
[2022-04-06] MEDS: PHENTERMINE 37.5 MG PO SCH (12:34)
[2022-04-06] MEDS: BUPROPION 300 MG PO SCH (12:35)
[2022-04-06] MEDS: PRILOSEC 40 MG PO SCH (12:47)
[2022-04-06] MEDS: Fluticasone NASAL Spray 16 GM Bottle NAS SCH (12:47)
[2022-04-06] MEDS: Famotidine 20 MG Tab (PTOM) PO SCH (12:47)
[2022-04-07] MEDS ORDERED: Azithromycin 125 MG in Sodium Chloride 0.9% 100 ML IV SCH (01:00)
== END 2022-04-06 15:15 | disposition home or self-care (01) ==
LOC: JP.SDS 06:27 → JP.MS 15:40
PROVIDERS: ADMIT Surgery; ATTEND Surgery
DX: K62.3 Rectal prolapse (principal); J45.50 Severe persistent asthma, uncomplicated; F41.9 Anxiety disorder, unspecified; F32.A Depression, unspecified; R43.0 Anosmia; E11.9 Type 2 diabetes mellitus without complications; E03.9 Hypothyroidism, unspecified; I25.2 Old myocardial infarction; Z88.0 Allergy status to penicillin; Z88.2 Allergy status to sulfonamides; Z88.5 Allergy status to narcotic agent; Z88.6 Allergy status to analgesic agent; Z88.1 Allergy status to other antibiotic agents; Z91.040 Latex allergy status; Z88.8 Allergy status to other drugs, medicaments and biological substances; Z01.812 Encounter for preprocedural laboratory examination; Z20.822 Contact with and (suspected) exposure to COVID-19; Z79.51 Long term (current) use of inhaled steroids; Z79.52 Long term (current) use of systemic steroids; Z79.899 Other long term (current) drug therapy; Z79.83 Long term (current) use of bisphosphonates; Z79.890 Hormone replacement therapy
CPT/HCPCS: 36415; 36430; 45541; 80053; 82728; 83735; 84100; 85014; 85018; 85025; 85027; 86850; 86900; 86901; 86920; 86922; 87635; 88304; 94640; 96365; 96366; 96367; 96375; 96376; A9270; G0378; J0456; J1100; J1790; J2185; J2250; J2405; J2704; J2710; J2765; J3010; J3490; J7030; J7121; J7189; P9016; J7605; J7620; U0002

== ENCOUNTER 2022-05-13 21:36 | Emergency (ER) | payer MEDICAID ==
[2022-05-13 22:30] LABS: ESTIMATED GFR 62 mL/min (>60)
== END 2022-05-13 23:37 | disposition home or self-care (01) ==
LOC: JP.ED 21:36
DX: R06.2 Wheezing (principal); T50.995A Adverse effect of other drugs, medicaments and biological substances, initial encounter; I48.91 Unspecified atrial fibrillation; I25.10 Atherosclerotic heart disease of native coronary artery without angina pectoris; I25.2 Old myocardial infarction; K21.9 Gastro-esophageal reflux disease without esophagitis; Z95.0 Presence of cardiac pacemaker; Z88.0 Allergy status to penicillin; Z91.041 Radiographic dye allergy status; Z88.8 Allergy status to other drugs, medicaments and biological substances; Z88.2 Allergy status to sulfonamides; Z88.5 Allergy status to narcotic agent; Z91.040 Latex allergy status; Z79.899 Other long term (current) drug therapy
CPT/HCPCS: 36415; 80053; 82803; 85025; 86140; 99283

== ENCOUNTER 2022-07-23 17:50 | Emergency (ER) | payer MEDICAID ==
[2022-07-23] MEDS ORDERED: Bacitracin Oint 1 GM U/D Packet TOP ONE (19:26)
[2022-07-23] MEDS ORDERED: Lidocaine 1% 5 ML VIAL INJECT ONE (19:26)
== END 2022-07-23 20:01 | disposition home or self-care (01) ==
LOC: JP.ED 17:50
DX: S51.812A Laceration without foreign body of left forearm, initial encounter (principal); I48.91 Unspecified atrial fibrillation; I25.10 Atherosclerotic heart disease of native coronary artery without angina pectoris; I50.9 Heart failure, unspecified; I25.2 Old myocardial infarction; J45.909 Unspecified asthma, uncomplicated; K21.9 Gastro-esophageal reflux disease without esophagitis; Z79.01 Long term (current) use of anticoagulants; Z91.041 Radiographic dye allergy status; Z88.0 Allergy status to penicillin; Z88.8 Allergy status to other drugs, medicaments and biological substances; Z88.2 Allergy status to sulfonamides; Z88.1 Allergy status to other antibiotic agents; Z88.5 Allergy status to narcotic agent; Z91.040 Latex allergy status; Z79.899 Other long term (current) drug therapy; W26.8XXA Contact with other sharp object(s), not elsewhere classified, initial encounter
CPT/HCPCS: 12002; 99282

== ENCOUNTER 2022-08-03 17:08 | Emergency (ER) | payer MEDICAID ==
[2022-08-03] MEDS ORDERED: Cyclobenzaprine 10 MG Tab PO ONE (18:25)
[2022-08-03] MEDS ORDERED: Ketorolac 30 MG/ML SDV IM ONE (18:25)
== END 2022-08-03 20:30 | disposition home or self-care (01) ==
LOC: JP.ED 17:08
DX: M54.50 Low back pain, unspecified (principal); Z91.041 Radiographic dye allergy status; Z88.8 Allergy status to other drugs, medicaments and biological substances; Z88.0 Allergy status to penicillin; Z91.040 Latex allergy status; Z88.5 Allergy status to narcotic agent; Z88.2 Allergy status to sulfonamides; Z88.1 Allergy status to other antibiotic agents; Z79.899 Other long term (current) drug therapy; Z79.01 Long term (current) use of anticoagulants
CPT/HCPCS: 96372; 99283; A9270; J1885

== ENCOUNTER 2022-11-17 07:12 | Emergency (ER) | payer MEDICAID ==
[2022-11-17] MEDS ORDERED: Ketorolac 30 MG/ML SDV IM ONE (08:42)
[2022-11-17] MEDS ORDERED: Acetaminophen/oxyCODONE 325-7.5 MG Tab PO ONE (08:43)
[2022-11-17] MEDS ORDERED: Ondansetron 4 MG Tab.DIS PO ONE (08:59)
[2022-11-17] MEDS ORDERED: HYDROmorphone 0.5 MG/0.5 ML Syringe IM ONE (09:39)
[2022-11-17] MEDS ORDERED: HYDROmorphone 1 MG/ML Syringe IM ONE (13:14)
[2022-11-17] MEDS ORDERED: Ondansetron 4 MG/2 ML SDV IVPUSH ONE (17:03)
[2022-11-17] MEDS ORDERED: Metoclopramide 10 MG Tab PO ONE (19:37)
== END 2022-11-17 20:37 | disposition home or self-care (01) ==
LOC: JP.ED 07:12
DX: M51.36 Other intervertebral disc degeneration, lumbar region (principal); M48.061 Spinal stenosis, lumbar region without neurogenic claudication; I25.10 Atherosclerotic heart disease of native coronary artery without angina pectoris; I48.20 Chronic atrial fibrillation, unspecified; K21.9 Gastro-esophageal reflux disease without esophagitis; Z91.040 Latex allergy status; Z88.5 Allergy status to narcotic agent; Z88.0 Allergy status to penicillin; Z88.2 Allergy status to sulfonamides; Z88.8 Allergy status to other drugs, medicaments and biological substances; Z91.041 Radiographic dye allergy status; Z88.1 Allergy status to other antibiotic agents; Z79.01 Long term (current) use of anticoagulants; Z79.899 Other long term (current) drug therapy
CPT/HCPCS: 93005; 96372; 96374; 99284; A9270; J1170; J1885; J2405; Q0162